=== PATIENT | male | born 1950 | race Caucasian/White ===

== ENCOUNTER 2019-08-13 09:08 | Inpatient (IN) ==
[2019-08-13] MEDS ORDERED: Ondansetron 4 MG/2 ML VIAL IVP ONE (09:27)
[2019-08-13] MEDS ORDERED: *HR* FentaNYL (PF) 100 MCG/2 ML VIAL IVP ONE ×3 (09:27→19:48)
[2019-08-13] MEDS ORDERED: 0.9 % Sodium Chloride 500 ML IVC ONE (09:28)
[2019-08-13 09:50] LABS: Basophils % 0.3 %; Eosinophils % 0.1 %; Hematocrit 30.2 % (37.5-50.1); Hemoglobin 10.3 g/dL (12.9-16.9); Immature Granulocytes % 0.3 % (0-4); Lymphocytes # 0.5 K/mcL (0.6-4.6); Lymphocytes % 3.8 %; Mean Corpuscular HGB Conc 34.1 g/dL (31.6-35.5); Mean Corpuscular Hemoglobin 31.7 pg (28.0-33.3); Mean Corpuscular Volume 92.9 fL (83.0-100.0); Mean Platelet Volume 10.8 fL (9.4-12.4); Neutrophils # 10.9 K/mcL (1.6-8.9); Platelet Count 226 K/mcL (140-400); Red Blood Count 3.25 M/mcL (4.19-5.50); Red Cell Distribution Width 13.2 % (11.5-14.5); Segmented Neutrophils % 87.5 %; White Blood Count 12.5 K/mcL (4.3-11.1)
[2019-08-13 10:01] LABS: INR 1.2; Prothrombin Time 13.7 Seconds (9.4-12.1)
--- NOTE | 2019-08-13 10:01 | Emergency Department Note ---
Disposition Clinical Impression: RAGHAVENDRA (acute kidney injury) Closed right hip fracture Qualifiers: Encounter type: initial encounter Qualified Code(s): S72.001A - Fracture of unspecified part of neck of right femur, initial encounter for closed fracture Disposition: Admitted As Inpatient Forms: ED Satisfaction Letter Time of Disposition: 10:02 Fall HPI - General Chief Complaint: ED Fall Stated Complaint: R Hip Pain/fall Time Seen by Provider: 08/13/19 09:19 Source: patient, EMS Limitations: no limitations Nursing Notes Reviewed: Yes Vital Signs Reviewed: Yes - History of Present Illness HPI Narrative: 68-year-old male presents to [facility] for a fall. States he was standing last night in turn too quickly and fell landing on his right hip. States is been unable to ambulate. He was able to crawl himself over to the chair today. He is been having to urinate on himself is unable to get up to be. He is concerned about a right hip fracture. He denies any LOC or any head or neck injury. Pending a right-sided right hip pain. Denies chest pain. No shortness of breath. Does not take any blood thinners. - Related Data Allergies Allergy/AdvReac Type Severity Reaction Status Date / Time No Known Allergies Allergy Verified 08/13/19 09:49 Review of Systems: Gen.: No fevers or chills or new weakness Eyes: Denies double vision or any vision changes Ears: Denies any otalgia Pharynx: Denies sore throat CV: Denies chest pain. Denies palpitations Respiratory: Denies any cough or sputum production. No shortness of breath. GI: Denies any nausea, vomiting, diarrhea, constipation. Denies abdominal pain Neuro: Denies any headache. No problems with ambulation. No numbness. Skin: Denies any rashes or abrasions Psych: Denies any depression or suicidal or homicidal ideation Musculoskeletal: Positive for right hip pain Fall PMH - Past Medical History Medical history: Reports: COPD, hypertension Psychiatric history: Reports: depression - Social History Smoking Status: Current every day smoker Alcohol use: Reports: rarely Drug use: Reports: none Physical Exam - General Limitations: no limitations General appearance: alert, in no apparent distress - Head Head exam: atraumatic, normocephalic - Eye Eye exam: Present: normal appearance - Neck Neck exam: Present: normal inspection, full ROM, trachea midline - Chest Chest inspection: Present: normal inspection, symmetric chest wall rise - Respiratory Respiratory exam: Present: wheezes - Cardiovascular Cardiovascular exam: Present: regular rate, normal rhythm - Abdominal Exam Abdominal exam: Present: soft, Non-Tender, normal bowel sounds - Expanded Lower Extremity Exam Hip/Pelvis exam: Present: tenderness (Patient has deformity to the right hip concerning for hip fracture. The right leg is externally rotated and shortened) - Back Exam Back exam: Present: normal inspection - Neurological Exam Neurological exam: Present: alert, oriented X3 - Psychiatric Psychiatric exam: Present: normal affect, normal mood - Skin Skin exam: Present: warm, dry, intact Course Vital Signs Temperature 98.9 F 08/13/19 09:13 Pulse Rate 96 08/13/19 09:13 Respiratory Rate 14 08/13/19 09:13 Blood Pressure 137/80 08/13/19 09:13 O2 Sat by Pulse Oximetry 96 08/13/19 09:13 Temperature 98.9 F 08/13/19 09:13 Pulse Rate 96 08/13/19 09:13 Respiratory Rate 14 08/13/19 09:13 Blood Pressure 137/80 08/13/19 09:13 O2 Sat by Pulse Oximetry 96 08/13/19 09:13 Oxygen Delivery Oxygen Delivery Room Air Fall - MDM Narrative Medical decision making narrative: Patient with obvious right hip fracture. Consult orthopedic we will admit to medicine. - Medical Records Medical records reviewed: Yes I reviewed the patient's medical records. - Lab Data Lab results reviewed: Yes I reviewed the patient's lab results. Result diagrams: 08/13/19 09:38 08/13/19 09:38 Lab Results 08/13/19 08/13/19 08/13/19 Range/Units 09:38 09:38 09:38 WBC 12.5 H (4.3-11.1) K/mcL RBC 3.25 L (4.19-5.50) M/mcL Hgb 10.3 L (12.9-16.9) g/dL Hct 30.2 L (37.5-50.1) % MCV 92.9 (83.0-100.0) fL MCH 31.7 (28.0-33.3) pg MCHC 34.1 (31.6-35.5) g/dL RDW 13.2 (11.5-14.5) % Plt Count 226 (140-400) K/mcL MPV 10.8 (9.4-12.4) fL Immature Gran % 0.3 (0-4) % Seg Neutrophils % 87.5 % Lymphocytes % 3.8 % Monocytes % 8.0 % Eosinophils % 0.1 % Basophils % 0.3 % Neutrophils # 10.9 H (1.6-8.9) K/mcL Lymphocytes # 0.5 L (0.6-4.6) K/mcL Monocytes # 1.0 (0.0-1.3) K/mcL Eosinophils # 0.0 (0.0-0.6) K/mcL Basophils # 0.0 (0.0-0.2) K/mcL PT 13.7 H (9.4-12.1) Seconds INR 1.2 Sodium 129 L (136-145) mEq/L Potassium 3.9 (3.5-5.1) mEq/L Chloride 92 L (98-107) mEq/L Carbon Dioxide 20 L (23-29) mEq/L BUN 26 H (8-23) mg/dL Creatinine 1.95 H (0.70-1.30) mg/dL Est GFR ( Amer) 42 L (> 60) Est GFR (Non-Af Amer) 34 L (> 60) BUN/Creatinine Ratio 13 (6-26) Glucose 118 H (70-105) mg/dL Calculated Osmolality 274 L (280-300) Calcium 8.9 (8.6-10.3) mg/dL - Radiology Data Radiology results reviewed: Yes I reviewed the patient's radiology results. - EKG Data EKG attestation: Yes I reviewed and interpreted this EKG. EKG results narrative: Rate of 94. No sinus rhythm. Normal axis. FL interval 159. QRS 102. QTC 479. No signs acute ischemia.
[2019-08-13 10:10] LABS: Calcium 8.9 mg/dL (8.6-10.3); Potassium 3.9 mEq/L (3.5-5.1)
[2019-08-13 11:23] LABS: Bilirubin,Urine Negative (Negative); Blood,Urine Negative (Negative); Clarity,Urine Clear (Clear); Color,Urine Yellow (Yellow); Glucose,Urine (UA) Normal (Normal); Ketones,Urine Trace mg/dL (Negative); Leukocyte Esterase,Urine Negative (Negative); Nitrite,Urine Negative (Negative); PH,Urine 5.5 pH Units (5.0-8.0); Protein,Urine Negative (Neg-Trace); Specific Gravity,Urine 1.013 (1.010-1.025); Urobilinogen,Urine Normal (Normal)
--- NOTE | 2019-08-13 11:38 | Internal Med History&Physical ---
Date of Encounter: 08/13/19 Time of Encounter: 11:35 Internal Medicine - H&P: HPI Chief complaint: fall Admitted From: Home Plans for Post Hospital Care: Home History of present illness: Mr. Petty is a 68 year old male past medical history of COPD and hypertension came in today after he fell yesterday with complain of right sided back pain. He said he fell yesterday sutures are around which is not completely able to explain. He said he might have slipped while turning too fast quickly on the right. He does mention history of dizziness for past few weeks. He denies being on any blood thinner. Denies previous significant falls. Denies any fevers chills nausea vomiting or diarrhea. He denies any history of heart attacks or stents. He denies any history of strokes or heart failure. He is taking any medication for blood pressure was not able to remember which one. Denies any allergies. Patient was evaluated in the ER where he was found to have right femoral intertrochanteric neck fracture commuted. He denied pain anywhere else. Chest x-ray did show subacute nondisplaced left rib fracture eighth and ninth however he did not have any pain. Not able to remember any event around it. Patient has chronic cough and he smokes 1-2 cigarettes a day. He is also on oxygen at home he says and uses nebulizer. Denies any increased cough or expectoration fevers or chills. He had some difficulty urinating and cramer catheter was placed in the ER. ER evaluation also showed RAGHAVENDRA however baseline function unknown. He denies any diabetes. Mild anemia and leukocytosis also noted. No obvious signs of bleeding or source of infection. Admission was requested for further management. Past Med Surg Social Fam HX - Past Medical History Medical history: COPD, hypertension Psychiatric history: depression - Past Surgical History Additional surgical history: tonsillectomy - Social History Smoking Status: Current every day smoker Alcohol use: rarely Drug use: none - Additional Family History Additional family history: No known family history Internal Medicine - H&P: Meds Allergy/AdvReac Type Severity Reaction Status Date / Time No Known Allergies Allergy Verified 08/13/19 09:49 All Systems PM: A 10-system review of systems was performed and is negative for pertinent findings except as documented above in the HPI. - Constitutional Vitals: Temp Pulse Resp BP Pulse Ox 98.9 F 96 15 145/81 96 08/13/19 09:13 08/13/19 09:13 08/13/19 11:14 08/13/19 11:14 08/13/19 09:13 Exam: Constitutional: Vitals as noted. Conversant. No Apparent Distress. poorly kept Eyes : Sclera white, conjunctiva clear, no lid lag, PEARLA. ENT : Grossly normal hearing. Moist mucus membranes. No JVD, no cervical lymphadenopathy. no thyromegaly or mass. Respiratory : Clear to auscultation bilaterally. No accessory muscle use, rales, rhonchi or wheezes Cardiovascular : RRR, +S1, +S2. no murmur, gallop, rubs. No chest wall tenderness GI/Abdominal : Soft, Non-tender, Non-distended, normal bowel sounds, soft, no peritoneal signs. no orgenomegaly or mass appreciated. no hernia. Musculoskeletal: no edema or cyanosis, warm extremities, pulses palpable and symmetrical in UE/LE. Rt leg extrenally rotated and pain with ROM, Lt leg without any pain. Neurological: AO X3, CN II-XII grossly intact, grossly normal motor and sensory exam. Skin: ecchymosis on both hand. bruise on Rt leg and Rt side of chest Pych: AOx3. Internal Med - H&P Results - Labs CBC & Chem 7: 08/13/19 09:38 08/13/19 09:38 Labs: Short CBC 08/13/19 Range/Units 09:38 WBC 12.5 H (4.3-11.1) K/mcL Hgb 10.3 L (12.9-16.9) g/dL Hct 30.2 L (37.5-50.1) % Plt Count 226 (140-400) K/mcL Neutrophils # 10.9 H (1.6-8.9) K/mcL BMP 08/13/19 09:38 Sodium 129 L Potassium 3.9 Chloride 92 L Carbon Dioxide 20 L BUN 26 H Creatinine 1.95 H Glucose 118 H Calcium 8.9 Urine 08/13/19 Range/Units 11:05 Urine Color Yellow (Yellow) Urine Clarity Clear (Clear) Urine pH 5.5 (5.0-8.0) pH Units Ur Specific [place] 1.013 (1.010-1.025) Urine Protein Negative (Neg-Trace) mg/dL Urine Glucose (UA) Normal (Normal) mg/dL - EKG Data -: EKG Interpreted by Myself EKG shows normal: sinus rhythm - EKG Data Prior EKG available for review: no - Impressions ITS Impressions Hip X-Ray 08/13/19 09:51 IMPRESSION: 1. Comminuted right femoral intertrochanteric neck fracture. D/ / 08/13/2019 09:56:55 Devang Collins MD / linda Interpreting Provider: Devang Collins MD Chest X-Ray 08/13/19 10:11 IMPRESSION: 1. Subacute healing nondisplaced left posterolateral 8th and 9th rib fractures. 2. No pneumothorax or acute pulmonary process. D/ / 08/13/2019 10:17:22 Karthik Herndon MD / jacque Interpreting Provider: Karthik Herndon MD - Assessment and Plan (1) Closed right hip fracture Current Visit: Yes Status: Acute Assessment and plan: Patient with closed right femoral intertrochanteric neck fracture which is comminuted. Patient not on any blood thinners. We will keep nothing by mouth after midnight for hospital surgery tomorrow. Ortho consulted and case discussed. RCRI risk score of 0. However he does appear to have elevated creatinine. Patient had low risk of undergoing surgery without any other workup. We will obtain echocardiogram given his risk factors of smoking and hypertension Control pain with Percocet and Zofran for nausea Qualifiers: Encounter type: initial encounter Qualified Code(s): S72.001A - Fracture of unspecified part of neck of right femur, initial encounter for closed fracture (2) Leukocytosis Current Visit: Yes Status: Acute Assessment and plan: Likely reactive from fall No signs of infection Monitor off antibiotics Qualifiers: Leukocytosis type: unspecified Qualified Code(s): D72.829 - Elevated white blood cell count, unspecified (3) RAGHAVENDRA (acute kidney injury) Current Visit: Yes Status: Acute Assessment and plan: Unknown baseline. Creatinine of 1.95. Patient was not able to urinate in ER and Cramer was placed. He said he did not feel urinating however when the catheter was placed and urine came out. Possible postrenal of prerenal component. We will keep on gentle IV fluids and repeat BMP later today. We will obtain urine sodium and creatinine. (4) Anemia Current Visit: Yes Status: Acute Assessment and plan: Patient with anemia of 10.3. Unknown baseline. Patient unaware of his anemia. We will obtain iron panel and ferritin, and B12 and folate Patient on a blood thinner and no signs of active bleeding. Will need outpatient colonoscopy workup. Qualifiers: Anemia type: unspecified type Qualified Code(s): D64.9 - Anemia, unspecified (5) DVT prophylaxis Current Visit: Yes Status: Acute Assessment and plan: Heparin subcutaneous - Time Spent With Patient Total time spent is greater than 50% in coordination of care (as documented) at patient's floor/unit and/or counseling patient:
[2019-08-13] MEDS ORDERED: *HR* FentaNYL (PF) 100 MCG/2 ML VIAL IVP PRN (11:50)
[2019-08-13] MEDS ORDERED: Ondansetron 4 MG/2 ML VIAL IVP PRN (11:59)
--- NOTE | 2019-08-13 13:16 | Orthopedic Consult Note ---
Date of Encounter: 08/13/19 Time of Encounter: 12:50 Assessment and Plan (1) Closed right hip fracture Current Visit: Yes Status: Acute Xrays showed right femoral intertrochanteric neck fracture. Discussed case with Dr. Eaton who recommends right hip IM nailing to be performed by him tomorrow 08/14. I discussed the procedure as well as r/b/a with the patient and he expressed understanding. All questions were answered. Consent was signed and placed in chart. NWB to RLE and no motion of RLE before surgery. NPO after midnight tonight. Pain control per primary team. Will likely require ECF placement for rehab as he lives alone DVT prophylaxis postop: lovenox for 2 weeks then aspirin 325mg daily for 4 weeks. Qualifiers: Encounter type: initial encounter Qualified Code(s): S72.001A - Fracture of unspecified part of neck of right femur, initial encounter for closed fracture History of Present Illness Chief complaint: right hip pain HPI: Mr. Petty is a 68 year old male presented to [facility] with right hip pain after fa ll last night in home around 9pm. He states he does not remember exactly why he fell but thinks he likely slipped on his floor as he was wearing socks on hardwood floor. States he often has dizzy spells so may have felt dizzy at the time. States landed on right side and has had right hip pain since then. currently pain is rated 1/10 and achy but becomes intense sharp with any movement. Denies any numbness or tingling in legs. Denies chest pain, SOB or fevers. Denies hitting his head in the fall or LOC. He chronically has raspy voice from his COPD. States he lives at home alone. He has a walker he uses only for long distances but around the house he usually does not need his walker. Past Med Surg Social Fam HX - Past Medical History Medical history: COPD, hypertension Psychiatric history: depression - Past Surgical History Additional surgical history: tonsillectomy - Social History Smoking Status: Current every day smoker Alcohol use: rarely Drug use: none Medications and Allergies Allergy/AdvReac Type Severity Reaction Status Date / Time No Known Allergies Allergy Verified 08/13/19 09:49 All Systems Reviewed: The remainder of the systems were reviewed and are negative - Constitutional Constitutional: as per HPI - Cardiovascular Cardiovascular: as per HPI - Respiratory Respiratory: as per HPI - Musculoskeletal Musculoskeletal: as per HPI Physical Exam - Constitutional Vitals: Temp Pulse Resp BP Pulse Ox 97.5 F L 91 14 129/72 90 08/13/19 12:28 08/13/19 12:28 08/13/19 12:28 08/13/19 12:28 08/13/19 12:28 - Hip right Tenderness with palpation: lateral (right hip has ecchymosis noted to lateral side. No visible open wounds or lesion, no erythema. RLE is shortened and externally rotated. tenderness to palpation to lateral hip. motion of hip and knee restricted secondary to known fracture good dorsiflexion of foot. sensation intact distally.) Results - Labs Result Diagrams: 08/13/19 09:38 08/13/19 09:38 Labs: Abnormal lab results WBC 12.5 K/mcL (4.3-11.1) H 08/13/19 09:38 RBC 3.25 M/mcL (4.19-5.50) L 08/13/19 09:38 Hgb 10.3 g/dL (12.9-16.9) L 08/13/19 09:38 Hct 30.2 % (37.5-50.1) L 08/13/19 09:38 Neutrophils # 10.9 K/mcL (1.6-8.9) H 08/13/19 09:38 Lymphocytes # 0.5 K/mcL (0.6-4.6) L 08/13/19 09:38 PT 13.7 Seconds (9.4-12.1) H 08/13/19 09:38 Sodium 129 mEq/L (136-145) L 08/13/19 09:38 Chloride 92 mEq/L (98-107) L 08/13/19 09:38 Carbon Dioxide 20 mEq/L (23-29) L 08/13/19 09:38 BUN 26 mg/dL (8-23) H 08/13/19 09:38 Creatinine 1.95 mg/dL (0.70-1.30) H 08/13/19 09:38 Est GFR ( Amer) 42 (> 60) L 08/13/19 09:38 Est GFR (Non-Af Amer) 34 (> 60) L 08/13/19 09:38 Glucose 118 mg/dL (70-105) H 08/13/19 09:38 Calculated Osmolality 274 (280-300) L 08/13/19 09:38 Urine Ketones Trace mg/dL (Negative) H 08/13/19 11:05 H & H 08/13/19 Range/Units 09:38 Hgb 10.3 L (12.9-16.9) g/dL Hct 30.2 L (37.5-50.1) % All other labs normal. - Diagnostic results Hip x-ray: report reviewed, image reviewed Consult Discharge Plan - Plan [facility]errals: [facility]Primary Care Provider[facility] - - Attending Attestation Case and plan of care discussed with supervising physician, Dr. Eaton, who was available for all aspects of care.
[2019-08-13] MEDS: 0.9 % Sodium Chloride 1,000 ML IVC SCH (13:52)
[2019-08-13] MEDS: *HR* OxyCODONE/APAP 5/325 TABLET PO PRN ×2 (13:52→17:59)
[2019-08-13] MEDS: *HR* Heparin 5,000 UNIT/ML VIAL SQ SCH ×3 (13:52→21:23)
--- NOTE | 2019-08-13 18:59 | Anesthesia Evaluation PreOp ---
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) Other Medical History: Denies Any Significant HX Anesthesia History: No Prior Anesthetic Complications, Past Anesthesia (tonsills) Alcohol Use: rarely Drug use: none Medications and Allergies Albuterol Sulfate [Proair Hfa] 2 puff PO Q4H PRN 08/13/19 [History] Cyclobenzaprine [Flexeril] 10 mg PO QAM 08/13/19 [History] Escitalopram [Lexapro] 20 mg PO QAM 08/13/19 [History] Ibuprofen [Ibu] 400 mg PO TID PRN 08/13/19 [History] Melatonin [Melatin] 9 mg PO HS 08/13/19 [History] Multivitamin [Daily Multiple Vitamin] 1 tab PO DAILY 08/13/19 [History] Naproxen [Naprosyn] 500 mg PO BID PRN 08/13/19 [History] hydrOXYzine HCl [Hydroxyzine HCl] 25 mg PO TID PRN 08/13/19 [History] Allergy/AdvReac Type Severity Reaction Status Date / Time No Known Allergies Allergy Verified 08/13/19 21:48 - Meds/Allergy Pre-op Review Medications Reviewed: Yes Allergies Reviewed: Yes Beta Blockers on Current Med List: No Anesthesia Results - Labs 08/13/19 09:38 08/13/19 18:31 Anesthesia Exam Vital Signs/O2 Sat, Most Current Temp Pulse Resp BP Pulse Ox 97.7 F 83 13 104/63 89 08/13/19 14:48 08/13/19 14:48 08/13/19 14:48 08/13/19 14:48 08/13/19 14:48 Weight: 47kg NPO (# of Hours): MN - HEENT Pupil (Motor): Pupils equal, EOMI Mallampati: II Teeth: Missing, Poor dentition Denture Type: Upper: Complete, Lower: Partial Oral Opening: Greater than 3 - CADDY/CADDIE SUPERVISOR LOC: Oriented CADDY/CADDIE SUPERVISOR Motor: Normal RUE, Normal LUE, Normal LLE, Normal Face, Deficit RLE (hip fx) CADDY/CADDIE SUPERVISOR Sensory: Normal: RUE, LUE, RLE, LLE, Face - Cardiac Rhythm: Regular - Pulmonary Breath Sounds: bilateral Clear Respiratory Effort: Symmetrical Anesthesia Assess/Plan ASA Score: 3 Level of consciousness: Cooperative Anesthetic Plan: General Monitoring Plan: Standard Monitors Recovery Plan: PACU
[2019-08-13 19:46] LABS: Potassium 3.9 mEq/L (3.5-5.1)
[2019-08-14] MEDS ORDERED: Ipratropium/Albuterol Neb 3 ML IH PRN ×2 (03:27→19:03)
[2019-08-14] MEDS: 0.9 % Sodium Chloride 1,000 ML IVC SCH ×2 (03:45→20:17)
[2019-08-14] MEDS: *HR* Heparin 5,000 UNIT/ML VIAL SQ SCH ×3 (06:12→23:35)
[2019-08-14 06:18] LABS: Basophils # 0.1 K/mcL (0.0-0.2); Basophils % 0.8 %; Eosinophils # 0.2 K/mcL (0.0-0.6); Eosinophils % 2.6 %; Hematocrit 24.6 % (37.5-50.1); Immature Granulocytes % 0.4 % (0-4); Lymphocytes % 13.3 %; Mean Corpuscular HGB Conc 33.7 g/dL (31.6-35.5); Mean Corpuscular Hemoglobin 31.4 pg (28.0-33.3); Mean Corpuscular Volume 93.2 fL (83.0-100.0); Mean Platelet Volume 10.1 fL (9.4-12.4); Monocytes # 0.8 K/mcL (0.0-1.3); Monocytes % 10.2 %; Neutrophils # 5.7 K/mcL (1.6-8.9); Platelet Count 245 K/mcL (140-400); Red Blood Count 2.64 M/mcL (4.19-5.50); Red Cell Distribution Width 13.3 % (11.5-14.5); Segmented Neutrophils % 72.7 %; White Blood Count 7.8 K/mcL (4.3-11.1)
[2019-08-14 06:19] LABS: Hemoglobin 8.3 g/dL (12.9-16.9)
[2019-08-14 06:37] LABS: BUN/Creatinine Ratio 17 (6-26); Blood Urea Nitrogen 22 mg/dL (8-23); Calcium 7.7 mg/dL (8.6-10.3); Carbon Dioxide 26 mEq/L (23-29); Chloride 99 mEq/L (98-107); Glucose 106 mg/dL (70-105); Osmolality,Calculated 276 (280-300); Sodium 131 mEq/L (136-145); eGFR For African Americans > 60 (> 60); eGFR For Non-African Americans 54 (> 60)
[2019-08-14 06:41] LABS: % Iron Saturation 15 % (20-55); Iron 28 mcg/dL (65-175); Transferrin 131 mg/dL (203-362)
[2019-08-14 06:53] LABS: Ferritin 399 ng/mL (20-250)
[2019-08-14 06:58] LABS: Folate 19.7 ng/mL (3.0-16.0)
--- NOTE | 2019-08-14 09:00 | Internal Med Progress Note ---
<Dillon Mcmullen - Last Filed: 08/14/19 13:27> Hospitalist Progress Note - Encounter Date of Encounter: 08/14/19 Time of Encounter: 09:55 - Exam Vitals: Temp Pulse Resp BP Pulse Ox 98.5 F 84 17 113/69 95 08/14/19 11:25 08/14/19 11:25 08/14/19 11:25 08/14/19 11:25 08/14/19 11:25 - Assessment and Plan (1) Closed right hip fracture Current Visit: Yes Status: Acute (2) Leukocytosis Current Visit: Yes Status: Acute (3) RAGHAVENDRA (acute kidney injury) Current Visit: Yes Status: Acute (4) Anemia Current Visit: Yes Status: Acute (5) DVT prophylaxis Current Visit: Yes Status: Acute - Time Spent with Patient Total time spent is greater than 50% in coordination of care (as documented) at patient's floor/unit and/or counseling patient: Internal Medicine: Result - Labs CBC & Chem 7: 08/14/19 05:51 08/14/19 05:51 Labs: Short CBC 08/14/19 Range/Units 05:51 WBC 7.8 (4.3-11.1) K/mcL Hgb 8.3 L D (12.9-16.9) g/dL Hct 24.6 L (37.5-50.1) % Plt Count 245 (140-400) K/mcL Neutrophils # 5.7 (1.6-8.9) K/mcL BMP 08/13/19 08/14/19 18:31 05:51 Sodium 129 L 131 L Potassium 3.9 4.0 Chloride 96 L 99 Carbon Dioxide 25 26 BUN 26 H 22 Creatinine 1.70 H 1.31 H Glucose 118 H 106 H Calcium 8.0 L 7.7 L - ABG Interpretation ABG results: PT/INR, D-dimer PT 13.7 Seconds (9.4-12.1) H 08/13/19 09:38 Consult Discharge Plan - Plan [facility]errals: [facility] [Primary Care Provider[facility] - - Attending Attestation I saw evaluated and examined this patient and reviewed objective data including labs and my medical decision-making was reviewed with the Resident Physician, Nataly Briggs. I agree with the documented findings, disposition and treatment plan as described except to any changes set forth below. We independently had [id number] contact with the patient. Patient lying down in bed. Reports pain only with movement involving his right hip. Does have underlying COPD and chronic respiratory failure and currently on baseline oxygen supplementation. Plan for surgery later today. Continue supportive care. Patient has anemia and is at risk for worsening of anemia post surgery. Will monitor hemoglobin levels and transfuse if hemoglobin less than 8. <ChesterNataly Winston - Last Filed: 08/14/19 19:00> Hospitalist Progress Note - Encounter Date of Encounter: 08/14/19 - Subjective Interval History: Car Petty is a 68-year-old male who presented yesterday after mechanical fall previous night. PMH includes COPD on O2 at night and nebulizers, and HTN. Patient reports that yesterday evening, he fell on right hip and was unable to walk afterward. He managed to crawl to a chair. In the ED, X-ray of right hip showed comminuted right femoral intertrochanteric neck fracture. Chest x-ray showed subacute healing nondisplaced left posterior lateral rib 8 and 9 fractures. No pneumothorax or acute pulmonary processes were seen. Orthopedic consult plans right hip IM nailing today. This morning, patient reports the pain is not bad. If he tries to move his leg or he touches it the pain however goes to 8 out of 10. He reports dizziness on standing lately. About one month ago he reports trying to sleep and his ribs really hurt at that time. X-ray done at the [place] at that time was unremarkable. - Exam Vitals: Temp Pulse Resp BP Pulse Ox 97.6 F 79 16 131/76 91 08/14/19 08:50 08/14/19 08:50 08/14/19 08:50 08/14/19 08:50 08/14/19 08:50 Exam: GEN.: Thin, awake, conversant. EYES: Anicteric, clear sclera. Pupils equal and reactive to light bilaterally HENT: Atraumatic, normocephalic. Moist mucosa NECK: Normal carotid pulses. Supple CV: Regular rate and rhythm. Normal S1 and S2. No murmurs, clicks, or gallops RESPIRATORY: Clear to auscultation bilaterally. No wheezes, rhonchi, rales. ABDOMEN: Soft, nontender, nondistended. Normal bowel sounds heard EXTREMITIES: No edema. Acyanotic. Warm, dry. Peripheral pulses 2+/4. Capillary refill <2 seconds SKIN: Patient has signs of venous stasis in lower extremities bilaterally. Multiple bruises over her hands and legs likely due to recent fall. - Assessment and Plan (1) Closed right hip fracture Current Visit: Yes Status: Acute Assessment and Plan: Orthopedics to follow. We will await their recommendations Have ordered incentive spirometry 6 times per hour after surgery -Continue DVT prophylaxis (2) RAGHAVENDRA (acute kidney injury) Current Visit: Yes Status: Acute Assessment and Plan: Creatinine was 1.31 today. We will continue to monitor this. Continue to give IV fluids. (3) Anemia Current Visit: Yes Status: Acute Assessment and Plan: Hemoglobin and hematocrit today were 8.3 and 24.6 and Trend hemoglobin and hematocrit every 6 hours after surgery Transfuse packed red blood cells if hemoglobin is less than 8. Iron studies were abnormal; have ordered ferrous sulfate 325 mg twice a day (4) Hypocalcemia Current Visit: Yes Status: Acute Assessment and Plan: Calcium level was 7.7 today, down from 8.0. We will continue to monitor calcium level Have ordered albumin level DVT Prophylaxis: Currently on subcutaneous heparin - Time Spent with Patient Total time spent is greater than 50% in coordination of care (as documented) at patient's floor/unit and/or counseling patient: Internal Medicine: Result - Labs CBC & Chem 7: 08/14/19 05:51 08/14/19 05:51 Labs: Short CBC 08/13/19 08/14/19 Range/Units 09:38 05:51 WBC 12.5 H 7.8 (4.3-11.1) K/mcL Hgb 10.3 L 8.3 L D (12.9-16.9) g/dL Hct 30.2 L 24.6 L (37.5-50.1) % Plt Count 226 245 (140-400) K/mcL Neutrophils # 10.9 H 5.7 (1.6-8.9) K/mcL BMP 08/13/19 08/13/19 08/14/19 09:38 18:31 05:51 Sodium 129 L 129 L 131 L Potassium 3.9 3.9 4.0 Chloride 92 L 96 L 99 Carbon Dioxide 20 L 25 26 BUN 26 H 26 H 22 Creatinine 1.95 H 1.70 H 1.31 H Glucose 118 H 118 H 106 H Calcium 8.9 8.0 L 7.7 L Urine 08/13/19 Range/Units 11:05 Urine Color Yellow (Yellow) Urine Clarity Clear (Clear) Urine pH 5.5 (5.0-8.0) pH Units Ur Specific [place] 1.013 (1.010-1.025) Urine Protein Negative (Neg-Trace) mg/dL Urine Glucose (UA) Normal (Normal) mg/dL - ABG Interpretation ABG results: PT/INR, D-dimer PT 13.7 Seconds (9.4-12.1) H 08/13/19 09:38 - Impressions Impressions Hip X-Ray 08/13/19 09:51 IMPRESSION: 1. Comminuted right femoral intertrochanteric neck fracture. D/ / 08/13/2019 09:56:55 Devang Collins MD / linda Interpreting Provider: Devang Collins MD Chest X-Ray 08/13/19 10:11 IMPRESSION: 1. Subacute healing nondisplaced left posterolateral 8th and 9th rib fractures. 2. No pneumothorax or acute pulmonary process. D/ / 08/13/2019 10:17:22 Karthik Herndon MD / jacque Interpreting Provider: Karthik Herndon MD <Dillon Mcmullen - Last Filed: 08/14/19 13:27> (1) Closed right hip fracture Qualifiers: Encounter type: initial encounter Qualified Code(s): S72.001A - Fracture of unspecified part of neck of right femur, initial encounter for closed fracture (2) Leukocytosis Qualifiers: Leukocytosis type: unspecified Qualified Code(s): D72.829 - Elevated white blood cell count, unspecified (4) Anemia Qualifiers: Anemia type: unspecified type Qualified Code(s): D64.9 - Anemia, unspecified <Nataly Briggs - Last Filed: 08/14/19 19:00> (1) Closed right hip fracture Qualifiers: Encounter type: initial encounter Qualified Code(s): S72.001A - Fracture of unspecified part of neck of right femur, initial encounter for closed fracture (3) Anemia Qualifiers: Anemia type: unspecified type Qualified Code(s): D64.9 - Anemia, unspecified
--- NOTE | 2019-08-14 09:53 | Electrocardiograph Report ---
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
[2019-08-14 15:19] LABS: Sodium, Urine 24.7 mEq/L
[2019-08-14] MEDS ORDERED: *HR* Succinylcholine 200 MG/10 ML VIAL IVP ONE (16:15)
[2019-08-14] MEDS ORDERED: *HR* FentaNYL (PF) 100 MCG/2 ML VIAL ONE ×2 (16:15→16:42)
[2019-08-14] MEDS ORDERED: *HR* Propofol 200 MG/20 ML VIAL IVP ONE (16:15)
[2019-08-14] MEDS ORDERED: Dexamethasone 4 MG/ML VIAL ONE (16:15)
[2019-08-14] MEDS ORDERED: Ondansetron 4 MG/2 ML VIAL ONE (16:15)
[2019-08-14] MEDS ORDERED: Lidocaine -MPF 2% 2 ML VIAL ONE (16:15)
[2019-08-14] MEDS ORDERED: *HR* PHENYLEPHRINE 1,000 MCG/10 ML SYRINGE IVP ONE (17:03)
[2019-08-14] MEDS ORDERED: Ringers Solution, Lactated 1,000 ML ONE (18:37)
[2019-08-14] MEDS ORDERED: Sennosides 8.6 MG TABLET PO PRN (19:03)
[2019-08-14] MEDS ORDERED: Ringers Solution, Lactated 1,000 ML IVC SCH (19:03)
[2019-08-14] MEDS ORDERED: Ondansetron 4 MG/2 ML VIAL IVP PRN ×2 (19:03)
[2019-08-14] MEDS ORDERED: 0.9 % Sodium Chloride 1,000 ML IVC SCH (19:03)
[2019-08-14] MEDS ORDERED: Melatonin 3 MG TABLET PO SCH (21:00)
[2019-08-14] MEDS: Melatonin 3 MG TABLET PO SCH (23:35)
--- NOTE | 2019-08-15 01:29 | Anesthesia Evaluation Post Op ---
Date of Encounter: 08/15/19 Time of Encounter: 18:46 - Vital Signs Vital Signs: Vital Signs/O2 Sat/Glucose, Most Current Temp Pulse Resp BP Pulse Ox 08/14/19 22:32 97.9 F 102 18 113/59 94 - Lungs Lungs: Clear Ascult./Percussion - Airway Airway: Non-obstructed - Cardiovascular Regular Rate - Mental Status Mental Status: Baseline Status - Pain Pain Scale: 0 Pain Scale used: Numeric (1 - 10) - Nausea Vomiting Nausea Vomiting: Not Present - Hydration Hydration: Ice chips - Discharge PostOp Status: Transfer Patient to floor
[2019-08-15 05:36] LABS: Basophils % 0.1 %; Hematocrit 22.6 % (37.5-50.1); Hemoglobin 7.7 g/dL (12.9-16.9); Immature Granulocytes % 0.6 % (0-4); Lymphocytes # 0.4 K/mcL (0.6-4.6); Lymphocytes % 4.1 %; Mean Corpuscular HGB Conc 34.1 g/dL (31.6-35.5); Mean Corpuscular Hemoglobin 31.7 pg (28.0-33.3); Mean Platelet Volume 10.1 fL (9.4-12.4); Monocytes # 0.7 K/mcL (0.0-1.3); Monocytes % 7.6 %; Neutrophils # 7.8 K/mcL (1.6-8.9); Platelet Count 256 K/mcL (140-400); Red Blood Count 2.43 M/mcL (4.19-5.50); Red Cell Distribution Width 13.3 % (11.5-14.5); Segmented Neutrophils % 87.6 %; White Blood Count 8.9 K/mcL (4.3-11.1)
[2019-08-15] MEDS: *HR* Heparin 5,000 UNIT/ML VIAL SQ SCH ×2 (05:43→17:55)
[2019-08-15 06:12] LABS: Alanine Aminotransferase 13 Units/L (7-52); Albumin 3.3 g/dL (3.5-5.7); Albumin/Globulin Ratio 1.3 (1.1-2.2); Alkaline Phosphatase 82 Units/L (34-104); Aspartate Amino Transferase 18 Units/L (13-39); BUN/Creatinine Ratio 17 (6-26); Bilirubin,Total 0.3 mg/dL (0.3-1.0); Blood Urea Nitrogen 16 mg/dL (8-23); Calcium 7.8 mg/dL (8.6-10.3); Carbon Dioxide 28 mEq/L (23-29); Chloride 101 mEq/L (98-107); Globulin 2.5 g/dL (2.4-3.5); Glucose 164 mg/dL (70-105); Osmolality,Calculated 285 (280-300); Potassium 4.8 mEq/L (3.5-5.1); Sodium 135 mEq/L (136-145); Total Protein 5.8 g/dL (6.4-8.9); eGFR For African Americans > 60 (> 60); eGFR For Non-African Americans > 60 (> 60)
[2019-08-15] MEDS ORDERED: Multivit/Ca/Min/Fe/FA 1 TAB TABLET PO SCH (09:00)
[2019-08-15] MEDS: Multivit/Ca/Min/Fe/FA 1 TAB TABLET PO SCH (09:56)
[2019-08-15] MEDS: Cholecalciferol (D-3) 1,000 UNIT (25MCG) TABLET PO SCH (09:56)
[2019-08-15] MEDS ORDERED: 0.9 % Sodium Chloride 250 ML ONE (12:47)
[2019-08-15] MEDS: Thiamine (B-1) 100 MG TABLET PO SCH (14:53)
--- NOTE | 2019-08-15 17:06 | Orthopedics Progress Note ---
Date of Encounter: 08/15/19 Time of Encounter: 14:00 - Assessment and Plan (1) History of orthopedic surgery Current Visit: Yes Status: Acute (2) Closed right hip fracture Current Visit: Yes Status: Acute Qualifiers: Encounter type: subsequent encounter Fracture healing: with routine healing Qualified Code(s): S72.001D - Fracture of unspecified part of neck of right femur, subsequent encounter for closed fracture with routine healing Subjective Principal diagnosis: s/p right hip IM nail Interval history: Patient now s/p right hip IM nail to right femoral intertrochanteric neck fracture on 08/14/[address] Eaton Patient seen at bedside. Patient continues to question what he broke and what surgical intervention was performed. A&Ox3 however patient seems confused about order of events Dressing and incision c/d/i. Patient noted to be picking at dressing and states repeatedly that he wants to "see my hip". Explained to patient and nurse in room during visit also explaining to leave dressing alone and not touch it as can lead to infection. Patient verbalizes understanding. No calf tenderness, erythema, or warmth. Neurovascularly intact b/l LE. Labwork, vitals, and medications reviewed. Pain control: Adequate Participating in therapy. All questions and concerns addressed. Educated on use of incentive spirometer, ambulation, and hydration. Patient educated on post-operative restrictions and care. Addressed: Weightbearing as tolerated. Would recommended protected weightbearing. Change dressing to Honeycomb dressing with tegaderm films overtop to prevent patient access to tape edges. Dressing should be able to provide water resistance. Patient course and disposition discussed with Dr. Eaton D/C plan:. Pain control per primary team. Will likely require ECF placement for rehab as he lives alone - therapy presently recommending home health. Social work involved and working on patients options. DVT prophylaxis postop: lovenox for 2 weeks then aspirin 325mg daily for 4 weeks. Keep outpatient follow up as scheduled. Please reach out with any questions or concerns regarding patient's orthopedic health. Objective Vital signs: Vital Signs Temp Pulse Resp BP Pulse Ox 08/15/19 13:14 98.1 F 92 14 158/84 99 08/15/19 12:59 98.5 F 83 14 127/72 99 08/15/19 11:10 97.9 F 85 18 152/77 99 08/15/19 06:38 99 F 87 16 126/57 94 08/15/19 03:50 99.5 F 91 16 122/52 92 08/14/19 22:32 97.9 F 102 18 113/59 94 08/14/19 20:00 97.7 F 110 16 104/70 98 08/14/19 19:30 97.4 F L 84 17 112/68 98 08/14/19 19:03 97.2 F L 83 19 131/76 95 08/14/19 18:53 97.8 F 84 18 126/73 93 08/14/19 18:40 97.8 F 86 18 124/74 98 08/14/19 18:30 93 18 129/73 100 08/14/19 18:20 96 22 118/71 100 08/14/19 18:10 97.4 F L 92 20 106/87 88 Intake and Output 08/15/19 08/15/19 08/15/19 07:59 15:59 23:59 Intake Total 100 / 700 600 / 700 Output Total 400 / 750 350 / 750 Balance -300 / -50 250 / -50 Intake: IV Fluids 100 / 100 Ancef 2,000 MG In 0.9 % Sodium 100 / 100 Chloride 100 ML @ 200 mls/hr IVPB Q8HR [facility] Rx#:[id number] Oral 600 / 600 Blood Product 0 / 0 Rbcs Leuko Poor As-1 Unit 0 / 0 [id number] Output: Urine 350 / 350 Catheter 400 / 400 - Labs CBC & BMP: 08/15/19 19:36 08/15/19 04:00 Labs: Abnormal lab results WBC 12.5 K/mcL (4.3-11.1) H 08/13/19 09:38 RBC 2.43 M/mcL (4.19-5.50) L 08/15/19 04:00 Hgb 7.7 g/dL (12.9-16.9) L 08/15/19 04:00 Hct 22.6 % (37.5-50.1) L 08/15/19 04:00 Neutrophils # 10.9 K/mcL (1.6-8.9) H 08/13/19 09:38 Lymphocytes # 0.4 K/mcL (0.6-4.6) L 08/15/19 04:00 PT 13.7 Seconds (9.4-12.1) H 08/13/19 09:38 Sodium 135 mEq/L (136-145) L 08/15/19 04:00 Chloride 96 mEq/L (98-107) L 08/13/19 18:31 Carbon Dioxide 20 mEq/L (23-29) L 08/13/19 09:38 BUN 26 mg/dL (8-23) H 08/13/19 18:31 Creatinine 1.31 mg/dL (0.70-1.30) H 08/14/19 05:51 Est GFR ( Amer) 49 (> 60) L 08/13/19 18:31 Est GFR (Non-Af Amer) 54 (> 60) L 08/14/19 05:51 Glucose 164 mg/dL (70-105) H 08/15/19 04:00 POC Glucose 114 mg/dL (70-99) H 08/14/19 11:24 Calculated Osmolality 276 (280-300) L 08/14/19 05:51 Calcium 7.8 mg/dL (8.6-10.3) L 08/15/19 04:00 Iron 28 mcg/dL (65-175) L 08/14/19 05:51 % Saturation 15 % (20-55) L 08/14/19 05:51 Transferrin 131 mg/dL (203-362) L 08/14/19 05:51 Ferritin 399 ng/mL (20-250) H 08/14/19 05:51 Serum Total Protein 5.8 g/dL (6.4-8.9) L 08/15/19 04:00 Albumin 3.3 g/dL (3.5-5.7) L 08/15/19 04:00 Vitamin B12 1195 pg/mL (250-1100) H 08/14/19 05:51 Folate 19.7 ng/mL (3.0-16.0) H 08/14/19 05:51 Urine Ketones Trace mg/dL (Negative) H 08/13/19 11:05 Crossmatch See Detail 08/15/19 09:53 Consult Discharge Plan - Plan Referrals: [facility] [Primary Care Provider] -
[2019-08-15] MEDS: *HR* Enoxaparin 30 MG/0.3 ML SYRINGE SQ SCH (17:56)
--- NOTE | 2019-08-15 19:00 | Internal Med Progress Note ---
<Nataly Briggs Catrachito - Last Filed: 08/15/19 18:56> Hospitalist Progress Note - Encounter Date of Encounter: 08/15/19 Time of Encounter: 09:25 - Subjective Interval History: Car Petty is a 68-year-old male past medical history of COPD and hypertension who presented yesterday for right hip fracture after mechanical fall. He was al so found to have two subacute healing rib fractures on chest x-ray. Patient underwent right hip surgical pinning yesterday evening. Today patient reports he feels "twice as good" as yesterday. He reports that he can now move and touch his right leg as well as walk on it without feeling any pain. Patient was hopeful that he could be discharged today but was agreeable to the need to remain in hospital another day. - Exam Vitals: Temp Pulse Resp BP Pulse Ox 97.8 F 77 16 139/70 98 08/15/19 16:00 08/15/19 16:00 08/15/19 16:00 08/15/19 16:00 08/15/19 16:00 Exam: GENERAL: Awake, conversant, pleasant affect. Thin appearance. In no acute distress EYES: Anicteric, clear sclerae. Pupils equal and reactive to light bilaterally. HENT: Atraumatic, normocephalic. Moist mucosa NECK: Supple. Normal carotid pulses. CV: Regular rate and rhythm. Normal S1 and S2. No murmurs, clicks, or gallops. RESPIRATORY: Clear to auscultation bilaterally. No wheezes, rhonchi, or rales. ABDOMEN: Soft, nontender, nondistended. Normal bowel sounds heard. EXTREMITIES: No edema. Peripheral pulses 2+/4. Capillary refill<2s SKIN: No rashes or lesions. Warm and dry. - Assessment and Plan (1) Closed right hip fracture Current Visit: Yes Status: Acute Assessment and Plan: Patient underwent surgical pinning for closed right hip fracture yesterday evening. Orthopedics continue to follow Hip and rib fractures in 68-year-old male without known fall or injury somewhat concerning. We will screen for potential of abuse tomorrow. (2) RAGHAVENDRA (acute kidney injury) Current Visit: Yes Status: Acute Assessment and Plan: Creatinine today was in normal range 0.94 Continuing to monitor Continuing to give IV fluids (3) Anemia Current Visit: Yes Status: Acute Assessment and Plan: Hemoglobin and hematocrit today were low at 7.7 and 22.6 Trending hemoglobin and hematocrit; hemoglobin and hematocrit levels ordered f or tonight Transfused 1 unit packed red blood cells today due to hemoglobin under 8 and existing COPD Iron studies were abnormal. Recommend follow-up as outpatient. (5) Hypocalcemia Current Visit: Yes Status: Acute Assessment and Plan: Calcium level today was low at 7.8. Albumin level was low at 3.3 and corrected calcium level was barely low at 8.4. We will recheck in the morning. DVT Prophylaxis: Currently on subcutaneous heparin - Time Spent with Patient Total time spent is greater than 50% in coordination of care (as documented) at patient's floor/unit and/or counseling patient: Internal Medicine: Result - Labs CBC & Chem 7: 08/15/19 04:00 08/15/19 04:00 Labs: Short CBC 08/15/19 Range/Units 04:00 WBC 8.9 (4.3-11.1) K/mcL Hgb 7.7 L (12.9-16.9) g/dL Hct 22.6 L (37.5-50.1) % Plt Count 256 (140-400) K/mcL Neutrophils # 7.8 (1.6-8.9) K/mcL BMP 08/15/19 04:00 Sodium 135 L Potassium 4.8 Chloride 101 Carbon Dioxide 28 BUN 16 Creatinine 0.94 Glucose 164 H Calcium 7.8 L Liver Function 08/15/19 Range/Units 04:00 Total Bilirubin 0.3 (0.3-1.0) mg/dL AST 18 (13-39) Units/L ALT 13 (7-52) Units/L Alkaline Phosphatase 82 (34-104) Units/L Albumin 3.3 L (3.5-5.7) g/dL - ABG Interpretation ABG results: PT/INR, D-dimer PT 13.7 Seconds (9.4-12.1) H 08/13/19 09:38 Consult Discharge Plan - Plan Referrals: [facility] [Primary Care Provider] - <Carmelina Dowell - Last Filed: 08/16/19 21:26> Hospitalist Progress Note - Encounter Date of Encounter: 08/16/19 - Exam Vitals: Temp Pulse Resp BP Pulse Ox 97.8 F 97 22 154/91 97 08/16/19 21:08 08/16/19 21:08 08/16/19 21:08 08/16/19 21:08 08/16/19 21:08 - Assessment and Plan (1) Closed right hip fracture Current Visit: Yes Status: Acute (2) Leukocytosis Current Visit: Yes Status: Acute (3) RAGHAVENDRA (acute kidney injury) Current Visit: Yes Status: Acute (4) Anemia Current Visit: Yes Status: Acute (5) DVT prophylaxis Current Visit: Yes Status: Acute - Time Spent with Patient Total time spent is greater than 50% in coordination of care (as documented) at patient's floor/unit and/or counseling patient: Internal Medicine: Result - Labs CBC & Chem 7: 08/16/19 12:18 08/16/19 05:05 Labs: Short CBC 08/16/19 08/16/19 Range/Units 05:05 12:18 WBC 7.0 (4.3-11.1) K/mcL Hgb 8.4 L 8.8 L (12.9-16.9) g/dL Hct 24.7 L 26.7 L (37.5-50.1) % Plt Count 253 (140-400) K/mcL Neutrophils # 4.6 (1.6-8.9) K/mcL BMP 08/16/19 05:05 Sodium 136 Potassium 4.3 Chloride 101 Carbon Dioxide 30 H BUN 12 Creatinine 0.76 Glucose 102 Calcium 8.0 L Liver Function 08/16/19 Range/Units 05:05 Albumin 3.0 L (3.5-5.7) g/dL - ABG Interpretation ABG results: PT/INR, D-dimer PT 13.7 Seconds (9.4-12.1) H 08/13/19 09:38 - Attending Attestation I saw evaluated and examined this patient and reviewed objective data including labs and my medical decision-making was reviewed with the Resident Physician. I agree with the documented findings, disposition and treatment plan as described except to any changes set forth below. We independently had [id number] contact with the patient. <Nataly Briggs - Last Filed: 08/15/19 18:56> (1) Closed right hip fracture Qualifiers: Encounter type: initial encounter Qualified Code(s): S72.001A - Fracture of unspecified part of neck of right femur, initial encounter for closed fracture (3) Anemia Qualifiers: Anemia type: unspecified type Qualified Code(s): D64.9 - Anemia, unspecified <Carmelina Dowell - Last Filed: 08/16/19 21:26> (1) Closed right hip fracture Qualifiers: Encounter type: subsequent encounter Fracture healing: with routine healing Qualified Code(s): S72.001D - Fracture of unspecified part of neck of right femur, subsequent encounter for closed fracture with routine healing (2) Leukocytosis Qualifiers: Leukocytosis type: unspecified Qualified Code(s): D72.829 - Elevated white blood cell count, unspecified (4) Anemia Qualifiers: Anemia type: unspecified type Qualified Code(s): D64.9 - Anemia, unspecified
[2019-08-15 19:50] LABS: Hematocrit 26.3 % (37.5-50.1); Hemoglobin 9.2 g/dL (12.9-16.9)
[2019-08-15] MEDS: Melatonin 3 MG TABLET PO SCH (21:43)
[2019-08-16 05:39] LABS: Basophils # 0.1 K/mcL (0.0-0.2); Basophils % 0.9 %; Eosinophils # 0.2 K/mcL (0.0-0.6); Eosinophils % 2.4 %; Hematocrit 24.7 % (37.5-50.1); Hemoglobin 8.4 g/dL (12.9-16.9); Immature Granulocytes % 0.9 % (0-4); Lymphocytes # 1.1 K/mcL (0.6-4.6); Lymphocytes % 16.3 %; Mean Corpuscular Hemoglobin 31.5 pg (28.0-33.3); Mean Corpuscular Volume 92.5 fL (83.0-100.0); Mean Platelet Volume 9.5 fL (9.4-12.4); Monocytes % 13.6 %; Neutrophils # 4.6 K/mcL (1.6-8.9); Platelet Count 253 K/mcL (140-400); Red Blood Count 2.67 M/mcL (4.19-5.50); Red Cell Distribution Width 13.8 % (11.5-14.5); Segmented Neutrophils % 65.9 %
[2019-08-16 05:58] LABS: BUN/Creatinine Ratio 16 (6-26); Blood Urea Nitrogen 12 mg/dL (8-23); Carbon Dioxide 30 mEq/L (23-29); Chloride 101 mEq/L (98-107); Glucose 102 mg/dL (70-105); Osmolality,Calculated 282 (280-300); Potassium 4.3 mEq/L (3.5-5.1); Sodium 136 mEq/L (136-145); eGFR For African Americans > 60 (> 60); eGFR For Non-African Americans > 60 (> 60)
[2019-08-16] MEDS: *HR* Enoxaparin 30 MG/0.3 ML SYRINGE SQ SCH ×2 (06:27→17:42)
[2019-08-16] MEDS: Cholecalciferol (D-3) 1,000 UNIT (25MCG) TABLET PO SCH (08:23)
[2019-08-16] MEDS: Multivit/Ca/Min/Fe/FA 1 TAB TABLET PO SCH (08:23)
[2019-08-16] MEDS: Thiamine (B-1) 100 MG TABLET PO SCH (08:23)
--- NOTE | 2019-08-16 08:53 | Discharge Summary ---
- NOTES TO OUTPATIENT PROVIDER Notes to Outpatient Provider: Patient was here for right hip fracture and was found to have healing rib fractures as well. History suggests abuse unlikely. Some derangements in Iron Panel, B12, and folate which bear follow-up. Date of Encounter: 08/16/19 Time of Encounter: 09:35 - Discharge Diagnosis (1) Closed right hip fracture Priority: Primary Status: Acute Qualifiers: Encounter type: subsequent encounter Fracture healing: with routine healing Qualified Code(s): S72.001D - Fracture of unspecified part of neck of right femur, subsequent encounter for closed fracture with routine healing (2) RAGHAVENDRA (acute kidney injury) Priority: Secondary Status: Acute (3) Anemia Priority: Secondary Status: Acute Qualifiers: Anemia type: unspecified type Qualified Code(s): D64.9 - Anemia, unspecified (4) Hypocalcemia Priority: Secondary Status: Acute Hospital course: Mr. Petty is a 68 year old male with past medical history of COPD and hypertension who presented to this hospital with right hip pain after mechanical fall previous night. Right hip x-ray showed comminuted right femoral intertrochanteric neck fracture. Chest x-ray showed subacute, healing, nondisplaced left posterolateral rib 8 and 9 fractures. There was no pneumothorax, or acute pulmonary process. He underwent right hip IM nailing 2 days ago. Calcium level was 7.8 but corrected to 8.4 with low albumin level was considered. H&H have been trending. Patient received 1 unit packed red blood cells yesterday due to hemoglobin 7.7 in context of COPD. Iron studies were abnormal with iron of 28%, saturation of 15, transfer and of 131, ferritin 399. Vitamin B12 and folate levels were both elevated at 1195 and 19.7. Patient reports he does not take supplements of B12 and folate. - Time Spent with Patient Total time spent providing and/or coordinating discharge services: - Discharge Medications Prescriptions: No Action Multivitamin [Daily Multiple Vitamin] 1 tab PO DAILY Melatonin [Melatin] 9 mg PO HS Ibuprofen [Ibu] 400 mg PO TID PRN PRN Reason: Pain hydrOXYzine HCl [Hydroxyzine HCl] 25 mg PO TID PRN PRN Reason: ANXIETY AND SLEEP Escitalopram [Lexapro] 20 mg PO QAM Cyclobenzaprine [Flexeril] 10 mg PO QAM Albuterol Sulfate [Proair Hfa] 2 puff PO Q4H PRN PRN Reason: Shortness Of Breath Naproxen [Naprosyn] 500 mg PO BID PRN PRN Reason: Pain Home Medications: Albuterol Sulfate [Proair Hfa] 2 puff PO Q4H PRN 08/13/19 [History] Cyclobenzaprine [Flexeril] 10 mg PO QAM 08/13/19 [History] Escitalopram [Lexapro] 20 mg PO QAM 08/13/19 [History] Ibuprofen [Ibu] 400 mg PO TID PRN 08/13/19 [History] Melatonin [Melatin] 9 mg PO HS 08/13/19 [History] Multivitamin [Daily Multiple Vitamin] 1 tab PO DAILY 08/13/19 [History] Naproxen [Naprosyn] 500 mg PO BID PRN 08/13/19 [History] hydrOXYzine HCl [Hydroxyzine HCl] 25 mg PO TID PRN 08/13/19 [History] Allergies/Adverse Reactions: Allergy/AdvReac Type Severity Reaction Status Date / Time No Known Allergies Allergy Verified 08/13/19 21:48 Date of admission: 08/14/19 15:17 [facility] care physician: [facility] Consults: 08/13/19 12:00 Consult to Orthopedic Surgery [CONS] Routine Consulting Provider: Orthopedic and Sports Medicine Reason for Consult: Rt hip intertrochantric fracture Call Completed: Yes 08/13/19 13:46 Consult to Loss Prevention Research Engineer [CONS] Routine Reason for SW Consult: patient states that he has lost weight d/t not having a way to get food to home 08/14/19 19:03 Consult to Orthopedic Navigator [CONS] [CONS] Routine Consult to Physical Therapy [CONS] Routine Comment: Evaluate, develop and implement POC Reason for Consult: post hip surgery Does patient have active BEDREST order?: No Is patient medically & hemodynamically stable?: Yes Patient assessed for mobility or mobilized this visit?: No Consult to Loss Prevention Research Engineer [CONS] Routine Reason for SW Consult: post -op hip fracture RT Post Op Consult [CONS] Routine Discharging clinician: Natayl Briggs Anticipated date of discharge: 08/16/19 - Constitutional Vitals: Temp Pulse Resp BP Pulse Ox 97.9 F 91 16 178/89 96 08/16/19 08:38 08/16/19 08:38 08/16/19 08:38 08/16/19 08:38 08/16/19 08:38 Exam: GENERAL: Awake, conversant, pleasant affect. Thin appearance. In no acute distress EYES: Anicteric, clear sclerae. Pupils equal and reactive to light bilaterally. HENT: Atraumatic, normocephalic. Moist mucosa NECK: Supple. Normal carotid pulses. CV: Regular rate and rhythm. Normal S1 and S2. No murmurs, clicks, or gallops. RESPIRATORY: Diffuse wheezing present in all lung peña. No rhonchi or rales. ABDOMEN: Soft, nontender, nondistended. Normal bowel sounds heard. EXTREMITIES: No edema. Peripheral pulses 2+/4. Capillary refill<2s SKIN: No rashes or lesions. Warm and dry. - Discharge Instructions Follow Up With: [facility] [Primary Care Provider] -
--- NOTE | 2019-08-16 10:06 | Operative Note ---
Date of procedure: 08/14/19 Pre-op diagnosis: Right hip intertrochanteric fracture Post-op diagnosis: same Procedure: Right hip intramedullary nailing Implants: Synthes TFN A Anesthesia: JONATANA Surgeon: Bret Eaton Was there an senior assistant manager present: No Estimated blood loss (cc): 200 Specimen: 0 Condition: stable Disposition: PACU Procedure in Detail: The patient received IV antibiotics in the holding area. She was brought to the operating room, sign in was performed. The patient underwent general anesthesia on the hospital bed. He was then transferred to the fracture table in supine position. The patient was positioned with the support groin post, the affected right lower extremity in the traction abbott and the contralateral lower extremity in a well-padded limb abbott with a hip flexed and abducted out of the way. Fluoroscopy was then brought in, the fractures visualized, and the fracture reduced. We checked on AP and true lateral view of the hip. Once satisfactory the right hip, from the pelvis down to the knee, was prepped and draped in usual sterile fashion. A timeout was performed. The level of the greater trochanter was palpated, a 4-5 cm oblique incision was made just proximally, , followed by Bovie dissection. The hip abductor was sharply split in line with its fibers with a curved Funes scissors. The tip of the greater trochanter was palpable. A guidewire was then positioned on the tip. Its position was checked on fluoroscopy, slightly advanced, and we checked the lateral view. Once appropriately positioned, the core overdrill was then used to open the proximal femur down to level of the lesser trochanter. A short Trochanteric Femoral Nail Advanced with 130 degree neck angle, 10 mm diameter, was assembled, and appropriately inserted into the proximal femur. The intramedullary canal was too tight for the nail to fit. The nails removed and flexible reamers were then used to open up the canal. I reamed up to 11.5 mm. The intramedullary nail was then replaced. The appropriate level was checked under fluoroscopy. The triple trochars of 130 degree neck angle was then positioned against the skin, checking fluoroscopy for positioning. Once satisfactory a 2.5 cm incision was made, the fascia was bluntly split along with the muscle fibers of the vastus lateralis. The triple trocar was advanced up against the lateral cortex. The guidepin was then driven up into the femoral head, checking AP and lateral views. The wire was adjusted as needed. A 95 mm long helical blade was chosen. Overdrilled the guidewire, and the helical blade was tapped in place over the guidewire in standard technique. Once close to the edge of the femoral head, the setscrew was then screwed down. Traction was then taken off the leg, and the fracture compressed. The triple trochars for the distal static locking screw were placed in the jig, a 1 cm longitudinal incision was made. The trochars were advanced to the cortex, and drilled across. The depth was measured and a 36 mm long by 5 mm bicortical screw was placed. All trochars and jig were removed. Final fluoroscopy shots were taken and saved showing good AP and lateral views of the hip and also distally at the tip of the nail. The wounds were irrigated with normal saline. Fascia over the abductors was closed with 0 Vicryl [id number] stitches, including the deep subcutaneous fat layer. Subcutaneous tissues were closed with 2-0 Vicryl, and the skin incisions were closed with charlie. Sterile dressings were applied. The patient was transferred to hospital bed where she was extubated and taken to recovery room in stable condition.
[2019-08-16] MEDS: Ipratropium/Albuterol Neb 3 ML IH SCH ×5 (10:26→23:38)
[2019-08-16] MEDS: predniSONE 20 MG TABLET PO SCH (11:37)
[2019-08-16 12:36] LABS: Hematocrit 26.7 % (37.5-50.1); Hemoglobin 8.8 g/dL (12.9-16.9)
--- NOTE | 2019-08-16 17:14 | Internal Med Progress Note ---
<Nataly Briggs - Last Filed: 08/16/19 17:09> Hospitalist Progress Note - Encounter Date of Encounter: 08/16/19 Time of Encounter: 09:25 - Subjective Interval History: Patient reports still feeling well but admits some muscle pain in back and down into legs. He expressed willingness to be discharged today if necessary but said he preferred staying until tomorrow if possible. On discussing living situation, he reports that he lives alone with his cat. He is not in a relationship and has no family nearby; nearest family is a sister who lives in [place]. He receives very few visitors and all of his friends are in [place] or [place]. 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 He denied feeling unsafe or in danger from any person in his life. He does not have carpet or rugs in his apartment. He owns a walker and is willing to use this as he regains strength when he goes home. - Exam Vitals: Temp Pulse Resp BP Pulse Ox 98.6 F 88 19 181/91 96 08/16/19 16:42 08/16/19 16:42 08/16/19 16:42 08/16/19 16:42 08/16/19 16:42 Exam: GENERAL: Awake, conversant, pleasant affect. Thin appearance. In no acute distress EYES: Anicteric, clear sclerae. Pupils equal and reactive to light bilaterally. HENT: Atraumatic, normocephalic. Moist mucosa NECK: Supple. Normal carotid pulses. CV: Regular rate and rhythm. Normal S1 and S2. No murmurs, clicks, or gallops. RESPIRATORY: Diffuse wheezing present in all lung peña. No rhonchi or rales. ABDOMEN: Soft, nontender, nondistended. Normal bowel sounds heard. EXTREMITIES: No edema. Peripheral pulses 2+/4. Capillary refill<2 sec. Clean, dry surgical dressings over right hip. SKIN: No rashes or lesions. Warm and dry. Multiple bruises on right hip. - Assessment and Plan (1) Closed right hip fracture Current Visit: Yes Status: Acute Assessment and Plan: Patient underwent right hip IM nail to right femoral intertrochanteric neck fracture on 08/14. -Will followup with Orthopedic office as outpatient as scheduled -Currently on oxycodone 10 mg PRN for postsurgical pain management. -Patient will likely need discharge to SNF upon discharge, as he lives alone (2) RAGHAVENDRA (acute kidney injury) Current Visit: Yes Status: Acute Assessment and Plan: At presentation, creatinine was elevated at 1.95. -Creatinine levels have now improved and have been in normal range for two days; today's level was 0.76. -Patient is no longer on IVF. (3) Anemia Current Visit: Yes Status: Acute Assessment and Plan: Hemoglobin and hematocrit have been low on this stay. Patient received 1 U pRBCs yesterday, due to hemoglobin of 7.7 in context of COPD. -H&H this afternoon were low but improved at 8.8 and 26.7 respectively. -Continuing to monitor (4) Elevated blood pressure reading with diagnosis of hypertension Current Visit: Yes Status: Acute Assessment and Plan: Beginning yesterday, patient began having elevated blood pressure readings as high as 181/91. -IVP hydralazine 20 mg q6h has been ordered with parameter of SBP over 160. -Will continue to monitor. (5) Hypocalcemia Current Visit: Yes Status: Acute Assessment and Plan: Calcium level today was 8.0 mg/dL which, corrected for low albumin of 3.0, was normal at 8.8. - Time Spent with Patient Total time spent is greater than 50% in coordination of care (as documented) at patient's floor/unit and/or counseling patient: Internal Medicine: Result - Labs CBC & Chem 7: 08/16/19 12:18 08/16/19 05:05 Labs: Short CBC 08/15/19 08/16/19 08/16/19 Range/Units 19:36 05:05 12:18 WBC 7.0 (4.3-11.1) K/mcL Hgb 9.2 L D 8.4 L 8.8 L (12.9-16.9) g/dL Hct 26.3 L 24.7 L 26.7 L (37.5-50.1) % Plt Count 253 (140-400) K/mcL Neutrophils # 4.6 (1.6-8.9) K/mcL BMP 08/16/19 05:05 Sodium 136 Potassium 4.3 Chloride 101 Carbon Dioxide 30 H BUN 12 Creatinine 0.76 Glucose 102 Calcium 8.0 L Liver Function 08/16/19 Range/Units 05:05 Albumin 3.0 L (3.5-5.7) g/dL - ABG Interpretation ABG results: PT/INR, D-dimer PT 13.7 Seconds (9.4-12.1) H 08/13/19 09:38 Consult Discharge Plan - Plan Referrals: [facility] [Primary Care Provider] - <Radha Dowell Krissfernando - Last Filed: 08/16/19 21:23> Hospitalist Progress Note - Encounter Date of Encounter: 08/16/19 - Exam Vitals: Temp Pulse Resp BP Pulse Ox 98.2 F 107 18 161/80 97 08/16/19 18:11 08/16/19 19:29 08/16/19 20:29 08/16/19 19:33 08/16/19 20:29 - Assessment and Plan (1) Closed right hip fracture Current Visit: Yes Status: Acute (2) Leukocytosis Current Visit: Yes Status: Acute (3) RAGHAVENDRA (acute kidney injury) Current Visit: Yes Status: Acute (4) Anemia Current Visit: Yes Status: Acute (5) DVT prophylaxis Current Visit: Yes Status: Acute - Time Spent with Patient Total time spent is greater than 50% in coordination of care (as documented) at patient's floor/unit and/or counseling patient: Internal Medicine: Result - Labs CBC & Chem 7: 08/16/19 12:18 08/16/19 05:05 Labs: Short CBC 08/16/19 08/16/19 Range/Units 05:05 12:18 WBC 7.0 (4.3-11.1) K/mcL Hgb 8.4 L 8.8 L (12.9-16.9) g/dL Hct 24.7 L 26.7 L (37.5-50.1) % Plt Count 253 (140-400) K/mcL Neutrophils # 4.6 (1.6-8.9) K/mcL BMP 08/16/19 05:05 Sodium 136 Potassium 4.3 Chloride 101 Carbon Dioxide 30 H BUN 12 Creatinine 0.76 Glucose 102 Calcium 8.0 L Liver Function 08/16/19 Range/Units 05:05 Albumin 3.0 L (3.5-5.7) g/dL - ABG Interpretation ABG results: PT/INR, D-dimer PT 13.7 Seconds (9.4-12.1) H 08/13/19 09:38 - Attending Attestation I saw evaluated and examined this patient and reviewed objective data including labs and my medical decision-making was reviewed with the Resident Physician. I agree with the documented findings, disposition and treatment plan as described except to any changes set forth below. We independently had [id number] contact with the patient. Patient developed some wheezing today. Required Duo Nebs, breathing improved. Patient still displays episodes of confusion while he is AAO x3, likely this is patient's baseline as he has no acute findings. Patient has multiple issues currently requiring skilled needs. This is complicated by likely an underlying dementia. PT/OT noted that patient is impulsive and appears to ignore the need for his walker. During these times he's noted to be limp and unsteady. At times he thinks he will be heading towards the kitchen and gets up quickly witho ut assistance. It is also noted that patient needs cueing for safety awareness, impulsiveness, and inabilty to concentrate on walking technique. He is also having complaints of urinary retention. He had 200 ml void but bladder scan showed 240 post void. DVT prophylaxis for this high risk patient is Lovenox SQ for two weeks, which patient will likely be unable to do so for himself at home. There is high chance he would not administer medication correctly, or missing doses which puts him at high risk for DVT. COPD exacerbation: Significantly improved today shortly after starting Duo Nebs and Prednisone. Urinary retention: Continue Flomax, monitor urine output. <Nataly Briggs - Last Filed: 08/16/19 17:09> (1) Closed right hip fracture Qualifiers: Encounter type: subsequent encounter Fracture healing: with routine healing Qualified Code(s): S72.001D - Fracture of unspecified part of neck of right femur, subsequent encounter for closed fracture with routine healing (3) Anemia Qualifiers: Anemia type: unspecified type Qualified Code(s): D64.9 - Anemia, unspecified <Carmelina Dowell - Last Filed: 08/16/19 21:23> (1) Closed right hip fracture Qualifiers: Encounter type: subsequent encounter Fracture healing: with routine healing Qualified Code(s): S72.001D - Fracture of unspecified part of neck of right femur, subsequent encounter for closed fracture with routine healing (2) Leukocytosis Qualifiers: Leukocytosis type: unspecified Qualified Code(s): D72.829 - Elevated white blood cell count, unspecified (4) Anemia Qualifiers: Anemia type: unspecified type Qualified Code(s): D64.9 - Anemia, unspecified
[2019-08-16] MEDS: Melatonin 3 MG TABLET PO SCH (21:12)
[2019-08-17] MEDS: Ipratropium/Albuterol Neb 3 ML IH SCH ×6 (04:00→23:10)
[2019-08-17] MEDS: *HR* Enoxaparin 30 MG/0.3 ML SYRINGE SQ SCH (04:57)
[2019-08-17 05:19] LABS: Basophils % 0.3 %; Eosinophils % 0.1 %; Hemoglobin 8.3 g/dL (12.9-16.9); Immature Granulocytes % 1.4 % (0-4); Lymphocytes # 0.9 K/mcL (0.6-4.6); Lymphocytes % 11.8 %; Mean Corpuscular HGB Conc 33.2 g/dL (31.6-35.5); Mean Corpuscular Hemoglobin 30.7 pg (28.0-33.3); Mean Corpuscular Volume 92.6 fL (83.0-100.0); Mean Platelet Volume 9.7 fL (9.4-12.4); Monocytes # 0.7 K/mcL (0.0-1.3); Neutrophils # 5.7 K/mcL (1.6-8.9); Platelet Count 300 K/mcL (140-400); Red Cell Distribution Width 13.6 % (11.5-14.5); Segmented Neutrophils % 76.4 %; White Blood Count 7.4 K/mcL (4.3-11.1)
[2019-08-17 05:41] LABS: BUN/Creatinine Ratio 17 (6-26); Blood Urea Nitrogen 11 mg/dL (8-23); Calcium 8.4 mg/dL (8.6-10.3); Carbon Dioxide 32 mEq/L (23-29); Chloride 95 mEq/L (98-107); Glucose 129 mg/dL (70-105); Osmolality,Calculated 275 (280-300); Sodium 132 mEq/L (136-145); eGFR For African Americans > 60 (> 60); eGFR For Non-African Americans > 60 (> 60)
[2019-08-17] MEDS: predniSONE 20 MG TABLET PO SCH (08:50)
[2019-08-17] MEDS: Thiamine (B-1) 100 MG TABLET PO SCH (08:50)
[2019-08-17] MEDS: Cholecalciferol (D-3) 1,000 UNIT (25MCG) TABLET PO SCH (08:51)
[2019-08-17] MEDS: Multivit/Ca/Min/Fe/FA 1 TAB TABLET PO SCH (08:51)
[2019-08-17 10:05] LABS: Hematocrit 24.2 % (37.5-50.1); Hemoglobin 8.2 g/dL (12.9-16.9)
--- NOTE | 2019-08-17 11:38 | Orthopedics Progress Note ---
Date of Encounter: 08/17/19 Time of Encounter: 14:00 - Assessment and Plan (1) History of orthopedic surgery Current Visit: Yes Status: Acute (2) Closed right hip fracture Current Visit: Yes Status: Acute Qualifiers: Encounter type: subsequent encounter Fracture healing: with routine healing Qualified Code(s): S72.001D - Fracture of unspecified part of neck of right femur, subsequent encounter for closed fracture with routine healing Subjective Principal diagnosis: s/p right hip IM nail Interval history: Patient now s/p right hip IM nail to right femoral intertrochanteric neck fracture on 08/14/[address] Eaton Patient seen at bedside. Patient continues to question what he broke and what surgical intervention was performed. A&Ox3 however patient seems confused about order of events Dressing saturated with blood. Incision bleeding. No calf tenderness, erythema, or warmth. Neurovascularly intact b/l LE. Labwork, vitals, and medications reviewed. Pain control: Adequate Participating in therapy. All questions and concerns addressed. Educated on use of incentive spirometer, ambulation, and hydration. Patient educated on post-operative restrictions and care. Addressed: Weightbearing as tolerated. Would recommended protected weightbearing. Change dressing to pressure dressing with hip spica application for additional pressure Patient course and disposition discussed with Dr. Eaton D/C plan:. Pain control per primary team. Will likely require ECF placement for rehab as he lives alone - therapy presently recommending home health. Social work involved and working on patients options. DVT prophylaxis postop: 81mg daily for 6 weeks. Keep outpatient follow up as scheduled. Please reach out with any questions or concerns regarding patient's orthopedic health. Objective Vital signs: Vital Signs Temp Pulse Resp BP Pulse Ox 08/17/19 11:16 98.2 F 91 20 150/78 98 08/17/19 11:07 18 95 08/17/19 07:33 98.0 F 108 20 165/80 96 08/17/19 07:24 18 97 08/17/19 04:01 18 99 08/17/19 02:22 99.7 F H 73 18 150/79 94 08/16/19 23:52 18 154/81 98 08/16/19 22:26 98 F 82 20 154/81 97 08/16/19 21:13 97 08/16/19 21:08 97.8 F 97 22 154/91 97 08/16/19 20:29 18 97 08/16/19 19:33 161/80 08/16/19 19:29 107 24 98 08/16/19 18:40 116 24 93 08/16/19 18:11 98.2 F 102 18 136/71 97 08/16/19 16:42 98.6 F 88 19 181/91 96 08/16/19 15:26 18 98 08/16/19 12:14 98 F 88 16 150/83 97 08/16/19 12:00 97 08/16/19 11:39 18 97 Intake and Output 08/16/19 08/17/19 08/17/19 23:59 07:59 15:59 Intake Total 120 / 120 0 / 240 240 / 240 Output Total 225 / 775 400 / 600 200 / 600 Balance -105 / -655 -400 / -360 40 / -360 Intake: Oral 120 / 120 0 / 240 240 / 240 Output: Urine 225 / 775 400 / 600 200 / 600 Other: Meal Dinner Breakfast Percent of Meal Consumed 45% 50% Stool Size Small Small Stool Consistency formed formed Stool Color Brown Brown # Voids 1 1 1 # Bowel Movements 1 1 Weight 54.88 kg Patient Weight 08/17/19 23:59 Weight 54.88 kg - Labs CBC & BMP: 08/17/19 09:48 08/17/19 04:35 Labs: Abnormal lab results WBC 12.5 K/mcL (4.3-11.1) H 08/13/19 09:38 RBC 2.70 M/mcL (4.19-5.50) L 08/17/19 04:35 Hgb 8.2 g/dL (12.9-16.9) L 08/17/19 09:48 Hct 24.2 % (37.5-50.1) L 08/17/19 09:48 Neutrophils # 10.9 K/mcL (1.6-8.9) H 08/13/19 09:38 Lymphocytes # 0.4 K/mcL (0.6-4.6) L 08/15/19 04:00 PT 13.7 Seconds (9.4-12.1) H 08/13/19 09:38 Sodium 132 mEq/L (136-145) L 08/17/19 04:35 Chloride 95 mEq/L (98-107) L 08/17/19 04:35 Carbon Dioxide 32 mEq/L (23-29) H 08/17/19 04:35 BUN 26 mg/dL (8-23) H 08/13/19 18:31 Creatinine 0.65 mg/dL (0.70-1.30) L 08/17/19 04:35 Est GFR ( Amer) 49 (> 60) L 08/13/19 18:31 Est GFR (Non-Af Amer) 54 (> 60) L 08/14/19 05:51 Glucose 129 mg/dL (70-105) H 08/17/19 04:35 POC Glucose 114 mg/dL (70-99) H 08/14/19 11:24 Calculated Osmolality 275 (280-300) L 08/17/19 04:35 Calcium 8.4 mg/dL (8.6-10.3) L 08/17/19 04:35 Iron 28 mcg/dL (65-175) L 08/14/19 05:51 % Saturation 15 % (20-55) L 08/14/19 05:51 Transferrin 131 mg/dL (203-362) L 08/14/19 05:51 Ferritin 399 ng/mL (20-250) H 08/14/19 05:51 Serum Total Protein 5.8 g/dL (6.4-8.9) L 08/15/19 04:00 Albumin 3.0 g/dL (3.5-5.7) L 08/16/19 05:05 Vitamin B12 1195 pg/mL (250-1100) H 08/14/19 05:51 Folate 19.7 ng/mL (3.0-16.0) H 08/14/19 05:51 Urine Ketones Trace mg/dL (Negative) H 08/13/19 11:05 Crossmatch See Detail 08/15/19 09:53 Consult Discharge Plan - Plan [facility]errals: [facility] [Primary Care Provider] -
--- NOTE | 2019-08-17 13:28 | Internal Med Progress Note ---
<Nataly Briggs Catrachito - Last Filed: 08/17/19 18:19> Hospitalist Progress Note - Encounter Date of Encounter: 08/17/19 Time of Encounter: 10:20 - Subjective Interval History: Mr. Petty is a 68-year-old male who presented to this facility for right hip fracture, which has now been treated with hip IM pinning. Overnight, he had an episode of epistaxis. As a result, his morning Lovenox dose was held. Through today, he has had postvoid residual urines of approximately 200 mL. Walking short distances, such as from toilet to bed, are causing significant exertional dyspnea from which patient requires several minutes to rest and recover. He denies his exertional dyspnea has ever been to this level before. Patient would like to be transferred to [place]; a conversation with social work revealed that [facility] has refused him due to PT recommendation of discharge to home with Home Health. Current plan is for discharge to [place]. - Exam Vitals: Temp Pulse Resp BP Pulse Ox 98.2 F 91 20 150/78 98 08/17/19 11:16 08/17/19 11:16 08/17/19 11:16 08/17/19 11:16 08/17/19 11:16 Exam: GENERAL: Thin-appearing. Awake, conversant. Became very short of breath after walking from restroom to bed. EYES: Anicteric, clear sclerae. Pupils equal and reactive to light bilaterally. HENT: Atraumatic, normocephalic. Moist mucosa. Poor dentition. NECK: Supple, normal carotid pulses. CV: Regular rate and rhythm. Normal S1 and S2. No murmurs, clicks, or gallops. RESPIRATORY/CHEST: Nontender to palpation. Patient showed signs of respiratory distress after walking short distance. Mild diffuse wheezes. Rales heard right lower lung field. No rhonchi. ABDOMEN: Soft, nontender, nondistended. Normal bowel sounds heard EXTREMITIES: Physical dressing was present on the right hip. No edema. Peripheral pulses 2+/4. Capillary refill<2 sec SKIN: Bruises present. Warm, dry. - Assessment and Plan (1) Closed right hip fracture Current Visit: Yes Status: Acute Assessment and Plan: Patient presented for comminuted right femoral intertrochanteric neck fracture. He underwent IM hip nailing on 08/14 with good result. Of note, CXR incidentally found subacute healing left ribs 8 and 9 fractures of which patient was unaware. Post-operatively, patient was put on incentive spirometry and continued on DVT prophylaxis. -Rt Hip XR today showed near anatomic alignment of right intertrochanteric fracture with no hardware complication. There was no acute fracture or dislocation of pelvis. -Patient is walking with walker -Pain management currently with oxycodone. -Currently planning for patient to remain inpatient over weekend; will likely discharge to [place] on Tuesday. -DVT prophylaxis is lovenox for 2 weeks followed by aspirin 325 mg/day for 4 weeks. (2) COPD exacerbation Current Visit: Yes Status: Acute Assessment and Plan: Patient has been showing increased work of breathing, exertional dyspnea, and physical examination over past two days has revealed diffuse wheezing and RLL rales. Since rt hip IM nailing, patient oxygen requirement is now at 3L compared with 2 L at arrival. He is easily winded, walking short distance from restroom to bed. -CXR today showed trace pleural effusion and COPD. -Procalcitonin level was normal at 0.03. -Continue breathing treatments. -Currently weaning oxygen -Changing prednisone 40 mg to solumedrol IV 40 mg q12h -If not improved after increase in steroids, will consider ordering CTA chest (3) Urinary retention Current Visit: Yes Status: Acute Assessment and Plan: Today, he has been showing postvoid urine volumes of approximately 200 mL. This is continuing from yesterday, when he had a postvoid volume of 240 mL. -Continue Flomax -Continue monitoring urine output. Urine output yesterday was 775 mL (4) Anemia Current Visit: Yes Status: Acute Assessment and Plan: Hemoglobin and hematocrit have been low on this stay. Patient received 1 U pRBCs on 08/15, due to hemoglobin of 7.7 in context of COPD. -H&H is still low today at 8.3 and 25.0, respectively. -Continuing to monitor. (5) RAGHAVENDRA (acute kidney injury) Current Visit: Yes Status: Acute Assessment and Plan: Initial creatinine previously was elevated at 1.31. This normalized to 0.76. -Today, creatinine level was normal at 0.65. -Patient is no longer on IVF. (6) Elevated blood pressure reading with diagnosis of hypertension Current Visit: Yes Status: Acute Assessment and Plan: Blood pressure is still elevated but has been remaining in 150s-160s SBP. -Continue hydralazine 20 q6h PRN for SBP > 160 -Will continue to monitor and treat as needed. (7) Hypocalcemia Current Visit: Yes Status: Acute Assessment and Plan: Calcium level today was 8.4, but albumin was not ordered to calculate corrected value. -BMP and albumin ordered for tomorrow, but calcium level appears to be improving. DVT Prophylaxis: Currently on subcutaneous heparin - Time Spent with Patient Total time spent is greater than 50% in coordination of care (as documented) at patient's floor/unit and/or counseling patient: Internal Medicine: Result - Labs CBC & Chem 7: 08/17/19 09:48 08/17/19 04:35 Labs: Short CBC 08/17/19 08/17/19 Range/Units 04:35 09:48 WBC 7.4 (4.3-11.1) K/mcL Hgb 8.3 L 8.2 L (12.9-16.9) g/dL Hct 25.0 L 24.2 L (37.5-50.1) % Plt Count 300 (140-400) K/mcL Neutrophils # 5.7 (1.6-8.9) K/mcL BMP 08/17/19 04:35 Sodium 132 L Potassium 4.0 Chloride 95 L Carbon Dioxide 32 H BUN 11 Creatinine 0.65 L Glucose 129 H Calcium 8.4 L - ABG Interpretation ABG results: PT/INR, D-dimer PT 13.7 Seconds (9.4-12.1) H 08/13/19 09:38 - Impressions Impressions Chest X-Ray 08/17/19 11:38 IMPRESSION: 1. Trace right pleural effusion, otherwise no acute cardiopulmonary disease. 2. COPD. D/ / 08/17/2019 11:42:25 Christa Ferrera MD / [facility] Interpreting Provider: Christa Ferrera MD Hip X-Ray 08/17/19 11:56 IMPRESSION: Status post ORIF of right intratrochanteric fracture, with near anatomic alignment, without hardware complication. No acute fracture or dislocation of the pelvis. D/ / Galileo Browne MD / Galileo Browne MD Interpreting Provider: Galileo Browne MD Consult Discharge Plan - Plan [facility]errals: [facility] [Primary Care Provider] - <Carmelina Dowell - Last Filed: 08/17/19 18:27> Hospitalist Progress Note - Encounter Date of Encounter: 08/17/19 - Exam Vitals: Temp Pulse Resp BP Pulse Ox 98.2 F 76 20 161/82 99 08/17/19 15:47 08/17/19 15:47 08/17/19 15:47 08/17/19 15:47 08/17/19 15:47 - Assessment and Plan (1) Closed right hip fracture Current Visit: Yes Status: Acute (2) Leukocytosis Current Visit: Yes Status: Acute (3) RAGHAVENDRA (acute kidney injury) Current Visit: Yes Status: Acute (4) Anemia Current Visit: Yes Status: Acute (5) DVT prophylaxis Current Visit: Yes Status: Acute - Time Spent with Patient Total time spent is greater than 50% in coordination of care (as documented) at patient's floor/unit and/or counseling patient: Internal Medicine: Result - Labs CBC & Chem 7: 08/17/19 09:48 08/17/19 04:35 Labs: Short CBC 08/17/19 08/17/19 Range/Units 04:35 09:48 WBC 7.4 (4.3-11.1) K/mcL Hgb 8.3 L 8.2 L (12.9-16.9) g/dL Hct 25.0 L 24.2 L (37.5-50.1) % Plt Count 300 (140-400) K/mcL Neutrophils # 5.7 (1.6-8.9) K/mcL BMP 08/17/19 04:35 Sodium 132 L Potassium 4.0 Chloride 95 L Carbon Dioxide 32 H BUN 11 Creatinine 0.65 L Glucose 129 H Calcium 8.4 L - ABG Interpretation ABG results: PT/INR, D-dimer PT 13.7 Seconds (9.4-12.1) H 08/13/19 09:38 - Impressions Impressions Chest X-Ray 08/17/19 11:38 IMPRESSION: 1. Trace right pleural effusion, otherwise no acute cardiopulmonary disease. 2. COPD. D/ / 08/17/2019 11:42:25 Christa Ferrera MD / tod Interpreting Provider: Christa Ferrera MD Hip X-Ray 08/17/19 11:56 IMPRESSION: Status post ORIF of right intratrochanteric fracture, with near anatomic alignment, without hardware complication. No acute fracture or dislocation of the pelvis. D/ / Galileo Browne MD / Galileo Browne MD Interpreting Provider: Galileo Browne MD - Attending Attestation I saw evaluated and examined this patient and reviewed objective data including labs and my medical decision-making was reviewed with the Resident Physician. I agree with the documented findings, disposition and treatment plan as described except to any changes set forth below. We independently had [id number] contact with the patient. <Nataly Briggs - Last Filed: 08/17/19 18:19> (1) Closed right hip fracture Qualifiers: Encounter type: subsequent encounter Fracture healing: with routine healing Qualified Code(s): S72.001D - Fracture of unspecified part of neck of right femur, subsequent encounter for closed fracture with routine healing (4) Anemia Qualifiers: Anemia type: unspecified type Qualified Code(s): D64.9 - Anemia, unspecified <Carmelina Dowell - Last Filed: 08/17/19 18:27> (1) Closed right hip fracture Qualifiers: Encounter type: subsequent encounter Fracture healing: with routine healing Qualified Code(s): S72.001D - Fracture of unspecified part of neck of right femur, subsequent encounter for closed fracture with routine healing (2) Leukocytosis Qualifiers: Leukocytosis type: unspecified Qualified Code(s): D72.829 - Elevated white blood cell count, unspecified (4) Anemia Qualifiers: Anemia type: unspecified type Qualified Code(s): D64.9 - Anemia, unspecified
[2019-08-17] MEDS ORDERED: Isovue-370 500 ML BOTTLE IVP ONE (18:02)
[2019-08-17] MEDS: MethylPREDNISolone 40 MG/ML VIAL IVP SCH (18:39)
[2019-08-17] MEDS: Melatonin 3 MG TABLET PO SCH (20:17)
[2019-08-18] MEDS: Ipratropium/Albuterol Neb 3 ML IH SCH ×6 (03:27→23:22)
[2019-08-18] MEDS: MethylPREDNISolone 40 MG/ML VIAL IVP SCH (05:51)
--- NOTE | 2019-08-18 08:11 | Orthopedics Progress Note ---
Date of Encounter: 08/18/19 Time of Encounter: 08:10 Subjective Principal diagnosis: s/p right hip IM nail Interval history: No overnight issues. Pain is controlled. No nausea/vomiting. No CP/SOB. Vitals reviewed Extremity exam: Dressing clean, dry and intact No erythema or drainage Distally neurovascularly intact to motor/sensory exam No calf pain or tenderness s/p right hip IM nail Continue current management PO pain and nausea control Up with PT Discharge planning Objective Vital signs: Vital Signs Temp Pulse Resp BP Pulse Ox 08/18/19 07:52 98.0 F 73 18 171/86 97 08/18/19 03:59 97.8 F 90 18 144/76 96 08/18/19 03:27 17 98 08/17/19 23:10 16 99 08/17/19 22:56 97.6 F 85 18 155/78 95 08/17/19 20:28 98 08/17/19 19:41 17 96 08/17/19 19:36 174/86 08/17/19 19:24 99.5 F 83 20 170/88 98 08/17/19 15:47 98.2 F 76 20 161/82 99 08/17/19 15:36 20 96 08/17/19 11:16 98.2 F 91 20 150/78 98 08/17/19 11:07 18 95 Intake and Output 08/17/19 08/18/19 08/18/19 23:59 07:59 15:59 Intake Total 120 / 800 720 / 720 Output Total 625 / 1775 300 / 300 Balance -505 / -975 420 / 420 Intake: Oral 120 / 800 720 / 720 Output: Urine 625 / 1775 300 / 300 Other: Meal Dinner Percent of Meal Consumed 100% # Voids 1 Weight 54.2 kg Patient Weight 08/18/19 23:59 Weight 54.2 kg - Labs CBC & BMP: 08/17/19 09:48 08/17/19 04:35 Labs: Abnormal lab results WBC 12.5 K/mcL (4.3-11.1) H 08/13/19 09:38 RBC 2.70 M/mcL (4.19-5.50) L 08/17/19 04:35 Hgb 8.2 g/dL (12.9-16.9) L 08/17/19 09:48 Hct 24.2 % (37.5-50.1) L 08/17/19 09:48 Neutrophils # 10.9 K/mcL (1.6-8.9) H 08/13/19 09:38 Lymphocytes # 0.4 K/mcL (0.6-4.6) L 08/15/19 04:00 PT 13.7 Seconds (9.4-12.1) H 08/13/19 09:38 Sodium 132 mEq/L (136-145) L 08/17/19 04:35 Chloride 95 mEq/L (98-107) L 08/17/19 04:35 Carbon Dioxide 32 mEq/L (23-29) H 08/17/19 04:35 BUN 26 mg/dL (8-23) H 08/13/19 18:31 Creatinine 0.65 mg/dL (0.70-1.30) L 08/17/19 04:35 Est GFR ( Amer) 49 (> 60) L 08/13/19 18:31 Est GFR (Non-Af Amer) 54 (> 60) L 08/14/19 05:51 Glucose 129 mg/dL (70-105) H 08/17/19 04:35 POC Glucose 114 mg/dL (70-99) H 08/14/19 11:24 Calculated Osmolality 275 (280-300) L 08/17/19 04:35 Calcium 8.4 mg/dL (8.6-10.3) L 08/17/19 04:35 Iron 28 mcg/dL (65-175) L 08/14/19 05:51 % Saturation 15 % (20-55) L 08/14/19 05:51 Transferrin 131 mg/dL (203-362) L 08/14/19 05:51 Ferritin 399 ng/mL (20-250) H 08/14/19 05:51 Serum Total Protein 5.8 g/dL (6.4-8.9) L 08/15/19 04:00 Albumin 3.0 g/dL (3.5-5.7) L 08/16/19 05:05 Vitamin B12 1195 pg/mL (250-1100) H 08/14/19 05:51 Folate 19.7 ng/mL (3.0-16.0) H 08/14/19 05:51 Urine Ketones Trace mg/dL (Negative) H 08/13/19 11:05 Crossmatch See Detail 08/15/19 09:53 Consult Discharge Plan - Plan [facility]errals: [facility] [Primary Care Provider] -
[2019-08-18 09:45] LABS: Basophils % 0.1 %; Hemoglobin 8.6 g/dL (12.9-16.9); Immature Granulocytes % 2.3 % (0-4); Lymphocytes # 0.5 K/mcL (0.6-4.6); Lymphocytes % 6.1 %; Mean Corpuscular HGB Conc 34.4 g/dL (31.6-35.5); Mean Corpuscular Volume 92.9 fL (83.0-100.0); Mean Platelet Volume 9.2 fL (9.4-12.4); Monocytes # 0.3 K/mcL (0.0-1.3); Monocytes % 3.8 %; Neutrophils # 7.6 K/mcL (1.6-8.9); Platelet Count 361 K/mcL (140-400); Red Blood Count 2.69 M/mcL (4.19-5.50); Red Cell Distribution Width 13.4 % (11.5-14.5); Segmented Neutrophils % 87.7 %; White Blood Count 8.6 K/mcL (4.3-11.1)
[2019-08-18 09:59] LABS: Albumin 3.5 g/dL (3.5-5.7); BUN/Creatinine Ratio 20 (6-26); Blood Urea Nitrogen 16 mg/dL (8-23); Calcium 8.5 mg/dL (8.6-10.3); Carbon Dioxide 30 mEq/L (23-29); Chloride 94 mEq/L (98-107); Glucose 162 mg/dL (70-105); Osmolality,Calculated 279 (280-300); Potassium 4.1 mEq/L (3.5-5.1); Sodium 132 mEq/L (136-145); eGFR For African Americans > 60 (> 60); eGFR For Non-African Americans > 60 (> 60)
[2019-08-18] MEDS: Cholecalciferol (D-3) 1,000 UNIT (25MCG) TABLET PO SCH (10:12)
[2019-08-18] MEDS: Thiamine (B-1) 100 MG TABLET PO SCH (10:12)
[2019-08-18] MEDS: Multivit/Ca/Min/Fe/FA 1 TAB TABLET PO SCH (10:13)
--- NOTE | 2019-08-18 12:22 | Internal Med Progress Note ---
Hospitalist Progress Note - Encounter Date of Encounter: 08/18/19 Time of Encounter: 12:33 - Subjective Interval History: No acute events. Right hip swelling improved. - Exam Vitals: Temp Pulse Resp BP Pulse Ox 98.0 F 73 18 155/79 97 08/18/19 07:52 08/18/19 07:52 08/18/19 11:04 08/18/19 10:06 08/18/19 11:04 Exam: GENERAL: Thin-appearing. Awake, conversant. Became very short of breath after walking from restroom to bed. EYES: Anicteric, clear sclerae. Pupils equal and reactive to light bilaterally. HENT: Atraumatic, normocephalic. Moist mucosa. Poor dentition. NECK: Supple, normal carotid pulses. CV: Regular rate and rhythm. Normal S1 and S2. No murmurs, clicks, or gallops. RESPIRATORY/CHEST: Nontender to palpation. Patient showed signs of respiratory distress after walking short distance. Mild diffuse wheezes. Rales heard right lower lung field. No rhonchi. ABDOMEN: Soft, nontender, nondistended. Normal bowel sounds heard EXTREMITIES: Physical dressing was present on the right hip. No edema. Peripheral pulses 2+/4. Capillary refill<2 sec SKIN: Bruises present. Warm, dry. - Assessment and Plan (1) Closed right hip fracture Current Visit: Yes Status: Acute Assessment and Plan: Patient presented for comminuted right femoral intertrochanteric neck fracture. He underwent IM hip nailing on 08/14 with good result. Of note, CXR incidentally found subacute healing left ribs 8 and 9 fractures of which patient was unaware. Post-operatively, patient was put on incentive spirometry and continued on DVT prophylaxis. -Rt Hip XR today showed near anatomic alignment of right intertrochanteric fracture with no hardware complication. There was no acute fracture or dislocation of pelvis. -Patient is walking with walker -Pain management currently with oxycodone. -Currently planning for patient to remain inpatient over weekend; will likely discharge to [place] on Tuesday. -DVT prophylaxis is lovenox for 2 weeks followed by aspirin 325 mg/day for 4 weeks. (2) RAGHAVENDRA (acute kidney injury) Current Visit: Yes Status: Acute Assessment and Plan: Unknown baseline. Creatinine of 1.95. Now resolved (3) Anemia Current Visit: Yes Status: Acute Assessment and Plan: Patient with anemia of 10.3, but baseline on review of prior seems to be 8.0-9.0 Unknown baseline. Patient unaware of his anemia. We will obtain iron panel and ferritin, and B12 and folate DVT prophylaxis dose Lovenox on hold right now for concern for bleed Will need outpatient colonoscopy workup. (4) DVT prophylaxis Current Visit: Yes Status: Acute Assessment and Plan: Ideally would be on heparin or Lovenox but there is concern with anemia for bleed. Had a bloody nose yesterday that has resolved. H&H and vitals stable. Continue EPCD, resume Lovenox when able. (5) COPD exacerbation Current Visit: Yes Status: Acute Assessment and Plan: Continue steroids and duo nebs. Wean O2 as tolerated. (6) Urinary retention Current Visit: Yes Status: Acute Assessment and Plan: Improved, continue Flomax - Time Spent with Patient Total time spent is greater than 50% in coordination of care (as documented) at patient's floor/unit and/or counseling patient: Internal Medicine: Result - Labs CBC & Chem 7: 08/18/19 09:13 08/18/19 09:13 Labs: Short CBC 08/18/19 Range/Units 09:13 WBC 8.6 (4.3-11.1) K/mcL Hgb 8.6 L (12.9-16.9) g/dL Hct 25.0 L (37.5-50.1) % Plt Count 361 (140-400) K/mcL Neutrophils # 7.6 (1.6-8.9) K/mcL BMP 08/18/19 09:13 Sodium 132 L Potassium 4.1 Chloride 94 L Carbon Dioxide 30 H BUN 16 Creatinine 0.80 Glucose 162 H Calcium 8.5 L Liver Function 08/18/19 Range/Units 09:13 Albumin 3.5 (3.5-5.7) g/dL - ABG Interpretation ABG results: PT/INR, D-dimer PT 13.7 Seconds (9.4-12.1) H 08/13/19 09:38 - Impressions Impressions Chest X-Ray 08/17/19 11:38 IMPRESSION: 1. Trace right pleural effusion, otherwise no acute cardiopulmonary disease. 2. COPD. D/ / 08/17/2019 11:42:25 Christa Ferrera MD / tod Interpreting Provider: Christa Ferrera MD Chest CTA 08/17/19 19:59 IMPRESSION: 1. Negative for acute pulmonary embolism 2. Diffuse pulmonary emphysema 3. Small bilateral pleural effusions right larger than left with atelectatic changes at the right lung base D/ / Ezequiel Ballesteros MD / Ezequiel Ballesteros MD Interpreting Provider: Ezequiel Ballesteros MD Consult Discharge Plan - Plan [facility]errals: [facility] [Primary Care Provider] - __ (1) Closed right hip fracture Qualifiers: Encounter type: subsequent encounter Fracture healing: with routine healing Qualified Code(s): S72.001D - Fracture of unspecified part of neck of right femur, subsequent encounter for closed fracture with routine healing (3) Anemia Qualifiers: Anemia type: unspecified type Qualified Code(s): D64.9 - Anemia, unspecified
[2019-08-18] MEDS: Melatonin 3 MG TABLET PO SCH (23:11)
[2019-08-19 02:57] LABS: Basophils % 0.3 %; Eosinophils # 0.1 K/mcL (0.0-0.6); Eosinophils % 0.5 %; Hematocrit 25.9 % (37.5-50.1); Hemoglobin 8.5 g/dL (12.9-16.9); Lymphocytes # 2.2 K/mcL (0.6-4.6); Lymphocytes % 18.1 %; Mean Corpuscular HGB Conc 32.8 g/dL (31.6-35.5); Mean Corpuscular Hemoglobin 30.8 pg (28.0-33.3); Mean Corpuscular Volume 93.8 fL (83.0-100.0); Mean Platelet Volume 9.3 fL (9.4-12.4); Monocytes # 1.5 K/mcL (0.0-1.3); Monocytes % 12.7 %; Neutrophils # 7.8 K/mcL (1.6-8.9); Platelet Count 405 K/mcL (140-400); Red Blood Count 2.76 M/mcL (4.19-5.50); Red Cell Distribution Width 13.8 % (11.5-14.5); Segmented Neutrophils % 65.4 %
[2019-08-19 03:16] LABS: BUN/Creatinine Ratio 29 (6-26); Blood Urea Nitrogen 20 mg/dL (8-23); Calcium 8.2 mg/dL (8.6-10.3); Carbon Dioxide 30 mEq/L (23-29); Chloride 93 mEq/L (98-107); Glucose 93 mg/dL (70-105); Osmolality,Calculated 276 (280-300); Potassium 4.1 mEq/L (3.5-5.1); Sodium 132 mEq/L (136-145); eGFR For African Americans > 60 (> 60); eGFR For Non-African Americans > 60 (> 60)
[2019-08-19] MEDS: Ipratropium/Albuterol Neb 3 ML IH SCH ×5 (04:05→19:41)
[2019-08-19] MEDS: Thiamine (B-1) 100 MG TABLET PO SCH (10:09)
[2019-08-19] MEDS: Cholecalciferol (D-3) 1,000 UNIT (25MCG) TABLET PO SCH (10:09)
[2019-08-19] MEDS: Multivit/Ca/Min/Fe/FA 1 TAB TABLET PO SCH (10:10)
[2019-08-19] MEDS: predniSONE 20 MG TABLET PO SCH (10:10)
--- NOTE | 2019-08-19 13:16 | Internal Med Progress Note ---
Hospitalist Progress Note - Encounter Date of Encounter: 08/19/19 Time of Encounter: 13:14 - Subjective Interval History: No acute events. Slept well. Denies chest pain. Right leg pain stable/better. - Exam Vitals: Temp Pulse Resp BP Pulse Ox 99.1 F 94 20 156/86 97 08/19/19 12:44 08/19/19 12:44 08/19/19 12:44 08/19/19 12:44 08/19/19 12:44 Exam: GENERAL: NAD EYES: Anicteric, clear sclerae. Pupils equal and reactive to light bilaterally. HENT: Atraumatic, normocephalic. Moist mucosa. Poor dentition. NECK: Supple, normal carotid pulses. CV: Regular rate and rhythm. Normal S1 and S2. No murmurs, clicks, or gallops. RESPIRATORY/CHEST: diffuse wheezing, poor breath sounds in lung peña. ABDOMEN: Soft, nontender, nondistended. Normal bowel sounds heard EXTREMITIES: Physical dressing was present on the right hip. No edema. Peripheral pulses 2+/4. Capillary refill<2 sec SKIN: Bruises present. Warm, dry. - Assessment and Plan (1) Closed right hip fracture Current Visit: Yes Status: Acute Assessment and Plan: Patient presented for comminuted right femoral intertrochanteric neck fracture. He underwent IM hip nailing on 08/14 with good result. Of note, CXR incidentally found subacute healing left ribs 8 and 9 fractures of which patient was unaware. Post-operatively, patient was put on incentive spirometry and continued on DVT prophylaxis. -Rt Hip XR today showed near anatomic alignment of right intertrochanteric fract ure with no hardware complication. There was no acute fracture or dislocation of pelvis. -Pain management currently with oxycodone. -Currently planning for patient to remain inpatient over weekend; will likely discharge to [place] plan for tomorrow -DVT prophylaxis is lovenox for 2 weeks followed by aspirin 325 mg/day for 4 weeks. Dispo: pending placement. (2) RAGHAVENDRA (acute kidney injury) Current Visit: Yes Status: Acute (3) Anemia Current Visit: Yes Status: Acute (4) DVT prophylaxis Current Visit: Yes Status: Acute (5) COPD exacerbation Current Visit: Yes Status: Acute (6) Urinary retention Current Visit: Yes Status: Acute - Time Spent with Patient Total time spent is greater than 50% in coordination of care (as documented) at patient's floor/unit and/or counseling patient: Internal Medicine: Result - Labs CBC & Chem 7: 08/19/19 01:46 08/19/19 01:46 Labs: Short CBC 08/19/19 Range/Units 01:46 WBC 12.0 H (4.3-11.1) K/mcL Hgb 8.5 L (12.9-16.9) g/dL Hct 25.9 L (37.5-50.1) % Plt Count 405 H (140-400) K/mcL Neutrophils # 7.8 (1.6-8.9) K/mcL BMP 08/19/19 01:46 Sodium 132 L Potassium 4.1 Chloride 93 L Carbon Dioxide 30 H BUN 20 Creatinine 0.70 Glucose 93 Calcium 8.2 L - ABG Interpretation ABG results: PT/INR, D-dimer PT 13.7 Seconds (9.4-12.1) H 08/13/19 09:38 Consult Discharge Plan - Plan Referrals: [facility] [Primary Care Provider] - (1) Closed right hip fracture Qualifiers: Encounter type: subsequent encounter Fracture healing: with routine healing Qualified Code(s): S72.001D - Fracture of unspecified part of neck of right femur, subsequent encounter for closed fracture with routine healing (3) Anemia Qualifiers: Anemia type: unspecified type Qualified Code(s): D64.9 - Anemia, unspecified
[2019-08-19] MEDS: Melatonin 3 MG TABLET PO SCH (20:35)
[2019-08-20] MEDS: Ipratropium/Albuterol Neb 3 ML IH SCH ×5 (00:23→15:49)
[2019-08-20 07:03] LABS: Basophils % 0.3 %; Eosinophils % 0.3 %; Hematocrit 28.3 % (37.5-50.1); Hemoglobin 9.5 g/dL (12.9-16.9); Immature Granulocytes % 3.8 % (0-4); Lymphocytes # 1.4 K/mcL (0.6-4.6); Lymphocytes % 13.8 %; Mean Corpuscular HGB Conc 33.6 g/dL (31.6-35.5); Mean Corpuscular Hemoglobin 31.1 pg (28.0-33.3); Mean Corpuscular Volume 92.8 fL (83.0-100.0); Monocytes # 1.2 K/mcL (0.0-1.3); Monocytes % 11.7 %; Neutrophils # 7.3 K/mcL (1.6-8.9); Platelet Count 425 K/mcL (140-400); Red Blood Count 3.05 M/mcL (4.19-5.50); Red Cell Distribution Width 13.6 % (11.5-14.5); Segmented Neutrophils % 70.1 %; White Blood Count 10.4 K/mcL (4.3-11.1)
[2019-08-20 07:18] LABS: BUN/Creatinine Ratio 29 (6-26); Blood Urea Nitrogen 20 mg/dL (8-23); Calcium 8.6 mg/dL (8.6-10.3); Carbon Dioxide 34 mEq/L (23-29); Chloride 95 mEq/L (98-107); Glucose 109 mg/dL (70-105); Osmolality,Calculated 277 (280-300); Potassium 4.3 mEq/L (3.5-5.1); Sodium 132 mEq/L (136-145); eGFR For African Americans > 60 (> 60); eGFR For Non-African Americans > 60 (> 60)
[2019-08-20] MEDS: Cholecalciferol (D-3) 1,000 UNIT (25MCG) TABLET PO SCH (09:57)
[2019-08-20] MEDS: Thiamine (B-1) 100 MG TABLET PO SCH (09:57)
[2019-08-20] MEDS: predniSONE 20 MG TABLET PO SCH (09:57)
[2019-08-20] MEDS: Multivit/Ca/Min/Fe/FA 1 TAB TABLET PO SCH (09:57)
--- NOTE | 2019-08-20 10:50 | Internal Med Progress Note ---
Hospitalist Progress Note - Encounter Date of Encounter: 08/20/19 Time of Encounter: 10:17 - Subjective Interval History: Today, patient still endorses exertional dyspnea when walking from restroom. He reports he has always had some of this, though it is currently worse than his baseline. He thinks he needs to plan ahead for his walking a little better, so that he can minimize his dyspnea. He believes the pain from his surgical site is a little better than yesterday. - Exam Vitals: Temp Pulse Resp BP Pulse Ox 97.7 F 90 18 164/89 100 08/20/19 06:38 08/20/19 06:38 08/20/19 08:04 08/20/19 06:38 08/20/19 08:04 - Assessment and Plan (1) Closed right hip fracture Current Visit: Yes Status: Acute (2) COPD exacerbation Current Visit: Yes Status: Acute (3) Urinary retention Current Visit: Yes Status: Acute (4) Anemia Current Visit: Yes Status: Acute (5) RAGHAVENDRA (acute kidney injury) Current Visit: Yes Status: Acute (6) Elevated blood pressure reading with diagnosis of hypertension Current Visit: Yes Status: Acute (7) Hypocalcemia Current Visit: Yes Status: Acute - Time Spent with Patient Total time spent is greater than 50% in coordination of care (as documented) at patient's floor/unit and/or counseling patient: Internal Medicine: Result - Labs CBC & Chem 7: 08/20/19 06:44 08/20/19 06:44 Labs: Short CBC 08/20/19 Range/Units 06:44 WBC 10.4 (4.3-11.1) K/mcL Hgb 9.5 L (12.9-16.9) g/dL Hct 28.3 L (37.5-50.1) % Plt Count 425 H (140-400) K/mcL Neutrophils # 7.3 (1.6-8.9) K/mcL BMP 08/20/19 06:44 Sodium 132 L Potassium 4.3 Chloride 95 L Carbon Dioxide 34 H BUN 20 Creatinine 0.70 Glucose 109 H Calcium 8.6 - ABG Interpretation ABG results: PT/INR, D-dimer PT 13.7 Seconds (9.4-12.1) H 08/13/19 09:38 Consult Discharge Plan - Plan Referrals: [facility] [Primary Care Provider] - (1) Closed right hip fracture Qualifiers: Encounter type: subsequent encounter Fracture healing: with routine healing Qualified Code(s): S72.001D - Fracture of unspecified part of neck of right femur, subsequent encounter for closed fracture with routine healing (4) Anemia Qualifiers: Anemia type: unspecified type Qualified Code(s): D64.9 - Anemia, unspecified
[2019-08-20 10:51] VITALS: BP 148/88
--- NOTE | 2019-08-20 13:49 | Orthopedics Progress Note ---
Date of Encounter: 08/20/19 Time of Encounter: 11:30 - Assessment and Plan (1) Closed right hip fracture Current Visit: Yes Status: Acute Qualifiers: Encounter type: subsequent encounter Fracture healing: with routine healing Qualified Code(s): S72.001D - Fracture of unspecified part of neck of right femur, subsequent encounter for closed fracture with routine healing Subjective Principal diagnosis: s/p right hip IM nail Interval history: s/p right hip IM nail to right femoral intertrochanteric neck fracture on 08/14/[address] Eaton Patient seen at bedside. Doing well today with no concerns and no noted confusion today. A&Ox3 dressings have small amount drainage to posterior end of dressing, appears older blood. Change if becomes saturated. No calf tenderness, erythema, or warmth. Neurovascularly intact b/l LE. Labwork, vitals, and medications reviewed. H/H 9.5/28.3 improving Pain control: Adequate Participating in therapy. All questions and concerns addressed. Educated on use of incentive spirometer, ambulation, and hydration. Patient educated on post-operative restrictions and care. Addressed: Weightbearing as tolerated. Would recommended protected weightbearing. Patient course and disposition discussed with Dr. Eaton D/C plan:. Pain control per primary team. Will likely require ECF placement for rehab as he lives alone - therapy presently recommending home health. Social work involved and working on patients options. DVT prophylaxis postop: lovenox has been on hold due to anemia. recommend aspirin 81mg daily for 6 weeks upon discharge Keep outpatient follow up as scheduled. Please reach out with any questions or concerns regarding patient's orthopedic health. Will follow up in [facility] office at [phone] for reevaluation. Objective Vital signs: Vital Signs Temp Pulse Resp BP Pulse Ox 08/20/19 11:01 20 92 08/20/19 10:51 97.9 F 105 20 148/88 94 08/20/19 08:04 18 100 08/20/19 06:38 97.7 F 90 20 164/89 99 08/20/19 04:31 16 98 08/20/19 00:24 18 98 08/20/19 00:15 97.8 F 67 20 158/90 99 08/19/19 19:52 98.9 F 82 20 144/76 97 08/19/19 19:41 18 98 08/19/19 16:12 98.7 F 88 20 145/79 97 08/19/19 15:55 19 96 Intake and Output 08/19/19 08/20/19 08/20/19 23:59 07:59 15:59 Intake Total 150 / 390 240 / 390 Output Total 450 / 1000 650 / 650 Balance -450 / -750 -500 / -260 240 / -260 Intake: Oral 150 / 390 240 / 390 Output: Urine 450 / 1000 650 / 650 Other: Meal Breakfast Percent of Meal Consumed 100% # Voids 1 1 - Labs CBC & BMP: 08/20/19 06:44 08/20/19 06:44 Labs: Abnormal lab results WBC 12.0 K/mcL (4.3-11.1) H 08/19/19 01:46 RBC 3.05 M/mcL (4.19-5.50) L 08/20/19 06:44 Hgb 9.5 g/dL (12.9-16.9) L 08/20/19 06:44 Hct 28.3 % (37.5-50.1) L 08/20/19 06:44 Plt Count 425 K/mcL (140-400) H 08/20/19 06:44 MPV 9.0 fL (9.4-12.4) L 08/20/19 06:44 Neutrophils # 10.9 K/mcL (1.6-8.9) H 08/13/19 09:38 Lymphocytes # 0.5 K/mcL (0.6-4.6) L 08/18/19 09:13 Monocytes # 1.5 K/mcL (0.0-1.3) H 08/19/19 01:46 PT 13.7 Seconds (9.4-12.1) H 08/13/19 09:38 Sodium 132 mEq/L (136-145) L 08/20/19 06:44 Chloride 95 mEq/L (98-107) L 08/20/19 06:44 Carbon Dioxide 34 mEq/L (23-29) H 08/20/19 06:44 BUN 26 mg/dL (8-23) H 08/13/19 18:31 Creatinine 0.65 mg/dL (0.70-1.30) L 08/17/19 04:35 Est GFR ( Amer) 49 (> 60) L 08/13/19 18:31 Est GFR (Non-Af Amer) 54 (> 60) L 08/14/19 05:51 BUN/Creatinine Ratio 29 (6-26) H 08/20/19 06:44 Glucose 109 mg/dL (70-105) H 08/20/19 06:44 POC Glucose 114 mg/dL (70-99) H 08/14/19 11:24 Calculated Osmolality 277 (280-300) L 08/20/19 06:44 Calcium 8.2 mg/dL (8.6-10.3) L 08/19/19 01:46 Iron 28 mcg/dL (65-175) L 08/14/19 05:51 % Saturation 15 % (20-55) L 08/14/19 05:51 Transferrin 131 mg/dL (203-362) L 08/14/19 05:51 Ferritin 399 ng/mL (20-250) H 08/14/19 05:51 Serum Total Protein 5.8 g/dL (6.4-8.9) L 08/15/19 04:00 Albumin 3.0 g/dL (3.5-5.7) L 08/16/19 05:05 Vitamin B12 1195 pg/mL (250-1100) H 08/14/19 05:51 Folate 19.7 ng/mL (3.0-16.0) H 08/14/19 05:51 Urine Ketones Trace mg/dL (Negative) H 08/13/19 11:05 Crossmatch See Detail 08/15/19 09:53 Consult Discharge Plan - Plan [facility]errals: [facility] [Primary Care Provider] -
--- NOTE | 2019-08-20 15:23 | Discharge Summary ---
Date of Encounter: 08/20/19 Time of Encounter: 15:21 - Discharge Diagnosis (1) Closed right hip fracture Priority: Primary Status: Acute Qualifiers: Encounter type: subsequent encounter Fracture healing: with routine healing Qualified Code(s): S72.001D - Fracture of unspecified part of neck of right femur, subsequent encounter for closed fracture with routine healing (2) COPD exacerbation Priority: Secondary Status: Acute (3) Urinary retention Priority: Secondary Status: Acute (4) Anemia Priority: Secondary Status: Acute Qualifiers: Anemia type: unspecified type Qualified Code(s): D64.9 - Anemia, unspecified (5) RAGHAVENDRA (acute kidney injury) Priority: Secondary Status: Acute (6) Elevated blood pressure reading with diagnosis of hypertension Priority: Secondary Status: Acute (7) Hypocalcemia Priority: Secondary Status: Acute Hospital course: Mr. Petty is a 68 year old male Discharge discussed with: patient, social work - Time Spent with Patient Total time spent providing and/or coordinating discharge services: Time spent: Less than 30 minutes - Discharge Medications Prescriptions: New RX: Docusate [Colace] 100 mg PO BID 30 Days #30 capsule RX: Tamsulosin [Flomax] 0.4 mg PO DAILY 30 Days #30 capsule RX: OxyCODONE Immed Rel [Roxicodone 5 MG] 5 mg PO Q6HR PRN 5 Days #20 tablet PRN Reason: Severe Pain Continued RX: Multivitamin [Daily Multiple Vitamin] 1 tab PO DAILY RX: Melatonin [Melatin] 9 mg PO HS RX: Ibuprofen [Ibu] 400 mg PO TID PRN PRN Reason: Pain RX: hydrOXYzine HCl [Hydroxyzine HCl] 25 mg PO TID PRN PRN Reason: ANXIETY AND SLEEP RX: Escitalopram [Lexapro] 20 mg PO QAM RX: Cyclobenzaprine [Flexeril] 10 mg PO QAM RX: Albuterol Sulfate [Proair Hfa] 2 puff PO Q4H PRN PRN Reason: Shortness Of Breath RX: Naproxen [Naprosyn] 500 mg PO BID PRN PRN Reason: Pain Home Medications: RX: Albuterol Sulfate [Proair Hfa] 2 puff PO Q4H PRN 08/13/19 [History] RX: Cyclobenzaprine [Flexeril] 10 mg PO QAM 08/13/19 [History] RX: Escitalopram [Lexapro] 20 mg PO QAM 08/13/19 [History] RX: Ibuprofen [Ibu] 400 mg PO TID PRN 08/13/19 [History] RX: Melatonin [Melatin] 9 mg PO HS 08/13/19 [History] RX: Multivitamin [Daily Multiple Vitamin] 1 tab PO DAILY 08/13/19 [History] RX: Naproxen [Naprosyn] 500 mg PO BID PRN 08/13/19 [History] RX: hydrOXYzine HCl [Hydroxyzine HCl] 25 mg PO TID PRN 08/13/19 [History] RX: Docusate [Colace] 100 mg PO BID 30 Days #30 capsule 08/20/19 [Rx] RX: OxyCODONE Immed Rel [Roxicodone 5 MG] 5 mg PO Q6HR PRN 5 Days #20 tablet 08/20/19 [Rx] RX: Tamsulosin [Flomax] 0.4 mg PO DAILY 30 Days #30 capsule 08/20/19 [Rx] Allergies/Adverse Reactions: Allergy/AdvReac Type Severity Reaction Status Date / Time No Known Allergies Allergy Verified 08/13/19 21:48 Date of admission: 08/14/19 15:17 [facility] physician: [facility] Consults: 08/13/19 12:00 Consult to Orthopedic Surgery [CONS] Routine Consulting Provider: Orthopedic and Sports Medicine Reason for Consult: Rt hip intertrochantric fracture Call Completed: Yes 08/13/19 13:46 Consult to Internal Communications Manager [CONS] Routine Reason for SW Consult: patient states that he has lost weight d/t not having a way to get food to home 08/14/19 19:03 Consult to Orthopedic Navigator [CONS] [CONS] Routine Consult to Physical Therapy [CONS] Routine Comment: Evaluate, develop and implement POC Reason for Consult: post hip surgery Does patient have active BEDREST order?: No Is patient medically & hemodynamically stable?: Yes Patient assessed for mobility or mobilized this visit?: No Consult to Internal Communications Manager [CONS] Routine Reason for SW Consult: post -op hip fracture RT Post Op Consult [CONS] Routine Discharging clinician: Nataly Briggs Anticipated date of discharge: 08/20/19 - Constitutional Vitals: Temp Pulse Resp BP Pulse Ox 97.9 F 105 20 148/88 92 08/20/19 10:51 08/20/19 10:51 08/20/19 11:01 08/20/19 10:51 08/20/19 11:01 Exam: GENERAL: conversant, in no acute distress EYES: anicteric, clear sclerae. Pupils equal and reactive to light bilaterally. HENT: atraumatic, normocephalic. Moist mucosa. Poor dentition. NECK: supple, normal carotid pulses. CV: regular rate and rhythm. Normal S1 and S2. No murmurs, clicks, or gallops. RESPIRATORY/CHEST: diffuse wheezing, no rhonchi or rales ABDOMEN: soft, nontender, nondistended. Normal bowel sounds heard EXTREMITIES: surgical dressing was present on the right hip. No edema. Peripheral pulses 2+/4. Capillary refill<2 sec SKIN: bruises fading. Warm, dry. - Discharge Instructions Follow Up With: [facility] [Primary Care Provider] -
--- NOTE | 2019-08-20 16:33 | Physician Discharge Referral ---
ExtendedCare Referral Info Transfer To: [place] Provider in Charge: Nataly Briggs Provider in Charge after Transfer: PCP Institutional Level of Care: Skilled - Diagnosis (1) Closed right hip fracture Priority: Primary Status: Acute (2) COPD exacerbation Priority: Secondary Status: Acute (3) Urinary retention Priority: Secondary Status: Acute (4) Anemia Priority: Secondary Status: Acute (5) RAGHAVENDRA (acute kidney injury) Priority: Secondary Status: Acute (6) Elevated blood pressure reading with diagnosis of hypertension Priority: Secondary Status: Acute (7) Hypocalcemia Priority: Secondary Status: Acute Expected Duration of Placement: one week Prognosis: Good Aware of Diagnosis: Patient Aware of Prognosis: Patient - Transfer Medications Prescriptions: Docusate [Colace] 100 mg PO BID 30 Days #30 capsule Prescription Printed Tamsulosin [Flomax] 0.4 mg PO DAILY 30 Days #30 capsule Prescription Printed OxyCODONE Immed Rel [Roxicodone 5 MG] 5 mg PO Q6HR PRN 5 Days #20 tablet PRN Reason: Severe Pain Prescription Printed Home Medications: Albuterol Sulfate [Proair Hfa] 2 puff PO Q4H PRN 08/13/19 [History] Cyclobenzaprine [Flexeril] 10 mg PO QAM 08/13/19 [History] Escitalopram [Lexapro] 20 mg PO QAM 08/13/19 [History] Ibuprofen [Ibu] 400 mg PO TID PRN 08/13/19 [History] Melatonin [Melatin] 9 mg PO HS 08/13/19 [History] Multivitamin [Daily Multiple Vitamin] 1 tab PO DAILY 08/13/19 [History] Naproxen [Naprosyn] 500 mg PO BID PRN 08/13/19 [History] hydrOXYzine HCl [Hydroxyzine HCl] 25 mg PO TID PRN 08/13/19 [History] Docusate [Colace] 100 mg PO BID 30 Days #30 capsule 08/20/19 [Rx] OxyCODONE Immed Rel [Roxicodone 5 MG] 5 mg PO Q6HR PRN 5 Days #20 tablet 08/20/19 [Rx] Tamsulosin [Flomax] 0.4 mg PO DAILY 30 Days #30 capsule 08/20/19 [Rx] Allergies/Adverse Reactions: Allergy/AdvReac Type Severity Reaction Status Date / Time No Known Allergies Allergy Verified 08/13/19 21:48 - Respiratory Orders Smoking Cessation: Smoking cessation has been advised. For more information, call the [place] Tobacco Quit Line at 3-728-EPIB-NOW. - Advance Directives Code Status: Full Code - Mobility Orders Ambulate - Rehabiliation Orders Rehab Potential: Good Rehab Orders: Evaluation for Physical Therapy, Evaluation for Occupational Therapy - Diet Orders Regular House Supplement per Dietary: Patient may benefit from dietary supplements such as Ensure due to low BMI. CERTIFICATION: I certify that the transfer of the above named patient to an Extended Care Facility is necessary for the continuing treatment of the diagnosis listed. The above information is true and accurate reflection of patient's current condition. Confidential - Redisclosure prohibited without a patient's written consent.
--- NOTE | 2019-08-20 17:08 | Discharge Summary ---
<Nataly Briggs - Last Filed: 08/20/19 16:49> Date of Encounter: 08/20/19 Time of Encounter: 15:25 - Discharge Diagnosis (1) Closed right hip fracture Priority: Primary Status: Acute Qualifiers: Encounter type: subsequent encounter Fracture healing: with routine healing Qualified Code(s): S72.001D - Fracture of unspecified part of neck of right femur, subsequent encounter for closed fracture with routine healing (2) COPD exacerbation Priority: Secondary Status: Acute (3) Urinary retention Priority: Secondary Status: Acute (4) Anemia Priority: Secondary Status: Acute Qualifiers: Anemia type: unspecified type Qualified Code(s): D64.9 - Anemia, unspecified (5) RAGHAVENDRA (acute kidney injury) Priority: Secondary Status: Acute (6) Elevated blood pressure reading with diagnosis of hypertension Priority: Secondary Status: Acute (7) Hypocalcemia Priority: Secondary Status: Acute Hospital course: Mr. Petty is a 68 year old male with past medical history COPD and hypertension who presented to this hospital for right comminuted femoral intertrochanteric neck fracture after fall. Initial chest x-ray showed subacute healing nondisplaced left posterolateral eighth and ninth rib fractures. He underwent right hip IM nailing on 08/14. Patient was on incentive spirometry q6h after surgery and on subcutaneous heparin for DVT prophylaxis. Pain was controlled with oxycodone. Throughout stay, there were signs of RAGHAVENDRA with initial creatinine of 1.70 which resolved by 08/15 and was treated with IV fluids. Patient experienced anemia with decreased hemoglobin of 7.7 on 08/15; this was treated with 1 unit packed red blood cells. Iron studies were abnormal. On 08/16, patient developed wheezing and was given DuoNeb with some improvement. He also was retaining urine that day with post void volume 240 mL; he was put on Flomax with improvement of urine output. Patient is currently walking with walker. He is on DVT prophylaxis of Lovenox for 2 weeks followed by aspirin 325 mg/day for 4 weeks. He will be discharged to [place] for a week of rehabilitation before transfer home. Discharge discussed with: patient, social work - Time Spent with Patient Total time spent providing and/or coordinating discharge services: Time spent: Less than 30 minutes - Discharge Medications Prescriptions: New Docusate [Colace] 100 mg PO BID 30 Days #30 capsule Tamsulosin [Flomax] 0.4 mg PO DAILY 30 Days #30 capsule OxyCODONE Immed Rel [Roxicodone 5 MG] 5 mg PO Q6HR PRN 5 Days #20 tablet PRN Reason: Severe Pain Continued Multivitamin [Daily Multiple Vitamin] 1 tab PO DAILY Melatonin [Melatin] 9 mg PO HS Ibuprofen [Ibu] 400 mg PO TID PRN PRN Reason: Pain hydrOXYzine HCl [Hydroxyzine HCl] 25 mg PO TID PRN PRN Reason: ANXIETY AND SLEEP Escitalopram [Lexapro] 20 mg PO QAM Cyclobenzaprine [Flexeril] 10 mg PO QAM Albuterol Sulfate [Proair Hfa] 2 puff PO Q4H PRN PRN Reason: Shortness Of Breath Naproxen [Naprosyn] 500 mg PO BID PRN PRN Reason: Pain Home Medications: Albuterol Sulfate [Proair Hfa] 2 puff PO Q4H PRN 08/13/19 [History] Cyclobenzaprine [Flexeril] 10 mg PO QAM 08/13/19 [History] Escitalopram [Lexapro] 20 mg PO QAM 08/13/19 [History] Ibuprofen [Ibu] 400 mg PO TID PRN 08/13/19 [History] Melatonin [Melatin] 9 mg PO HS 08/13/19 [History] Multivitamin [Daily Multiple Vitamin] 1 tab PO DAILY 08/13/19 [History] Naproxen [Naprosyn] 500 mg PO BID PRN 08/13/19 [History] hydrOXYzine HCl [Hydroxyzine HCl] 25 mg PO TID PRN 08/13/19 [History] Docusate [Colace] 100 mg PO BID 30 Days #30 capsule 08/20/19 [Rx] OxyCODONE Immed Rel [Roxicodone 5 MG] 5 mg PO Q6HR PRN 5 Days #20 tablet 08/20/19 [Rx] Tamsulosin [Flomax] 0.4 mg PO DAILY 30 Days #30 capsule 08/20/19 [Rx] Allergies/Adverse Reactions: Allergy/AdvReac Type Severity Reaction Status Date / Time No Known Allergies Allergy Verified 08/13/19 21:48 Date of admission: 08/14/19 15:17 [facility] physician: [facility] Consults: 08/13/19 12:00 Consult to Orthopedic Surgery [CONS] Routine Consulting Provider: Orthopedic and Sports Medicine Reason for Consult: Rt hip intertrochantric fracture Call Completed: Yes 08/13/19 13:46 Consult to Assembler Tester [CONS] Routine Reason for SW Consult: patient states that he has lost weight d/t not having a way to get food to home 08/14/19 19:03 Consult to Orthopedic Navigator [CONS] [CONS] Routine Consult to Physical Therapy [CONS] Routine Comment: Evaluate, develop and implement POC Reason for Consult: post hip surgery Does patient have active BEDREST order?: No Is patient medically & hemodynamically stable?: Yes Patient assessed for mobility or mobilized this visit?: No Consult to Assembler Tester [CONS] Routine Reason for SW Consult: post -op hip fracture RT Post Op Consult [CONS] Routine Discharging clinician: Nataly Briggs Anticipated date of discharge: 08/20/19 - Constitutional Vitals: Temp Pulse Resp BP Pulse Ox 97.9 F 105 18 148/88 95 08/20/19 10:51 08/20/19 10:51 08/20/19 15:50 08/20/19 10:51 08/20/19 15:50 Exam: GENERAL: conversant, in no acute distress EYES: anicteric, clear sclerae. Pupils equal and reactive to light bilaterally. HENT: atraumatic, normocephalic. Moist mucosa. Poor dentition. NECK: supple, normal carotid pulses. CV: regular rate and rhythm. Normal S1 and S2. No murmurs, clicks, or gallops. RESPIRATORY/CHEST: diffuse wheezing, no rhonchi or rales ABDOMEN: soft, nontender, nondistended. Normal bowel sounds heard EXTREMITIES: surgical dressing was present on the right hip. No edema. Peripheral pulses 2+/4. Capillary refill<2 sec SKIN: bruises fading. Warm, dry. - Patient Status Disposition: Transfer SNF Condition: Good Functional capacity at discharge: uses cane/walker Overall status at discharge: patient is progressing back to baseline - Discharge Instructions Follow [facility] With: [facility] [Primary Care Provider] - - Diet and Activity Activity: ambulate only with your walker, as per physical therapy, increase activity as tolerated Diet: regular diet (may benefit from supplementation with Ensure or similar) <Carmelina Dowell - Last Filed: 08/20/19 19:56> Date of Encounter: 08/20/19 - Discharge Diagnosis (1) Closed right hip fracture Status: Acute Qualifiers: Encounter type: subsequent encounter Fracture healing: with routine healing Qualified Code(s): S72.001D - Fracture of unspecified part of neck of right femur, subsequent encounter for closed fracture with routine healing (2) RAGHAVENDRA (acute kidney injury) Status: Acute (3) Anemia Status: Acute Qualifiers: Anemia type: unspecified type Qualified Code(s): D64.9 - Anemia, unspecified (4) DVT prophylaxis Status: Acute (5) COPD exacerbation Status: Acute (6) Urinary retention Status: Acute Hospital course: Mr. Petty is a 68 year old male - Time Spent with Patient Total time spent providing and/or coordinating discharge services: Date of admission: 08/14/19 15:17 Primary care physician: [facility] Consults: 08/13/19 12:00 Consult to Orthopedic Surgery [CONS] Routine Consulting Provider: Orthopedic and Sports Medicine Reason for Consult: Rt hip intertrochantric fracture Call Completed: Yes 08/13/19 13:46 Consult to Assembler Tester [CONS] Routine Reason for SW Consult: patient states that he has lost weight d/t not having a way to get food to home 08/14/19 19:03 Consult to Orthopedic Navigator [CONS] [CONS] Routine Consult to Physical Therapy [CONS] Routine Comment: Evaluate, develop and implement POC Reason for Consult: post hip surgery Does patient have active BEDREST order?: No Is patient medically & hemodynamically stable?: Yes Patient assessed for mobility or mobilized this visit?: No Consult to Assembler Tester [CONS] Routine Reason for SW Consult: post -op hip fracture RT Post Op Consult [CONS] Routine - Constitutional Vitals: Temp Pulse Resp BP Pulse Ox 97.9 F 105 18 148/88 95 08/20/19 10:51 08/20/19 10:51 08/20/19 15:50 08/20/19 10:51 08/20/19 15:50 - Attending Attestation I saw evaluated and examined this patient and reviewed objective data including labs and my medical decision-making was reviewed with the Resident Physician. I agree with the documented findings, disposition and treatment plan as described except to any changes set forth below.
== END 2019-08-20 17:55 | DRG 481 ==
LOC: EMEROOARM 09:08 → 3ANU 10:35 → INTOOBSV 10:35 → 3ANU 10:38 → 3NENU 08-14 14:54 → SUATTDRO 08-14 15:17
PROVIDERS: ADMIT Internal Medicine; ATTEND Student in an Organized Health Care Education/Training Program

== ENCOUNTER 2019-12-01 08:29 | Inpatient (IN) ==
[2019-12-01] MEDS ORDERED: Ipratropium/Albuterol Neb 3 ML IH ONE (08:37)
[2019-12-01] MEDS ORDERED: predniSONE 20 MG TABLET PO ONE (08:37)
[2019-12-01 10:37] LABS: Basophils % 0.3 %; Eosinophils % 0.1 %; Hematocrit 21.3 % (37.5-50.1); Hemoglobin 7.2 g/dL (12.9-16.9); Immature Granulocytes % 0.6 % (0-4); Lymphocytes # 0.7 K/mcL (0.6-4.6); Lymphocytes % 7.1 %; Mean Corpuscular HGB Conc 33.8 g/dL (31.6-35.5); Mean Corpuscular Hemoglobin 32.7 pg (28.0-33.3); Mean Corpuscular Volume 96.8 fL (83.0-100.0); Mean Platelet Volume 9.5 fL (9.4-12.4); Monocytes # 0.5 K/mcL (0.0-1.3); Monocytes % 5.7 %; Platelet Count 399 K/mcL (140-400); Red Cell Distribution Width 15.3 % (11.5-14.5); Segmented Neutrophils % 86.2 %; White Blood Count 9.3 K/mcL (4.3-11.1)
[2019-12-01 10:57] LABS: BUN/Creatinine Ratio 12 (6-26); Blood Urea Nitrogen 9 mg/dL (8-23); Calcium 8.3 mg/dL (8.6-10.3); Carbon Dioxide 26 mEq/L (23-29); Chloride 94 mEq/L (98-107); Glucose 104 mg/dL (70-105); Osmolality,Calculated 271 (280-300); Potassium 3.8 mEq/L (3.5-5.1); Sodium 131 mEq/L (136-145); Troponin I < 0.03 ng/mL (< 0.04); eGFR For African Americans > 60 (> 60); eGFR For Non-African Americans > 60 (> 60)
[2019-12-01 12:22] LABS: Bilirubin,Urine Negative (Negative); Blood,Urine Negative (Negative); Clarity,Urine Clear (Clear); Color,Urine Yellow (Yellow); Glucose,Urine (UA) Normal (Normal); Ketones,Urine 15 mg/dL (Negative); Leukocyte Esterase,Urine Negative (Negative); Nitrite,Urine Negative (Negative); PH,Urine 6.5 pH Units (5.0-8.0); Protein,Urine Negative (Neg-Trace); Specific Gravity,Urine 1.016 (1.010-1.025); Urobilinogen,Urine Normal (Normal)
[2019-12-01] MEDS ORDERED: Naloxone 0.4 MG/ML INJ IVP PRN (13:39)
[2019-12-01] MEDS ORDERED: Ondansetron 4 MG/2 ML VIAL IVP PRN (13:39)
[2019-12-01] MEDS: Ipratropium/Albuterol Neb 3 ML IH SCH ×3 (16:49→23:25)
[2019-12-01] MEDS: Azithromycin 250 MG TABLET PO SCH (17:40)
[2019-12-01] MEDS: MethylPREDNISolone 40 MG/ML VIAL IVP SCH (17:40)
[2019-12-01] MEDS: Melatonin 3 MG TABLET PO SCH (20:25)
[2019-12-02] MEDS ORDERED: Mag Hydrox/Al Hydrox/Simeth 30 ML UDC PO PRN (03:03)
[2019-12-02] MEDS: Ipratropium/Albuterol Neb 3 ML IH SCH ×6 (03:44→23:47)
[2019-12-02] MEDS: hydrOXYzine pamoate 25 MG CAPSULE PO PRN ×4 (04:11→22:04)
[2019-12-02] MEDS: MethylPREDNISolone 40 MG/ML VIAL IVP SCH ×2 (04:12→18:00)
[2019-12-02 10:04] LABS: Basophils % 0.1 %; Hematocrit 19.4 % (37.5-50.1); Hemoglobin 6.6 g/dL (12.9-16.9); Immature Granulocytes % 0.8 % (0-4); Lymphocytes # 0.3 K/mcL (0.6-4.6); Lymphocytes % 3.2 %; Mean Corpuscular Hemoglobin 32.8 pg (28.0-33.3); Mean Corpuscular Volume 96.5 fL (83.0-100.0); Mean Platelet Volume 9.5 fL (9.4-12.4); Monocytes # 0.2 K/mcL (0.0-1.3); Monocytes % 1.9 %; Neutrophils # 8.7 K/mcL (1.6-8.9); Platelet Count 358 K/mcL (140-400); Red Blood Count 2.01 M/mcL (4.19-5.50); Red Cell Distribution Width 15.5 % (11.5-14.5); White Blood Count 9.3 K/mcL (4.3-11.1)
[2019-12-02 10:17] LABS: BUN/Creatinine Ratio 18 (6-26); Blood Urea Nitrogen 14 mg/dL (8-23); Calcium 8.3 mg/dL (8.6-10.3); Carbon Dioxide 27 mEq/L (23-29); Chloride 93 mEq/L (98-107); Glucose 187 mg/dL (70-105); Magnesium 1.7 mg/dL (1.6-2.6); Osmolality,Calculated 273 (280-300); Potassium 3.6 mEq/L (3.5-5.1); Sodium 129 mEq/L (136-145); eGFR For African Americans > 60 (> 60); eGFR For Non-African Americans > 60 (> 60)
[2019-12-02] MEDS: Azithromycin 250 MG TABLET PO SCH (10:19)
[2019-12-02 10:20] LABS: Platelet Estimate Normal (Normal); Reactive Lymphocytes Present (Not Present)
[2019-12-02] MEDS ORDERED: 0.9 % Sodium Chloride 250 ML ONE (13:17)
[2019-12-02] MEDS: Pantoprazole 40 MG VIAL IVP SCH (14:12)
[2019-12-02 18:23] LABS: Hematocrit 23.4 % (37.5-50.1); Hemoglobin 8.1 g/dL (12.9-16.9)
[2019-12-02] MEDS: Melatonin 3 MG TABLET PO SCH (22:04)
[2019-12-02 22:33] LABS: Hematocrit 23.8 % (37.5-50.1); Hemoglobin 8.1 g/dL (12.9-16.9)
[2019-12-03] MEDS: hydrOXYzine pamoate 25 MG CAPSULE PO PRN ×3 (02:55→17:52)
[2019-12-03] MEDS: Ipratropium/Albuterol Neb 3 ML IH SCH ×6 (03:37→23:35)
[2019-12-03] MEDS ORDERED: Chloraseptic Spray 177 ML BOTTLE MM PRN (04:52)
[2019-12-03] MEDS: MethylPREDNISolone 40 MG/ML VIAL IVP SCH ×2 (05:03→17:52)
[2019-12-03 07:34] LABS: Basophils % 0.1 %; Hematocrit 24.6 % (37.5-50.1); Immature Granulocytes % 0.8 % (0-4); Lymphocytes # 0.6 K/mcL (0.6-4.6); Lymphocytes % 3.8 %; Mean Corpuscular HGB Conc 32.5 g/dL (31.6-35.5); Mean Corpuscular Hemoglobin 31.6 pg (28.0-33.3); Mean Corpuscular Volume 97.2 fL (83.0-100.0); Mean Platelet Volume 9.3 fL (9.4-12.4); Monocytes # 0.8 K/mcL (0.0-1.3); Monocytes % 4.9 %; Neutrophils # 14.6 K/mcL (1.6-8.9); Nucleated Red Blood Cells 0.1 /100 WBC (0); Platelet Count 337 K/mcL (140-400); Red Blood Count 2.53 M/mcL (4.19-5.50); Red Cell Distribution Width 16.5 % (11.5-14.5); Segmented Neutrophils % 90.4 %
[2019-12-03 07:51] LABS: White Blood Count 16.1 K/mcL (4.3-11.1)
[2019-12-03 07:54] LABS: BUN/Creatinine Ratio 18 (6-26); Blood Urea Nitrogen 12 mg/dL (8-23); Calcium 8.5 mg/dL (8.6-10.3); Carbon Dioxide 29 mEq/L (23-29); Chloride 88 mEq/L (98-107); Glucose 134 mg/dL (70-105); Osmolality,Calculated 262 (280-300); Potassium 4.1 mEq/L (3.5-5.1); Sodium 125 mEq/L (136-145); eGFR For African Americans > 60 (> 60); eGFR For Non-African Americans > 60 (> 60)
[2019-12-03] MEDS ORDERED: Acetaminophen 325 MG TABLET PO PRN (09:09)
[2019-12-03] MEDS: Azithromycin 250 MG TABLET PO SCH (09:19)
[2019-12-03] MEDS: Sodium Ferric Gluconat/Sucrose 125 MG in 0.9 % Sodium Chloride 100 ML IVPB SCH (09:20)
[2019-12-03] MEDS: Pantoprazole 40 MG VIAL IVP SCH (09:20)
[2019-12-03] MEDS: *HR* LORazepam 2 MG/ML VIAL IVP PRN ×2 (12:03→17:52)
[2019-12-03 12:05] LABS: ABG Base Excess 3 mEq/L (-2 to 3); ABG HCO3 29 mEq/L (21-27); ABG Oxygen Saturation 99 % (95-98); ABG PCO2 51 mmHg (35-45); ABG PH 7.36 pH Units (7.32-7.45); ABG PO2 160 mmHg (85-104); ABG TCO2 30 mEq/L (20-26); Blood Gas Pressure Support 12 cm H2O
[2019-12-03 12:34] LABS: Sodium, Urine 69.1 mEq/L
[2019-12-03] MEDS: Melatonin 3 MG TABLET PO SCH (19:45)
[2019-12-03 20:36] LABS: Adenovirus Not Detected (Not Detect); Bordetella Pertussis Not Detected (Not Detect); Chlamydophila pneumoniae Not Detected (Not Detect); Coronavirus 229E Not Detected (Not Detect); Coronavirus HKU1 Not Detected (Not Detect); Coronavirus NL63 Not Detected (Not Detect); Coronavirus OC43 Not Detected (Not Detect); Human Metapneumovirus Not Detected (Not Detect); Human Rhinovirus/Enterovirus Not Detected (Not Detect); Influenza A Subtype 2009 H1 Not Detected (Not Detect); Influenza B Not Detected (Not Detect); Mycoplasma pneumoniae Not Detected (Not Detect); Parainfluenza Virus 1 Not Detected (Not Detect); Parainfluenza Virus 2 Not Detected (Not Detect); Parainfluenza Virus 3 Not Detected (Not Detect); Parainfluenza Virus 4 Not Detected (Not Detect); Respiratory Syncytial Virus Not Detected (Not Detect)
[2019-12-04] MEDS: *HR* LORazepam 2 MG/ML VIAL IVP PRN (03:07)
[2019-12-04] MEDS: Ipratropium/Albuterol Neb 3 ML IH SCH ×6 (04:06→23:22)
[2019-12-04 04:13] LABS: Basophils % 0.1 %; Hematocrit 25.7 % (37.5-50.1); Hemoglobin 8.6 g/dL (12.9-16.9); Immature Granulocytes % 0.8 % (0-4); Lymphocytes # 0.5 K/mcL (0.6-4.6); Lymphocytes % 4.1 %; Mean Corpuscular HGB Conc 33.5 g/dL (31.6-35.5); Mean Corpuscular Hemoglobin 32.1 pg (28.0-33.3); Mean Corpuscular Volume 95.9 fL (83.0-100.0); Mean Platelet Volume 10.1 fL (9.4-12.4); Monocytes # 0.7 K/mcL (0.0-1.3); Monocytes % 6.4 %; Neutrophils # 10.1 K/mcL (1.6-8.9); Nucleated Red Blood Cells 0.2 /100 WBC (0); Platelet Count 316 K/mcL (140-400); Red Blood Count 2.68 M/mcL (4.19-5.50); Red Cell Distribution Width 16.8 % (11.5-14.5); Segmented Neutrophils % 88.6 %; White Blood Count 11.4 K/mcL (4.3-11.1)
[2019-12-04 04:32] LABS: BUN/Creatinine Ratio 19 (6-26); Blood Urea Nitrogen 15 mg/dL (8-23); Calcium 8.5 mg/dL (8.6-10.3); Carbon Dioxide 27 mEq/L (23-29); Chloride 88 mEq/L (98-107); Glucose 112 mg/dL (70-105); Osmolality,Calculated 260 (280-300); Potassium 4.5 mEq/L (3.5-5.1); Sodium 124 mEq/L (136-145); eGFR For African Americans > 60 (> 60); eGFR For Non-African Americans > 60 (> 60)
[2019-12-04] MEDS: MethylPREDNISolone 40 MG/ML VIAL IVP SCH ×2 (05:35→17:07)
[2019-12-04] MEDS: Azithromycin 250 MG TABLET PO SCH (08:11)
[2019-12-04] MEDS: Pantoprazole 40 MG VIAL IVP SCH (08:11)
[2019-12-04] MEDS: hydrOXYzine pamoate 25 MG CAPSULE PO PRN ×2 (08:16→20:51)
[2019-12-04] MEDS ORDERED: Furosemide 40 MG/4 ML VIAL IVP ONE (14:00)
[2019-12-04] MEDS ORDERED: *HR* Propofol 200 MG/20 ML VIAL IVP ONE (14:34)
[2019-12-04] MEDS ORDERED: Lidocaine -MPF 2% 2 ML VIAL ONE (15:00)
[2019-12-04] MEDS ORDERED: *HR* EPINEPHrine 1 MG/10 ML SYRINGE ONE (15:02)
[2019-12-04] MEDS: Melatonin 3 MG TABLET PO SCH (20:51)
[2019-12-05] MEDS: Ipratropium/Albuterol Neb 3 ML IH SCH ×6 (03:51→23:43)
[2019-12-05 05:39] LABS: Hematocrit 24.6 % (37.5-50.1); Hemoglobin 7.9 g/dL (12.9-16.9); Immature Granulocytes % 0.5 % (0-4); Lymphocytes # 0.4 K/mcL (0.6-4.6); Lymphocytes % 4.2 %; Mean Corpuscular HGB Conc 32.1 g/dL (31.6-35.5); Mean Corpuscular Hemoglobin 31.5 pg (28.0-33.3); Mean Platelet Volume 9.6 fL (9.4-12.4); Monocytes # 0.7 K/mcL (0.0-1.3); Monocytes % 8.3 %; Neutrophils # 7.3 K/mcL (1.6-8.9); Nucleated Red Blood Cells 0.5 /100 WBC (0); Platelet Count 355 K/mcL (140-400); Red Blood Count 2.51 M/mcL (4.19-5.50); Red Cell Distribution Width 16.2 % (11.5-14.5); White Blood Count 8.3 K/mcL (4.3-11.1)
[2019-12-05 06:01] LABS: BUN/Creatinine Ratio 18 (6-26); Blood Urea Nitrogen 20 mg/dL (8-23); Calcium 8.5 mg/dL (8.6-10.3); Carbon Dioxide 33 mEq/L (23-29); Chloride 88 mEq/L (98-107); Glucose 147 mg/dL (70-105); Osmolality,Calculated 273 (280-300); Sodium 129 mEq/L (136-145); eGFR For African Americans > 60 (> 60); eGFR For Non-African Americans > 60 (> 60)
[2019-12-05] MEDS: hydrOXYzine pamoate 25 MG CAPSULE PO PRN ×3 (06:15→20:08)
[2019-12-05] MEDS: MethylPREDNISolone 40 MG/ML VIAL IVP SCH ×2 (06:16→16:58)
[2019-12-05] MEDS: Sodium Ferric Gluconat/Sucrose 125 MG in 0.9 % Sodium Chloride 100 ML IVPB SCH (08:55)
[2019-12-05] MEDS: Pantoprazole 40 MG VIAL IVP SCH (08:55)
[2019-12-05] MEDS: Azithromycin 250 MG TABLET PO SCH (08:55)
[2019-12-05] MEDS ORDERED: Furosemide 20 MG/2 ML VIAL IVP SCH (09:00)
[2019-12-05] MEDS: Melatonin 3 MG TABLET PO SCH (20:04)
[2019-12-06] MEDS: Ipratropium/Albuterol Neb 3 ML IH SCH ×5 (03:40→20:00)
[2019-12-06] MEDS: MethylPREDNISolone 40 MG/ML VIAL IVP SCH (05:02)
[2019-12-06] MEDS: hydrOXYzine pamoate 25 MG CAPSULE PO PRN ×2 (05:03→19:48)
[2019-12-06 05:26] LABS: Hematocrit 25.3 % (37.5-50.1); Hemoglobin 8.3 g/dL (12.9-16.9); Immature Granulocytes % 0.7 % (0-4); Lymphocytes # 0.5 K/mcL (0.6-4.6); Lymphocytes % 5.1 %; Mean Corpuscular HGB Conc 32.8 g/dL (31.6-35.5); Mean Corpuscular Hemoglobin 31.6 pg (28.0-33.3); Mean Corpuscular Volume 96.2 fL (83.0-100.0); Mean Platelet Volume 10.5 fL (9.4-12.4); Monocytes # 1.1 K/mcL (0.0-1.3); Neutrophils # 8.3 K/mcL (1.6-8.9); Nucleated Red Blood Cells 0.3 /100 WBC (0); Platelet Count 214 K/mcL (140-400); Red Blood Count 2.63 M/mcL (4.19-5.50); Red Cell Distribution Width 16.1 % (11.5-14.5); Segmented Neutrophils % 83.2 %
[2019-12-06 05:45] LABS: BUN/Creatinine Ratio 28 (6-26); Blood Urea Nitrogen 19 mg/dL (8-23); Calcium 8.3 mg/dL (8.6-10.3); Carbon Dioxide 32 mEq/L (23-29); Chloride 91 mEq/L (98-107); Glucose 134 mg/dL (70-105); Osmolality,Calculated 274 (280-300); Potassium 4.2 mEq/L (3.5-5.1); Sodium 130 mEq/L (136-145); eGFR For African Americans > 60 (> 60); eGFR For Non-African Americans > 60 (> 60)
[2019-12-06] MEDS: Melatonin 3 MG TABLET PO SCH (19:48)
[2019-12-07] MEDS: Ipratropium/Albuterol Neb 3 ML IH SCH ×4 (00:03→11:19)
[2019-12-07 07:00] VITALS: BP 163/91
[2019-12-07] MEDS ORDERED: MethylPREDNISolone 40 MG/ML VIAL IVP SCH (09:00)
[2019-12-07 09:33] LABS: Basophils % 0.1 %; Eosinophils # 0.2 K/mcL (0.0-0.6); Eosinophils % 1.1 %; Hematocrit 28.7 % (37.5-50.1); Hemoglobin 9.2 g/dL (12.9-16.9); Immature Granulocytes % 0.8 % (0-4); Lymphocytes # 1.3 K/mcL (0.6-4.6); Lymphocytes % 8.5 %; Mean Corpuscular HGB Conc 32.1 g/dL (31.6-35.5); Mean Corpuscular Hemoglobin 31.5 pg (28.0-33.3); Mean Corpuscular Volume 98.3 fL (83.0-100.0); Mean Platelet Volume 10.2 fL (9.4-12.4); Monocytes # 1.5 K/mcL (0.0-1.3); Monocytes % 9.8 %; Neutrophils # 12.1 K/mcL (1.6-8.9); Platelet Count 265 K/mcL (140-400); Red Blood Count 2.92 M/mcL (4.19-5.50); Red Cell Distribution Width 16.2 % (11.5-14.5); Segmented Neutrophils % 79.7 %
[2019-12-07 09:35] LABS: White Blood Count 15.2 K/mcL (4.3-11.1)
[2019-12-07 09:53] LABS: BUN/Creatinine Ratio 21 (6-26); Blood Urea Nitrogen 20 mg/dL (8-23); Calcium 8.2 mg/dL (8.6-10.3); Carbon Dioxide 38 mEq/L (23-29); Chloride 87 mEq/L (98-107); Glucose 103 mg/dL (70-105); Osmolality,Calculated 271 (280-300); Potassium 4.2 mEq/L (3.5-5.1); Sodium 129 mEq/L (136-145); eGFR For African Americans > 60 (> 60); eGFR For Non-African Americans > 60 (> 60)
[2019-12-07] MEDS ORDERED: predniSONE 20 MG TABLET PO SCH (10:05)
[2019-12-07] MEDS: hydrOXYzine pamoate 25 MG CAPSULE PO PRN (11:26)
== END 2019-12-07 12:14 | DRG 291 ==
LOC: EMEROOARM 08:29 → 2ANU 08:29 → SUATTDRO 15:59 → 2ANU 16:44 → SUATTDRO 12-03 16:56
PROVIDERS: ADMIT Internal Medicine; ATTEND Family Medicine

== ENCOUNTER 2020-01-28 16:09 | Observation (INO) ==
[2020-01-28 17:42] LABS: Bilirubin,Urine Small (Negative); Blood,Urine Negative (Negative); Clarity,Urine Cloudy (Clear); Color,Urine Yellow (Yellow); Glucose,Urine (UA) Normal (Normal); Ketones,Urine 40 mg/dL (Negative); Leukocyte Esterase,Urine Negative (Negative); Nitrite,Urine Negative (Negative); PH,Urine 6.5 pH Units (5.0-8.0); Protein,Urine Negative (Neg-Trace); Urobilinogen,Urine Normal (Normal)
[2020-01-28 17:44] LABS: Bacteria,Urine None Seen per hpf (None-Few); Hyaline Casts,Urine None Seen per lpf (None-Few); RBC,Urine 0-3 per hpf (0-3); Squamous Epithelial Cell,Urine Many per lpf (None-Few); WBC,Urine 0-3 per hpf (0-3)
[2020-01-29] MEDS ORDERED: Naloxone 0.4 MG/ML INJ IVP PRN (00:13)
[2020-01-29 01:38] LABS: Basophils # 0.1 K/mcL (0.0-0.2); Basophils % 2.2 %; Eosinophils # 0.2 K/mcL (0.0-0.6); Eosinophils % 3.6 %; Hematocrit 35.2 % (37.5-50.1); Hemoglobin 11.2 g/dL (12.9-16.9); Immature Granulocytes % 0.3 % (0-4); Lymphocytes # 1.1 K/mcL (0.6-4.6); Lymphocytes % 17.8 %; Mean Corpuscular HGB Conc 31.8 g/dL (31.6-35.5); Mean Corpuscular Hemoglobin 29.9 pg (28.0-33.3); Mean Corpuscular Volume 94.1 fL (83.0-100.0); Mean Platelet Volume 10.5 fL (9.4-12.4); Monocytes # 0.7 K/mcL (0.0-1.3); Monocytes % 11.2 %; Neutrophils # 4.1 K/mcL (1.6-8.9); Platelet Count 253 K/mcL (140-400); Red Blood Count 3.74 M/mcL (4.19-5.50); Red Cell Distribution Width 14.5 % (11.5-14.5); Segmented Neutrophils % 64.9 %; White Blood Count 6.4 K/mcL (4.3-11.1)
[2020-01-29 01:58] LABS: Alanine Aminotransferase 13 Units/L (7-52); Albumin 3.9 g/dL (3.5-5.7); Albumin/Globulin Ratio 1.3 (1.1-2.2); Alkaline Phosphatase 137 Units/L (34-104); Aspartate Amino Transferase 19 Units/L (13-39); BUN/Creatinine Ratio 23 (6-26); Bilirubin,Total 0.5 mg/dL (0.3-1.0); Blood Urea Nitrogen 22 mg/dL (8-23); Calcium 8.7 mg/dL (8.6-10.3); Carbon Dioxide 30 mEq/L (23-29); Chloride 99 mEq/L (98-107); Glucose 89 mg/dL (70-105); Magnesium 1.9 mg/dL (1.6-2.6); Osmolality,Calculated 285 (280-300); Phosphorous 3.9 mg/dL (2.7-4.5); Potassium 3.2 mEq/L (3.5-5.1); Sodium 136 mEq/L (136-145); Total Protein 6.9 g/dL (6.4-8.9); eGFR For African Americans > 60 (> 60); eGFR For Non-African Americans > 60 (> 60)
[2020-01-29] MEDS ORDERED: Ketorolac 30 MG/ML VIAL IVP PRN (05:13)
[2020-01-29] MEDS ORDERED: hydrOXYzine pamoate 25 MG CAPSULE PO PRN (08:35)
[2020-01-29 11:07] VITALS: BP 157/94
== END 2020-01-29 14:58 | disposition home health service (06) ==
LOC: EMEROOARM 16:09 → 3BNU 16:09 → SUATTDRO 20:57 → 3BNU 21:38
PROVIDERS: ADMIT Family Medicine; ATTEND Internal Medicine

== ENCOUNTER 2020-04-07 13:37 | Inpatient (IN) ==
[2020-04-07] MEDS ORDERED: methylPREDNISolone 125 MG/2 ML VIAL IVP ONE (13:44)
[2020-04-07 14:22] LABS: Basophils # 0.1 K/mcL (0.0-0.2); Basophils % 0.6 %; Eosinophils % 0.1 %; Hematocrit 37.7 % (37.5-50.1); Hemoglobin 12.5 g/dL (12.9-16.9); Immature Granulocytes % 0.5 % (0-4); Lymphocytes # 0.9 K/mcL (0.6-4.6); Lymphocytes % 5.4 %; Mean Corpuscular HGB Conc 33.2 g/dL (31.6-35.5); Mean Corpuscular Hemoglobin 31.8 pg (28.0-33.3); Mean Corpuscular Volume 95.9 fL (83.0-100.0); Mean Platelet Volume 10.5 fL (9.4-12.4); Monocytes # 1.2 K/mcL (0.0-1.3); Monocytes % 7.3 %; Neutrophils # 14.6 K/mcL (1.6-8.9); Platelet Count 284 K/mcL (140-400); Red Blood Count 3.93 M/mcL (4.19-5.50); Red Cell Distribution Width 16.1 % (11.5-14.5); Segmented Neutrophils % 86.1 %
[2020-04-07 14:41] LABS: Alanine Aminotransferase 26 Units/L (7-52); Albumin 4.5 g/dL (3.5-5.7); Albumin/Globulin Ratio 1.5 (1.1-2.2); Alkaline Phosphatase 126 Units/L (34-104); Aspartate Amino Transferase 39 Units/L (13-39); BUN/Creatinine Ratio 16 (6-26); Bilirubin,Total 0.9 mg/dL (0.3-1.0); Blood Urea Nitrogen 9 mg/dL (8-23); Calcium 9.1 mg/dL (8.6-10.3); Carbon Dioxide 31 mEq/L (23-29); Chloride 85 mEq/L (98-107); Glucose 135 mg/dL (70-105); Osmolality,Calculated 263 (280-300); Potassium 4.3 mEq/L (3.5-5.1); Sodium 126 mEq/L (136-145); Total Protein 7.5 g/dL (6.4-8.9); Troponin I < 0.03 ng/mL (< 0.04); eGFR For African Americans > 60 (> 60); eGFR For Non-African Americans > 60 (> 60)
[2020-04-07 14:56] LABS: Prothrombin Time 11.9 Seconds (9.4-12.1)
[2020-04-07] MEDS ORDERED: Naloxone 0.4 MG/ML INJ IVP PRN (15:16)
[2020-04-07] MEDS ORDERED: MOM Conc 10 ML UD.LIQ PO PRN (15:16)
[2020-04-07] MEDS ORDERED: Mag Hydrox/Al Hydrox/Simeth 30 ML UDC PO PRN (15:16)
[2020-04-07] MEDS ORDERED: Acetaminophen 325 MG TABLET PO PRN (15:16)
[2020-04-07] MEDS ORDERED: *HR* Promethazine 25 MG/ML VIAL IVP PRN (15:16)
[2020-04-07] MEDS ORDERED: Ondansetron 4 MG/2 ML VIAL IVP PRN (15:16)
[2020-04-07] MEDS ORDERED: Ipratropium/Albuterol Neb 3 ML IH PRN (15:18)
[2020-04-07] MEDS: Ipratropium/Albuterol Neb 3 ML IH SCH ×2 (16:00→21:54)
[2020-04-07] MEDS ORDERED: Ipratropium/Albuterol Neb 3 ML IH SCH (16:00)
[2020-04-07] MEDS: Azithromycin 500 MG in 0.9 % Sodium Chloride 250 ML IVPB SCH (18:27)
[2020-04-07] MEDS: *HR* Heparin 5,000 UNIT/ML VIAL SQ SCH (18:27)
[2020-04-07] MEDS: *HR* HYDROcodone/Acet 5/325 mg TABLET PO PRN (19:40)
[2020-04-07] MEDS: Budesonide/Formoterol 80/4.5 1 PUFF INH IH SCH (21:56)
[2020-04-07 23:19] LABS: Adenovirus Not Detected (Not Detect); Bordetella Pertussis Not Detected (Not Detect); Chlamydophila pneumoniae Not Detected (Not Detect); Coronavirus 229E Not Detected (Not Detect); Coronavirus HKU1 Not Detected (Not Detect); Coronavirus NL63 Not Detected (Not Detect); Coronavirus OC43 Not Detected (Not Detect); Human Metapneumovirus Not Detected (Not Detect); Human Rhinovirus/Enterovirus Not Detected (Not Detect); Influenza A Subtype 2009 H1 Not Detected (Not Detect); Influenza B Not Detected (Not Detect); Mycoplasma pneumoniae Not Detected (Not Detect); Parainfluenza Virus 1 Not Detected (Not Detect); Parainfluenza Virus 2 Not Detected (Not Detect); Parainfluenza Virus 3 Not Detected (Not Detect); Parainfluenza Virus 4 Not Detected (Not Detect); Respiratory Syncytial Virus Not Detected (Not Detect)
[2020-04-07] MEDS: methylPREDNISolone 125 MG/2 ML VIAL IVP SCH (23:41)
[2020-04-07] MEDS: amLODIPine 5 MG TABLET PO SCH (23:53)
[2020-04-08] MEDS: Ipratropium/Albuterol Neb 3 ML IH SCH ×4 (03:05→21:17)
[2020-04-08] MEDS: *HR* Heparin 5,000 UNIT/ML VIAL SQ SCH (05:53)
[2020-04-08 06:32] LABS: Hematocrit 35.9 % (37.5-50.1); Hemoglobin 11.8 g/dL (12.9-16.9); Immature Granulocytes % 0.4 % (0-4); Lymphocytes # 0.1 K/mcL (0.6-4.6); Lymphocytes % 1.8 %; Mean Corpuscular HGB Conc 32.9 g/dL (31.6-35.5); Mean Corpuscular Hemoglobin 31.9 pg (28.0-33.3); Mean Platelet Volume 10.6 fL (9.4-12.4); Monocytes # 0.2 K/mcL (0.0-1.3); Monocytes % 2.9 %; Neutrophils # 7.2 K/mcL (1.6-8.9); Platelet Count 233 K/mcL (140-400); Red Cell Distribution Width 16.5 % (11.5-14.5); Segmented Neutrophils % 94.9 %
[2020-04-08 06:36] LABS: White Blood Count 7.6 K/mcL (4.3-11.1)
[2020-04-08 06:53] LABS: Platelet Estimate Normal (Normal)
[2020-04-08 06:54] LABS: BUN/Creatinine Ratio 16 (6-26); Blood Urea Nitrogen 12 mg/dL (8-23); Calcium 9.3 mg/dL (8.6-10.3); Carbon Dioxide 32 mEq/L (23-29); Chloride 87 mEq/L (98-107); Glucose 404 mg/dL (70-105); Osmolality,Calculated 283 (280-300); Phosphorous 1.3 mg/dL (2.7-4.5); Potassium 4.4 mEq/L (3.5-5.1); Sodium 128 mEq/L (136-145); eGFR For African Americans > 60 (> 60); eGFR For Non-African Americans > 60 (> 60)
[2020-04-08 07:08] LABS: Thyroid Stimulating Hormone 0.628 mcIU/mL (0.340-5.600)
[2020-04-08] MEDS: methylPREDNISolone 125 MG/2 ML VIAL IVP SCH ×2 (07:30→16:13)
[2020-04-08] MEDS: amLODIPine 5 MG TABLET PO SCH (07:32)
[2020-04-08] MEDS: *HR* HYDROcodone/Acet 5/325 mg TABLET PO PRN ×3 (07:34→22:48)
[2020-04-08] MEDS ORDERED: amLODIPine 5 MG TABLET PO SCH (09:00)
[2020-04-08] MEDS: Budesonide/Formoterol 80/4.5 1 PUFF INH IH SCH ×2 (09:21→21:17)
[2020-04-08] MEDS: Azithromycin 500 MG in 0.9 % Sodium Chloride 250 ML IVPB SCH (16:13)
[2020-04-08] MEDS ORDERED: Warfarin perPT PO PRN (18:00)
[2020-04-08] MEDS ORDERED: *HR* Warfarin 3 MG TABLET PO ONE (18:00)
[2020-04-08] MEDS: Apixaban 5 MG TABLET PO SCH (20:43)
[2020-04-08] MEDS ORDERED: *HR* LORazepam 2 MG/ML VIAL IVP ONE (22:43)
[2020-04-08] MEDS: Melatonin 3 MG TABLET PO SCH (22:48)
[2020-04-09] MEDS: methylPREDNISolone 125 MG/2 ML VIAL IVP SCH ×2 (00:51→08:10)
[2020-04-09] MEDS: Ipratropium/Albuterol Neb 3 ML IH SCH ×4 (03:12→22:01)
[2020-04-09] MEDS: amLODIPine 5 MG TABLET PO SCH (08:10)
[2020-04-09] MEDS: Apixaban 5 MG TABLET PO SCH ×2 (08:10→20:25)
[2020-04-09 08:29] LABS: Hematocrit 38.5 % (37.5-50.1); Hemoglobin 12.6 g/dL (12.9-16.9); Mean Corpuscular HGB Conc 32.7 g/dL (31.6-35.5); Mean Corpuscular Hemoglobin 32.4 pg (28.0-33.3); Mean Platelet Volume 11.5 fL (9.4-12.4); Platelet Count 194 K/mcL (140-400); Red Blood Count 3.89 M/mcL (4.19-5.50); Red Cell Distribution Width 17.1 % (11.5-14.5)
[2020-04-09 08:33] LABS: Prothrombin Time 11.1 Seconds (9.4-12.1)
[2020-04-09 08:47] LABS: BUN/Creatinine Ratio 33 (6-26); Blood Urea Nitrogen 16 mg/dL (8-23); Carbon Dioxide 35 mEq/L (23-29); Chloride 90 mEq/L (98-107); Potassium 3.9 mEq/L (3.5-5.1); Sodium 130 mEq/L (136-145); eGFR For African Americans > 60 (> 60); eGFR For Non-African Americans > 60 (> 60)
[2020-04-09 08:48] LABS: Calcium 9.3 mg/dL (8.6-10.3); Glucose 144 mg/dL (70-105); Osmolality,Calculated 274 (280-300); Phosphorous 2.2 mg/dL (2.7-4.5)
[2020-04-09] MEDS: Budesonide/Formoterol 80/4.5 1 PUFF INH IH SCH ×2 (10:33→22:01)
[2020-04-09] MEDS: Azithromycin 500 MG in 0.9 % Sodium Chloride 250 ML IVPB SCH (16:08)
[2020-04-09] MEDS: *HR* HYDROcodone/Acet 5/325 mg TABLET PO PRN (16:42)
[2020-04-09] MEDS ORDERED: *HR* LORazepam 2 MG/ML VIAL IVP ONE (20:06)
[2020-04-09] MEDS: Melatonin 3 MG TABLET PO SCH (20:25)
[2020-04-10] MEDS: Ipratropium/Albuterol Neb 3 ML IH SCH ×4 (04:23→22:36)
[2020-04-10 05:54] LABS: Basophils % 0.1 %; Hematocrit 34.8 % (37.5-50.1); Hemoglobin 11.4 g/dL (12.9-16.9); Immature Granulocytes % 1.1 % (0-4); Lymphocytes # 0.3 K/mcL (0.6-4.6); Lymphocytes % 2.3 %; Mean Corpuscular HGB Conc 32.8 g/dL (31.6-35.5); Mean Corpuscular Hemoglobin 32.8 pg (28.0-33.3); Mean Platelet Volume 12.3 fL (9.4-12.4); Monocytes # 0.9 K/mcL (0.0-1.3); Monocytes % 6.4 %; Neutrophils # 12.9 K/mcL (1.6-8.9); Platelet Count 124 K/mcL (140-400); Red Blood Count 3.48 M/mcL (4.19-5.50); Red Cell Distribution Width 17.2 % (11.5-14.5); Segmented Neutrophils % 90.1 %; White Blood Count 14.3 K/mcL (4.3-11.1)
[2020-04-10] MEDS: *HR* HYDROcodone/Acet 5/325 mg TABLET PO PRN ×2 (06:11→17:42)
[2020-04-10 06:32] LABS: BUN/Creatinine Ratio 40 (6-26); Blood Urea Nitrogen 21 mg/dL (8-23); Calcium 8.9 mg/dL (8.6-10.3); Carbon Dioxide 32 mEq/L (23-29); Chloride 94 mEq/L (98-107); Glucose 158 mg/dL (70-105); Osmolality,Calculated 280 (280-300); Potassium 4.3 mEq/L (3.5-5.1); Sodium 132 mEq/L (136-145); eGFR For African Americans > 60 (> 60); eGFR For Non-African Americans > 60 (> 60)
[2020-04-10] MEDS: amLODIPine 5 MG TABLET PO SCH (09:48)
[2020-04-10] MEDS: Apixaban 5 MG TABLET PO SCH ×2 (09:48→21:08)
[2020-04-10] MEDS: predniSONE 20 MG TABLET PO SCH (09:48)
[2020-04-10] MEDS: Budesonide/Formoterol 80/4.5 1 PUFF INH IH SCH ×2 (10:14→22:36)
[2020-04-10] MEDS ORDERED: Azithromycin 250 MG TABLET PO SCH (16:00)
[2020-04-10] MEDS: Melatonin 3 MG TABLET PO SCH (21:08)
[2020-04-11] MEDS: *HR* HYDROcodone/Acet 5/325 mg TABLET PO PRN (00:01)
[2020-04-11] MEDS: Ipratropium/Albuterol Neb 3 ML IH SCH ×2 (03:49→10:22)
[2020-04-11 05:42] LABS: Basophils % 0.1 %; Hematocrit 33.5 % (37.5-50.1); Hemoglobin 10.7 g/dL (12.9-16.9); Immature Granulocytes % 1.1 % (0-4); Lymphocytes # 0.6 K/mcL (0.6-4.6); Lymphocytes % 6.9 %; Mean Corpuscular HGB Conc 31.9 g/dL (31.6-35.5); Mean Corpuscular Hemoglobin 31.8 pg (28.0-33.3); Mean Corpuscular Volume 99.4 fL (83.0-100.0); Mean Platelet Volume 11.1 fL (9.4-12.4); Monocytes # 0.7 K/mcL (0.0-1.3); Neutrophils # 7.7 K/mcL (1.6-8.9); Platelet Count 175 K/mcL (140-400); Red Blood Count 3.37 M/mcL (4.19-5.50); Red Cell Distribution Width 16.9 % (11.5-14.5); Segmented Neutrophils % 83.9 %; White Blood Count 9.2 K/mcL (4.3-11.1)
[2020-04-11 06:04] LABS: BUN/Creatinine Ratio 39 (6-26); Blood Urea Nitrogen 24 mg/dL (8-23); Calcium 8.5 mg/dL (8.6-10.3); Carbon Dioxide 33 mEq/L (23-29); Chloride 96 mEq/L (98-107); Glucose 124 mg/dL (70-105); Osmolality,Calculated 283 (280-300); Potassium 4.3 mEq/L (3.5-5.1); Sodium 134 mEq/L (136-145); eGFR For African Americans > 60 (> 60); eGFR For Non-African Americans > 60 (> 60)
[2020-04-11 07:38] VITALS: BP 152/95
[2020-04-11] MEDS: Apixaban 5 MG TABLET PO SCH (08:55)
[2020-04-11] MEDS: predniSONE 20 MG TABLET PO SCH (08:55)
[2020-04-11] MEDS: amLODIPine 5 MG TABLET PO SCH (08:57)
[2020-04-11] MEDS: Budesonide/Formoterol 80/4.5 1 PUFF INH IH SCH (10:22)
== END 2020-04-11 11:42 | DRG 190 ==
LOC: 3BNU 13:37 → EMEROOARM 13:37 → 3BNU 17:30
PROVIDERS: ADMIT Internal Medicine; ATTEND Internal Medicine

== ENCOUNTER 2020-10-27 01:44 | Inpatient (IN) ==
[2020-10-27] MEDS ORDERED: methylPREDNISolone 125 MG/2 ML VIAL IVP ONE (05:36)
[2020-10-27] MEDS ORDERED: Azithromycin 500 MG in 0.9 % Sodium Chloride 250 ML IVPB ONE (06:04)
[2020-10-27 07:16] LABS: Basophils # 0.1 K/mcL (0.0-0.2); Eosinophils # 0.1 K/mcL (0.0-0.6); Eosinophils % 2.3 %; Hematocrit 39.6 % (37.5-50.1); Hemoglobin 13.4 g/dL (12.9-16.9); Immature Granulocytes % 0.2 % (0-4); Lymphocytes # 1.3 K/mcL (0.6-4.6); Lymphocytes % 27.8 %; Mean Corpuscular HGB Conc 33.8 g/dL (31.6-35.5); Mean Corpuscular Hemoglobin 33.8 pg (28.0-33.3); Mean Platelet Volume 10.7 fL (9.4-12.4); Monocytes # 0.7 K/mcL (0.0-1.3); Monocytes % 15.7 %; Neutrophils # 2.4 K/mcL (1.6-8.9); Platelet Count 338 K/mcL (140-400); Red Blood Count 3.96 M/mcL (4.19-5.50); Red Cell Distribution Width 12.2 % (11.5-14.5); White Blood Count 4.7 K/mcL (4.3-11.1)
[2020-10-27 07:32] LABS: BUN/Creatinine Ratio 11 (6-26); Blood Urea Nitrogen 7 mg/dL (8-23); Carbon Dioxide 33 mEq/L (23-29); Chloride 85 mEq/L (98-107); Glucose 76 mg/dL (70-105); Osmolality,Calculated 261 (280-300); Potassium 4.4 mEq/L (3.5-5.1); Sodium 127 mEq/L (136-145); eGFR For African Americans > 60 (> 60); eGFR For Non-African Americans > 60 (> 60)
[2020-10-27] MEDS ORDERED: 0.9 % Sodium Chloride 1,000 ML IVC SCH (08:45)
[2020-10-27] MEDS ORDERED: Acetaminophen 325 MG TABLET PO PRN (08:45)
[2020-10-27] MEDS ORDERED: Naloxone 0.4 MG/ML INJ IVP PRN (08:45)
[2020-10-27] MEDS ORDERED: Ondansetron 4 MG/2 ML VIAL IVP PRN (08:45)
[2020-10-27] MEDS ORDERED: Ipratropium/Albuterol Neb 3 ML IH PRN (08:48)
[2020-10-27] MEDS: Ipratropium/Albuterol Neb 3 ML IH SCH ×3 (09:52→22:51)
[2020-10-27] MEDS: *HR* Heparin 5,000 UNIT/ML VIAL SQ SCH (16:09)
[2020-10-27] MEDS: lisinopriL 20 MG TABLET PO SCH (17:56)
[2020-10-27] MEDS: Melatonin 3 MG TABLET PO SCH (20:03)
[2020-10-27] MEDS: traZODone 50 MG TABLET PO SCH (20:03)
[2020-10-27] MEDS: Budesonide/Formoterol 160/4.5 1 PUFF INH IH SCH (22:51)
[2020-10-28] MEDS: Ipratropium/Albuterol Neb 3 ML IH SCH ×4 (03:21→20:15)
[2020-10-28] MEDS: *HR* Heparin 5,000 UNIT/ML VIAL SQ SCH ×2 (05:42→17:32)
[2020-10-28] MEDS: MethylPREDNISolone 40 MG/ML VIAL IVP SCH (08:12)
[2020-10-28] MEDS: lisinopriL 20 MG TABLET PO SCH (08:13)
[2020-10-28] MEDS: Azithromycin 500 MG in 0.9 % Sodium Chloride 250 ML IVPB SCH (08:13)
[2020-10-28 10:53] LABS: Basophils % 0.2 %; Hematocrit 32.4 % (37.5-50.1); Immature Granulocytes % 0.3 % (0-4); Lymphocytes # 0.3 K/mcL (0.6-4.6); Lymphocytes % 3.4 %; Mean Corpuscular HGB Conc 34.6 g/dL (31.6-35.5); Mean Corpuscular Hemoglobin 33.8 pg (28.0-33.3); Mean Corpuscular Volume 97.9 fL (83.0-100.0); Monocytes # 0.4 K/mcL (0.0-1.3); Platelet Count 247 K/mcL (140-400); Red Blood Count 3.31 M/mcL (4.19-5.50); Red Cell Distribution Width 12.1 % (11.5-14.5); Segmented Neutrophils % 91.1 %
[2020-10-28 10:54] LABS: Hemoglobin 11.2 g/dL (12.9-16.9); White Blood Count 8.8 K/mcL (4.3-11.1)
[2020-10-28] MEDS: Budesonide/Formoterol 160/4.5 1 PUFF INH IH SCH ×2 (10:55→20:15)
[2020-10-28 11:11] LABS: BUN/Creatinine Ratio 24 (6-26); Blood Urea Nitrogen 16 mg/dL (8-23); Calcium 8.9 mg/dL (8.6-10.3); Carbon Dioxide 30 mEq/L (23-29); Chloride 97 mEq/L (98-107); Glucose 194 mg/dL (70-105); Magnesium 1.7 mg/dL (1.6-2.6); Osmolality,Calculated 278 (280-300); Phosphorous 2.2 mg/dL (2.7-4.5); Potassium 4.5 mEq/L (3.5-5.1); Sodium 131 mEq/L (136-145); eGFR For African Americans > 60 (> 60); eGFR For Non-African Americans > 60 (> 60)
[2020-10-28] MEDS ORDERED: *HR* LORazepam 0.5 MG TABLET PO ONE (14:49)
[2020-10-28] MEDS: traZODone 50 MG TABLET PO SCH (19:38)
[2020-10-28] MEDS: Melatonin 3 MG TABLET PO SCH (19:38)
[2020-10-29] MEDS: Ipratropium/Albuterol Neb 3 ML IH SCH ×4 (04:03→21:05)
[2020-10-29 05:10] LABS: Basophils % 0.2 %; Hematocrit 32.3 % (37.5-50.1); Hemoglobin 10.9 g/dL (12.9-16.9); Immature Granulocytes % 0.5 % (0-4); Lymphocytes % 11.1 %; Mean Corpuscular HGB Conc 33.7 g/dL (31.6-35.5); Mean Corpuscular Hemoglobin 33.7 pg (28.0-33.3); Mean Platelet Volume 10.8 fL (9.4-12.4); Monocytes % 11.2 %; Neutrophils # 6.6 K/mcL (1.6-8.9); Platelet Count 232 K/mcL (140-400); Red Blood Count 3.23 M/mcL (4.19-5.50); Red Cell Distribution Width 12.3 % (11.5-14.5); White Blood Count 8.6 K/mcL (4.3-11.1)
[2020-10-29] MEDS: *HR* Heparin 5,000 UNIT/ML VIAL SQ SCH ×2 (05:16→16:07)
[2020-10-29 05:28] LABS: BUN/Creatinine Ratio 27 (6-26); Blood Urea Nitrogen 18 mg/dL (8-23); Calcium 8.9 mg/dL (8.6-10.3); Carbon Dioxide 32 mEq/L (23-29); Chloride 97 mEq/L (98-107); Glucose 122 mg/dL (70-105); Osmolality,Calculated 281 (280-300); Potassium 4.6 mEq/L (3.5-5.1); Sodium 134 mEq/L (136-145); eGFR For African Americans > 60 (> 60); eGFR For Non-African Americans > 60 (> 60)
[2020-10-29] MEDS: lisinopriL 20 MG TABLET PO SCH (08:30)
[2020-10-29] MEDS: MethylPREDNISolone 40 MG/ML VIAL IVP SCH (08:30)
[2020-10-29] MEDS: Azithromycin 500 MG in 0.9 % Sodium Chloride 250 ML IVPB SCH (08:31)
[2020-10-29] MEDS: Benzonatate 100 MG CAPSULE PO PRN ×2 (08:42→21:02)
[2020-10-29] MEDS: Budesonide/Formoterol 160/4.5 1 PUFF INH IH SCH ×2 (10:24→21:06)
[2020-10-29] MEDS: Melatonin 3 MG TABLET PO SCH (20:07)
[2020-10-29] MEDS: traZODone 50 MG TABLET PO SCH (20:07)
[2020-10-30] MEDS: Ipratropium/Albuterol Neb 3 ML IH SCH ×2 (04:12→09:59)
[2020-10-30] MEDS: *HR* Heparin 5,000 UNIT/ML VIAL SQ SCH (05:13)
[2020-10-30] MEDS: Azithromycin 500 MG in 0.9 % Sodium Chloride 250 ML IVPB SCH (07:51)
[2020-10-30] MEDS: MethylPREDNISolone 40 MG/ML VIAL IVP SCH (07:51)
[2020-10-30] MEDS: lisinopriL 20 MG TABLET PO SCH (08:10)
[2020-10-30] MEDS: Budesonide/Formoterol 160/4.5 1 PUFF INH IH SCH (09:59)
[2020-10-30 10:38] VITALS: BP 144/81
[2020-10-30 11:15] LABS: Hematocrit 35.1 % (37.5-50.1); Hemoglobin 11.4 g/dL (12.9-16.9); Mean Corpuscular HGB Conc 32.5 g/dL (31.6-35.5); Mean Corpuscular Hemoglobin 32.9 pg (28.0-33.3); Mean Corpuscular Volume 101.2 fL (83.0-100.0); Mean Platelet Volume 10.5 fL (9.4-12.4); Platelet Count 282 K/mcL (140-400); Red Blood Count 3.47 M/mcL (4.19-5.50); Red Cell Distribution Width 12.5 % (11.5-14.5); White Blood Count 9.3 K/mcL (4.3-11.1)
[2020-10-30 11:53] LABS: BUN/Creatinine Ratio 28 (6-26); Blood Urea Nitrogen 24 mg/dL (8-23); Calcium 9.1 mg/dL (8.6-10.3); Carbon Dioxide 31 mEq/L (23-29); Chloride 96 mEq/L (98-107); Glucose 93 mg/dL (70-105); Osmolality,Calculated 282 (280-300); Phosphorous 4.1 mg/dL (2.7-4.5); Potassium 4.7 mEq/L (3.5-5.1); Sodium 134 mEq/L (136-145); eGFR For African Americans > 60 (> 60); eGFR For Non-African Americans > 60 (> 60)
== END 2020-10-30 15:29 | disposition home or self-care (01) | DRG 190 ==
LOC: 3NENU 01:44 → EMEROOARM 01:44 → 3NENU 08:45
PROVIDERS: ADMIT Internal Medicine; ATTEND Internal Medicine

== ENCOUNTER 2020-11-29 14:18 | Observation (INO) ==
[2020-11-29 14:51] LABS: Basophils # 0.1 K/mcL (0.0-0.2); Basophils % 0.6 %; Eosinophils % 8.3 %; Hematocrit 36.7 % (37.5-50.1); Hemoglobin 12.4 g/dL (12.9-16.9); Immature Granulocytes % 0.2 % (0-4); Lymphocytes # 0.6 K/mcL (0.6-4.6); Lymphocytes % 5.1 %; Mean Corpuscular HGB Conc 33.8 g/dL (31.6-35.5); Mean Corpuscular Hemoglobin 32.8 pg (28.0-33.3); Mean Corpuscular Volume 97.1 fL (83.0-100.0); Mean Platelet Volume 10.5 fL (9.4-12.4); Monocytes # 0.5 K/mcL (0.0-1.3); Monocytes % 4.3 %; Neutrophils # 9.4 K/mcL (1.6-8.9); Platelet Count 389 K/mcL (140-400); Red Blood Count 3.78 M/mcL (4.19-5.50); Red Cell Distribution Width 11.8 % (11.5-14.5); Segmented Neutrophils % 81.5 %; White Blood Count 11.5 K/mcL (4.3-11.1)
[2020-11-29 15:16] LABS: Activated Partial Thrombo Time 26.9 Seconds (26.0-36.0)
[2020-11-29 15:20] LABS: Alanine Aminotransferase 42 Units/L (7-52); Albumin 4.6 g/dL (3.5-5.7); Albumin/Globulin Ratio 1.5 (1.1-2.2); Alkaline Phosphatase 74 Units/L (34-104); Aspartate Amino Transferase 45 Units/L (13-39); BUN/Creatinine Ratio 17 (6-26); Bilirubin,Direct 0.3 mg/dL (0.0-0.2); Bilirubin,Indirect 0.8 mg/dL (0.0-1.0); Bilirubin,Total 1.1 mg/dL (0.3-1.0); Blood Urea Nitrogen 14 mg/dL (8-23); Calcium 9.9 mg/dL (8.6-10.3); Carbon Dioxide 22 mEq/L (23-29); Chloride 85 mEq/L (98-107); Glucose 141 mg/dL (70-105); Osmolality,Calculated 273 (280-300); Potassium 4.6 mEq/L (3.5-5.1); Sodium 130 mEq/L (136-145); Total Protein 7.6 g/dL (6.4-8.9); Troponin I 0.03 ng/mL (< 0.04); eGFR For African Americans > 60 (> 60); eGFR For Non-African Americans > 60 (> 60)
[2020-11-29 15:36] LABS: Platelet Estimate Normal (Normal)
[2020-11-29 15:37] LABS: Anisocytosis 1+ (Not Present); Large Platelets Present (Not Present)
[2020-11-29] MEDS ORDERED: Ipratropium/Albuterol Neb 3 ML IH ONE (16:19)
[2020-11-29] MEDS ORDERED: levoFLOXacin 750 MG/150 ML 750 MG/150 ML BAG IVPB ONE (16:30)
[2020-11-29] MEDS ORDERED: methylPREDNISolone 125 MG/2 ML VIAL IVP ONE (16:30)
[2020-11-29] MEDS ORDERED: 0.9 % Sodium Chloride 1,000 ML IVC ONE (17:52)
[2020-11-29] MEDS ORDERED: Azithromycin 250 MG TABLET PO ONE (19:48)
[2020-11-29] MEDS: hydrALAZINE 10 MG TABLET PO PRN (21:12)
[2020-11-29] MEDS: Budesonide/Formoterol 80/4.5 1 PUFF INH IH SCH (21:30)
[2020-11-29] MEDS ORDERED: Ondansetron 4 MG/2 ML VIAL IVP PRN (22:04)
[2020-11-29] MEDS: traZODone 50 MG TABLET PO PRN (22:06)
[2020-11-29] MEDS: hydrOXYzine pamoate 25 MG CAPSULE PO PRN (22:08)
[2020-11-30 02:56] LABS: Basophils % 0.3 %; Hematocrit 32.7 % (37.5-50.1); Hemoglobin 11.1 g/dL (12.9-16.9); Lymphocytes # 0.2 K/mcL (0.6-4.6); Lymphocytes % 7.8 %; Mean Corpuscular HGB Conc 33.9 g/dL (31.6-35.5); Mean Corpuscular Hemoglobin 32.1 pg (28.0-33.3); Mean Corpuscular Volume 94.5 fL (83.0-100.0); Monocytes # 0.1 K/mcL (0.0-1.3); Monocytes % 2.6 %; Platelet Count 325 K/mcL (140-400); Red Blood Count 3.46 M/mcL (4.19-5.50); Red Cell Distribution Width 11.6 % (11.5-14.5); Segmented Neutrophils % 89.3 %
[2020-11-30 03:05] LABS: Neutrophils # 2.8 K/mcL (1.6-8.9)
[2020-11-30 03:19] LABS: BUN/Creatinine Ratio 21 (6-26); Blood Urea Nitrogen 16 mg/dL (8-23); Calcium 9.1 mg/dL (8.6-10.3); Carbon Dioxide 28 mEq/L (23-29); Chloride 92 mEq/L (98-107); Glucose 191 mg/dL (70-105); Osmolality,Calculated 274 (280-300); Potassium 4.3 mEq/L (3.5-5.1); Sodium 129 mEq/L (136-145); eGFR For African Americans > 60 (> 60); eGFR For Non-African Americans > 60 (> 60)
[2020-11-30 05:26] LABS: White Blood Count 3.1 K/mcL (4.3-11.1)
[2020-11-30] MEDS: hydrOXYzine pamoate 25 MG CAPSULE PO PRN ×2 (05:57→20:04)
[2020-11-30] MEDS: hydrALAZINE 10 MG TABLET PO PRN (05:57)
[2020-11-30] MEDS: *HR* Heparin 5,000 UNIT/ML VIAL SQ SCH ×2 (05:58→17:05)
[2020-11-30] MEDS: Budesonide/Formoterol 80/4.5 1 PUFF INH IH SCH ×2 (07:33→19:32)
[2020-11-30 08:33] LABS: Adenovirus Not Detected (Not Detect); Bordetella Pertussis Not Detected (Not Detect); Chlamydophila pneumoniae Not Detected (Not Detect); Coronavirus 229E Not Detected (Not Detect); Coronavirus HKU1 Not Detected (Not Detect); Coronavirus NL63 Not Detected (Not Detect); Coronavirus OC43 Not Detected (Not Detect); Human Metapneumovirus Not Detected (Not Detect); Human Rhinovirus/Enterovirus Not Detected (Not Detect); Influenza A Subtype 2009 H1 Not Detected (Not Detect); Influenza B Not Detected (Not Detect); Mycoplasma pneumoniae Not Detected (Not Detect); Parainfluenza Virus 1 Not Detected (Not Detect); Parainfluenza Virus 2 Not Detected (Not Detect); Parainfluenza Virus 3 Not Detected (Not Detect); Parainfluenza Virus 4 Not Detected (Not Detect); Respiratory Syncytial Virus Not Detected (Not Detect); SARS-CoV-2 Not Detected (Not Detect)
[2020-11-30] MEDS: Azithromycin 250 MG TABLET PO SCH (09:29)
[2020-11-30] MEDS: MethylPREDNISolone 40 MG/ML VIAL IVP SCH (09:29)
[2020-11-30] MEDS: traZODone 50 MG TABLET PO PRN (20:04)
[2020-12-01 03:31] LABS: BUN/Creatinine Ratio 25 (6-26); Blood Urea Nitrogen 19 mg/dL (8-23); Calcium 9.1 mg/dL (8.6-10.3); Carbon Dioxide 31 mEq/L (23-29); Chloride 98 mEq/L (98-107); Glucose 142 mg/dL (70-105); Osmolality,Calculated 285 (280-300); Potassium 4.6 mEq/L (3.5-5.1); Sodium 135 mEq/L (136-145); eGFR For African Americans > 60 (> 60); eGFR For Non-African Americans > 60 (> 60)
[2020-12-01] MEDS: *HR* Heparin 5,000 UNIT/ML VIAL SQ SCH ×2 (05:34→16:19)
[2020-12-01 06:47] LABS: Basophils % 0.1 %; Eosinophils % 0.1 %; Hematocrit 31.7 % (37.5-50.1); Hemoglobin 10.9 g/dL (12.9-16.9); Immature Granulocytes % 0.4 % (0-4); Lymphocytes # 0.6 K/mcL (0.6-4.6); Lymphocytes % 3.2 %; Mean Corpuscular HGB Conc 34.4 g/dL (31.6-35.5); Mean Corpuscular Hemoglobin 33.9 pg (28.0-33.3); Mean Corpuscular Volume 98.4 fL (83.0-100.0); Mean Platelet Volume 10.7 fL (9.4-12.4); Monocytes # 1.3 K/mcL (0.0-1.3); Monocytes % 6.8 %; Platelet Count 307 K/mcL (140-400); Red Blood Count 3.22 M/mcL (4.19-5.50); Red Cell Distribution Width 11.8 % (11.5-14.5); Segmented Neutrophils % 89.4 %
[2020-12-01 06:49] LABS: Neutrophils # 17.3 K/mcL (1.6-8.9); White Blood Count 19.4 K/mcL (4.3-11.1)
[2020-12-01] MEDS: MethylPREDNISolone 40 MG/ML VIAL IVP SCH (08:19)
[2020-12-01] MEDS: Azithromycin 250 MG TABLET PO SCH (08:21)
[2020-12-01] MEDS: Budesonide/Formoterol 80/4.5 1 PUFF INH IH SCH ×2 (08:37→20:33)
[2020-12-01] MEDS: lisinopriL 20 MG TABLET PO SCH (09:25)
[2020-12-01 13:53] LABS: Bilirubin,Urine Negative (Negative); Blood,Urine Negative (Negative); Clarity,Urine Clear (Clear); Color,Urine Light-Yellow (Yellow); Glucose,Urine (UA) Normal (Normal); Ketones,Urine Negative (Negative); Leukocyte Esterase,Urine Negative (Negative); Nitrite,Urine Negative (Negative); PH,Urine 6.5 pH Units (5.0-8.0); Protein,Urine Negative (Neg-Trace); Specific Gravity,Urine 1.023 (1.010-1.025); Urobilinogen,Urine Normal (Normal)
[2020-12-01] MEDS: traZODone 50 MG TABLET PO PRN (21:55)
[2020-12-01] MEDS: hydrOXYzine pamoate 25 MG CAPSULE PO PRN (21:56)
[2020-12-01] MEDS: Melatonin 3 MG TABLET PO SCH (21:56)
[2020-12-02] MEDS: *HR* Heparin 5,000 UNIT/ML VIAL SQ SCH ×2 (05:41→17:02)
[2020-12-02] MEDS: Azithromycin 250 MG TABLET PO SCH (08:13)
[2020-12-02] MEDS: MethylPREDNISolone 40 MG/ML VIAL IVP SCH (08:13)
[2020-12-02] MEDS: lisinopriL 20 MG TABLET PO SCH (08:13)
[2020-12-02] MEDS: Budesonide/Formoterol 80/4.5 1 PUFF INH IH SCH ×2 (09:15→20:05)
[2020-12-02] MEDS: Melatonin 3 MG TABLET PO SCH (20:22)
[2020-12-02] MEDS: hydrOXYzine pamoate 25 MG CAPSULE PO PRN (20:28)
[2020-12-03] MEDS: hydrALAZINE 10 MG TABLET PO PRN (04:00)
[2020-12-03] MEDS: *HR* Heparin 5,000 UNIT/ML VIAL SQ SCH ×2 (04:02→16:54)
[2020-12-03 05:18] LABS: Hematocrit 34.4 % (37.5-50.1); Hemoglobin 11.1 g/dL (12.9-16.9); Mean Corpuscular HGB Conc 32.3 g/dL (31.6-35.5); Mean Corpuscular Hemoglobin 32.3 pg (28.0-33.3); Mean Platelet Volume 10.5 fL (9.4-12.4); Platelet Count 278 K/mcL (140-400); Red Blood Count 3.44 M/mcL (4.19-5.50); White Blood Count 12.4 K/mcL (4.3-11.1)
[2020-12-03 05:33] LABS: BUN/Creatinine Ratio 36 (6-26); Blood Urea Nitrogen 24 mg/dL (8-23); Calcium 9.4 mg/dL (8.6-10.3); Carbon Dioxide 34 mEq/L (23-29); Chloride 94 mEq/L (98-107); Glucose 89 mg/dL (70-105); Osmolality,Calculated 282 (280-300); Potassium 4.4 mEq/L (3.5-5.1); Sodium 134 mEq/L (136-145); eGFR For African Americans > 60 (> 60); eGFR For Non-African Americans > 60 (> 60)
[2020-12-03] MEDS: Budesonide/Formoterol 80/4.5 1 PUFF INH IH SCH ×2 (08:58→19:33)
[2020-12-03] MEDS: MethylPREDNISolone 40 MG/ML VIAL IVP SCH (09:01)
[2020-12-03] MEDS: lisinopriL 20 MG TABLET PO SCH (09:01)
[2020-12-03] MEDS: Azithromycin 250 MG TABLET PO SCH (09:01)
[2020-12-03] MEDS: Melatonin 3 MG TABLET PO SCH (21:10)
[2020-12-03] MEDS: hydrOXYzine pamoate 25 MG CAPSULE PO PRN (21:11)
[2020-12-04 06:08] LABS: Hematocrit 38.2 % (37.5-50.1); Hemoglobin 12.4 g/dL (12.9-16.9); Mean Corpuscular HGB Conc 32.5 g/dL (31.6-35.5); Mean Corpuscular Hemoglobin 32.5 pg (28.0-33.3); Platelet Count 263 K/mcL (140-400); Red Blood Count 3.82 M/mcL (4.19-5.50); Red Cell Distribution Width 12.1 % (11.5-14.5); White Blood Count 12.3 K/mcL (4.3-11.1)
[2020-12-04] MEDS: *HR* Heparin 5,000 UNIT/ML VIAL SQ SCH ×2 (06:18→16:22)
[2020-12-04 06:28] LABS: BUN/Creatinine Ratio 34 (6-26); Blood Urea Nitrogen 24 mg/dL (8-23); Calcium 9.6 mg/dL (8.6-10.3); Carbon Dioxide 36 mEq/L (23-29); Chloride 90 mEq/L (98-107); Glucose 104 mg/dL (70-105); Osmolality,Calculated 278 (280-300); Potassium 4.7 mEq/L (3.5-5.1); Sodium 132 mEq/L (136-145); eGFR For African Americans > 60 (> 60); eGFR For Non-African Americans > 60 (> 60)
[2020-12-04] MEDS: Budesonide/Formoterol 80/4.5 1 PUFF INH IH SCH ×2 (08:37→20:43)
[2020-12-04] MEDS: predniSONE 20 MG TABLET PO SCH (08:41)
[2020-12-04] MEDS: lisinopriL 20 MG TABLET PO SCH (08:41)
[2020-12-04] MEDS: amLODIPine 5 MG TABLET PO SCH (16:54)
[2020-12-04] MEDS: traZODone 50 MG TABLET PO PRN (21:33)
[2020-12-04] MEDS: Melatonin 3 MG TABLET PO SCH (21:33)
[2020-12-04] MEDS: hydrOXYzine pamoate 25 MG CAPSULE PO PRN (21:34)
[2020-12-05] MEDS: *HR* Heparin 5,000 UNIT/ML VIAL SQ SCH (05:11)
[2020-12-05 07:02] VITALS: BP 168/87
[2020-12-05] MEDS: lisinopriL 20 MG TABLET PO SCH (08:14)
[2020-12-05] MEDS: predniSONE 20 MG TABLET PO SCH (08:15)
[2020-12-05] MEDS: amLODIPine 5 MG TABLET PO SCH (08:15)
[2020-12-05] MEDS: hydrOXYzine pamoate 25 MG CAPSULE PO PRN (08:20)
== END 2020-12-05 09:45 | disposition home health service (06) ==
LOC: 3BNU 14:18 → EMEROOARM 14:18 → 3BNU 18:23
PROVIDERS: ADMIT Internal Medicine; ATTEND Internal Medicine

== ENCOUNTER 2020-12-18 09:20 | Inpatient (IN) ==
[2020-12-18] MEDS ORDERED: Azithromycin 500 MG in 0.9 % Sodium Chloride 250 ML IVPB ONE (09:37)
[2020-12-18] MEDS ORDERED: cefTRIAXone 1,000 MG in Water for inj. (sterile) 10 ML IVP ONE (09:37)
[2020-12-18] MEDS ORDERED: methylPREDNISolone 125 MG/2 ML VIAL IVP ONE (09:37)
[2020-12-18 10:07] LABS: Basophils # 0.1 K/mcL (0.0-0.2); Basophils % 2.1 %; Eosinophils # 0.2 K/mcL (0.0-0.6); Eosinophils % 3.5 %; Hematocrit 34.2 % (37.5-50.1); Hemoglobin 11.2 g/dL (12.9-16.9); Immature Granulocytes % 0.3 % (0-4); Lymphocytes # 1.3 K/mcL (0.6-4.6); Lymphocytes % 20.5 %; Mean Corpuscular HGB Conc 32.7 g/dL (31.6-35.5); Mean Corpuscular Hemoglobin 32.9 pg (28.0-33.3); Mean Corpuscular Volume 100.6 fL (83.0-100.0); Monocytes # 0.9 K/mcL (0.0-1.3); Monocytes % 14.2 %; Neutrophils # 3.7 K/mcL (1.6-8.9); Platelet Count 238 K/mcL (140-400); Red Cell Distribution Width 12.4 % (11.5-14.5); Segmented Neutrophils % 59.4 %; White Blood Count 6.3 K/mcL (4.3-11.1)
[2020-12-18 10:14] LABS: BUN/Creatinine Ratio 13 (6-26); Blood Urea Nitrogen 8 mg/dL (8-23); Calcium 8.7 mg/dL (8.6-10.3); Carbon Dioxide 32 mEq/L (23-29); Chloride 94 mEq/L (98-107); Glucose 84 mg/dL (70-105); Osmolality,Calculated 274 (280-300); Potassium 4.1 mEq/L (3.5-5.1); Sodium 133 mEq/L (136-145); Troponin I < 0.03 ng/mL (< 0.04); eGFR For African Americans > 60 (> 60); eGFR For Non-African Americans > 60 (> 60)
[2020-12-18 10:26] LABS: VBG HCO3 34 mEq/L (21-27); VBG PCO2 66 mmHg (41-51); VBG PH 7.32 pH Units (7.32-7.42); VBG PO2 39 mmHg (25-50)
[2020-12-18 12:07] LABS: Adenovirus Not Detected (Not Detect); Bordetella Pertussis Not Detected (Not Detect); Chlamydophila pneumoniae Not Detected (Not Detect); Coronavirus 229E Not Detected (Not Detect); Coronavirus HKU1 Not Detected (Not Detect); Coronavirus NL63 Not Detected (Not Detect); Coronavirus OC43 Not Detected (Not Detect); Human Metapneumovirus Not Detected (Not Detect); Human Rhinovirus/Enterovirus Not Detected (Not Detect); Influenza A Subtype 2009 H1 Not Detected (Not Detect); Influenza B Not Detected (Not Detect); Mycoplasma pneumoniae Not Detected (Not Detect); Parainfluenza Virus 1 Not Detected (Not Detect); Parainfluenza Virus 2 Not Detected (Not Detect); Parainfluenza Virus 3 Not Detected (Not Detect); Parainfluenza Virus 4 Not Detected (Not Detect); Respiratory Syncytial Virus Not Detected (Not Detect); SARS-CoV-2 Not Detected (Not Detect)
[2020-12-18] MEDS ORDERED: Naloxone 0.4 MG/ML INJ IVP PRN (12:09)
[2020-12-18] MEDS: Ipratropium/Albuterol Neb 3 ML IH SCH ×2 (16:12→21:56)
[2020-12-18] MEDS: *HR* Heparin 5,000 UNIT/ML VIAL SQ SCH (17:31)
[2020-12-18] MEDS: traZODone 50 MG TABLET PO SCH (21:43)
[2020-12-18] MEDS: amLODIPine 5 MG TABLET PO SCH (21:44)
[2020-12-18] MEDS: Budesonide/Formoterol 160/4.5 1 PUFF INH IH SCH (21:56)
[2020-12-19] MEDS: Ipratropium/Albuterol Neb 3 ML IH SCH (03:06)
[2020-12-19 05:35] LABS: Basophils % 0.2 %; Hematocrit 28.3 % (37.5-50.1); Immature Granulocytes % 0.5 % (0-4); Lymphocytes # 0.2 K/mcL (0.6-4.6); Lymphocytes % 2.6 %; Mean Corpuscular HGB Conc 32.9 g/dL (31.6-35.5); Mean Corpuscular Hemoglobin 32.9 pg (28.0-33.3); Monocytes # 0.6 K/mcL (0.0-1.3); Nucleated Red Blood Cells 0.3 /100 WBC (0); Platelet Count 248 K/mcL (140-400); Red Blood Count 2.83 M/mcL (4.19-5.50); Red Cell Distribution Width 12.5 % (11.5-14.5); Segmented Neutrophils % 87.7 %; White Blood Count 6.4 K/mcL (4.3-11.1)
[2020-12-19] MEDS: *HR* Heparin 5,000 UNIT/ML VIAL SQ SCH ×2 (05:39→17:30)
[2020-12-19 05:43] LABS: Hemoglobin 9.3 g/dL (12.9-16.9); Neutrophils # 5.6 K/mcL (1.6-8.9)
[2020-12-19] MEDS: Budesonide/Formoterol 160/4.5 1 PUFF INH IH SCH ×4 (08:01→22:38)
[2020-12-19] MEDS: Levalbuterol Neb 1.25 MG/3 ML IH SCH ×4 (08:21→22:37)
[2020-12-19] MEDS ORDERED: amLODIPine 5 MG TABLET PO SCH (09:00)
[2020-12-19] MEDS: MethylPREDNISolone 40 MG/ML VIAL IVP SCH ×2 (09:31→18:14)
[2020-12-19] MEDS: lisinopriL 20 MG TABLET PO SCH (09:31)
[2020-12-19] MEDS: amLODIPine 5 MG TABLET PO SCH (09:32)
[2020-12-19] MEDS: Azithromycin 250 MG TABLET PO SCH (09:32)
[2020-12-19] MEDS: Melatonin 3 MG TABLET PO SCH (20:31)
[2020-12-19] MEDS: traZODone 50 MG TABLET PO SCH (20:38)
[2020-12-20 03:15] LABS: % Iron Saturation 14 % (20-55); Iron 48 mcg/dL (65-175); Transferrin 242 mg/dL (203-362)
[2020-12-20 03:32] LABS: Ferritin 78 ng/mL (20-250)
[2020-12-20] MEDS: Levalbuterol Neb 1.25 MG/3 ML IH SCH ×4 (03:58→22:42)
[2020-12-20] MEDS: *HR* Heparin 5,000 UNIT/ML VIAL SQ SCH ×2 (05:08→17:42)
[2020-12-20] MEDS: Budesonide/Formoterol 160/4.5 1 PUFF INH IH SCH ×4 (07:45→22:43)
[2020-12-20] MEDS: amLODIPine 5 MG TABLET PO SCH (08:56)
[2020-12-20] MEDS: Azithromycin 250 MG TABLET PO SCH (08:56)
[2020-12-20] MEDS: lisinopriL 20 MG TABLET PO SCH (08:56)
[2020-12-20] MEDS ORDERED: predniSONE 20 MG TABLET PO SCH (09:00)
[2020-12-20] MEDS: MethylPREDNISolone 40 MG/ML VIAL IVP SCH ×2 (11:40→17:42)
[2020-12-20] MEDS: Melatonin 3 MG TABLET PO SCH (20:42)
[2020-12-20] MEDS: traZODone 50 MG TABLET PO SCH (20:42)
[2020-12-21 02:47] LABS: Basophils % 0.1 %; Hematocrit 30.4 % (37.5-50.1); Hemoglobin 9.7 g/dL (12.9-16.9); Immature Granulocytes % 2.3 % (0-4); Lymphocytes # 0.2 K/mcL (0.6-4.6); Lymphocytes % 1.5 %; Mean Corpuscular HGB Conc 31.9 g/dL (31.6-35.5); Mean Corpuscular Volume 103.4 fL (83.0-100.0); Mean Platelet Volume 10.7 fL (9.4-12.4); Monocytes # 0.5 K/mcL (0.0-1.3); Monocytes % 3.4 %; Platelet Count 245 K/mcL (140-400); Red Blood Count 2.94 M/mcL (4.19-5.50); Red Cell Distribution Width 13.4 % (11.5-14.5); Segmented Neutrophils % 92.7 %; White Blood Count 15.1 K/mcL (4.3-11.1)
[2020-12-21 03:05] LABS: BUN/Creatinine Ratio 41 (6-26); Blood Urea Nitrogen 26 mg/dL (8-23); Calcium 8.5 mg/dL (8.6-10.3); Carbon Dioxide 31 mEq/L (23-29); Chloride 99 mEq/L (98-107); Glucose 229 mg/dL (70-105); Magnesium 1.8 mg/dL (1.6-2.6); Osmolality,Calculated 292 (280-300); Phosphorous 2.6 mg/dL (2.7-4.5); Potassium 4.6 mEq/L (3.5-5.1); Sodium 135 mEq/L (136-145); eGFR For African Americans > 60 (> 60); eGFR For Non-African Americans > 60 (> 60)
[2020-12-21] MEDS: MethylPREDNISolone 40 MG/ML VIAL IVP SCH ×3 (03:41→18:10)
[2020-12-21] MEDS: Levalbuterol Neb 1.25 MG/3 ML IH SCH (04:54)
[2020-12-21] MEDS: *HR* Heparin 5,000 UNIT/ML VIAL SQ SCH ×2 (05:05→16:32)
[2020-12-21] MEDS: Budesonide/Formoterol 160/4.5 1 PUFF INH IH SCH ×4 (08:08→20:00)
[2020-12-21] MEDS: Azithromycin 250 MG TABLET PO SCH (08:26)
[2020-12-21] MEDS: lisinopriL 20 MG TABLET PO SCH (08:26)
[2020-12-21] MEDS: amLODIPine 5 MG TABLET PO SCH (08:26)
[2020-12-21] MEDS: Ipratropium/Albuterol Neb 3 ML IH SCH ×5 (09:57→23:44)
[2020-12-21] MEDS: traZODone 50 MG TABLET PO SCH (20:36)
[2020-12-21] MEDS: Melatonin 3 MG TABLET PO SCH (20:36)
[2020-12-22 00:50] LABS: Basophils % 0.1 %; Hematocrit 30.5 % (37.5-50.1); Hemoglobin 9.9 g/dL (12.9-16.9); Lymphocytes # 0.3 K/mcL (0.6-4.6); Lymphocytes % 2.2 %; Mean Corpuscular HGB Conc 32.5 g/dL (31.6-35.5); Mean Corpuscular Hemoglobin 33.4 pg (28.0-33.3); Mean Platelet Volume 10.1 fL (9.4-12.4); Monocytes # 0.6 K/mcL (0.0-1.3); Platelet Count 294 K/mcL (140-400); Red Blood Count 2.96 M/mcL (4.19-5.50); Red Cell Distribution Width 13.5 % (11.5-14.5); Segmented Neutrophils % 91.7 %; White Blood Count 14.9 K/mcL (4.3-11.1)
[2020-12-22 00:56] LABS: Neutrophils # 13.7 K/mcL (1.6-8.9)
[2020-12-22 01:08] LABS: BUN/Creatinine Ratio 45 (6-26); Blood Urea Nitrogen 32 mg/dL (8-23); Calcium 8.5 mg/dL (8.6-10.3); Carbon Dioxide 31 mEq/L (23-29); Chloride 97 mEq/L (98-107); Glucose 189 mg/dL (70-105); Osmolality,Calculated 292 (280-300); Phosphorous 3.5 mg/dL (2.7-4.5); Potassium 4.3 mEq/L (3.5-5.1); Sodium 135 mEq/L (136-145); eGFR For African Americans > 60 (> 60); eGFR For Non-African Americans > 60 (> 60)
[2020-12-22 01:11] LABS: Platelet Estimate Normal (Normal)
[2020-12-22] MEDS: MethylPREDNISolone 40 MG/ML VIAL IVP SCH (03:23)
[2020-12-22] MEDS: Ipratropium/Albuterol Neb 3 ML IH SCH ×3 (03:39→11:26)
[2020-12-22] MEDS: *HR* Heparin 5,000 UNIT/ML VIAL SQ SCH (05:07)
[2020-12-22] MEDS: Budesonide/Formoterol 160/4.5 1 PUFF INH IH SCH ×2 (07:29→07:30)
[2020-12-22] MEDS ORDERED: predniSONE 20 MG TABLET PO SCH (09:00)
[2020-12-22 09:13] VITALS: BP 158/88
[2020-12-22] MEDS: Azithromycin 250 MG TABLET PO SCH (09:57)
[2020-12-22] MEDS: lisinopriL 20 MG TABLET PO SCH (09:58)
[2020-12-22] MEDS: amLODIPine 5 MG TABLET PO SCH (09:59)
== END 2020-12-22 14:21 | disposition home or self-care (01) | DRG 190 ==
LOC: 3ANU 09:20 → EMEROOARM 09:20 → SUATTDRO 11:36 → 3ANU 12:05
PROVIDERS: ADMIT Student in an Organized Health Care Education/Training Program; ATTEND Internal Medicine

== ENCOUNTER 2021-01-04 12:42 | Inpatient (IN) ==
[2021-01-04] MEDS ORDERED: Azithromycin 500 MG in 0.9 % Sodium Chloride 250 ML IVPB ONE (12:47)
[2021-01-04] MEDS ORDERED: methylPREDNISolone 125 MG/2 ML VIAL IVP ONE (12:47)
[2021-01-04] MEDS ORDERED: cefTRIAXone 1,000 MG in Water for inj. (sterile) 10 ML IVP ONE (12:47)
[2021-01-04] MEDS ORDERED: Ipratropium/Albuterol Neb 3 ML IH ONE (12:48)
[2021-01-04 13:13] LABS: Basophils # 0.1 K/mcL (0.0-0.2); Basophils % 0.7 %; Eosinophils % 0.3 %; Hematocrit 37.6 % (37.5-50.1); Hemoglobin 12.5 g/dL (12.9-16.9); Immature Granulocytes % 0.3 % (0-4); Lymphocytes # 1.3 K/mcL (0.6-4.6); Lymphocytes % 11.2 %; Mean Corpuscular HGB Conc 33.2 g/dL (31.6-35.5); Mean Corpuscular Hemoglobin 33.3 pg (28.0-33.3); Mean Corpuscular Volume 100.3 fL (83.0-100.0); Mean Platelet Volume 9.8 fL (9.4-12.4); Monocytes # 1.4 K/mcL (0.0-1.3); Monocytes % 11.8 %; Platelet Count 240 K/mcL (140-400); Red Blood Count 3.75 M/mcL (4.19-5.50); Red Cell Distribution Width 13.9 % (11.5-14.5); Segmented Neutrophils % 75.7 %; White Blood Count 11.9 K/mcL (4.3-11.1)
[2021-01-04 13:31] LABS: BUN/Creatinine Ratio 13 (6-26); Blood Urea Nitrogen 7 mg/dL (8-23); Calcium 8.7 mg/dL (8.6-10.3); Carbon Dioxide 30 mEq/L (23-29); Chloride 94 mEq/L (98-107); Glucose 89 mg/dL (70-105); Osmolality,Calculated 271 (280-300); Potassium 4.3 mEq/L (3.5-5.1); Sodium 132 mEq/L (136-145); eGFR For African Americans > 60 (> 60); eGFR For Non-African Americans > 60 (> 60)
[2021-01-04 13:32] LABS: Troponin I < 0.03 ng/mL (< 0.04)
[2021-01-04 14:16] LABS: Acetaminophen < 10 mcg/mL (10-20); Ethanol 289 mg/dL (Less than 10); Salicylate < 2.5 mg/dL (15.0-30.0)
[2021-01-04 14:22] LABS: Amphetamine Screen,Urine Negative ng/mL (Cutoff=1000); Barbiturate Screen,Urine Negative ng/mL (Cutoff=200); Benzodiazepines Screen,Urine Negative ng/mL (Cutoff=200); Cannabinoid Screen,Urine Positive ng/mL (Cutoff = 50); Cocaine Screen,Urine Negative ng/mL (Cutoff= 300); Opiate Screen,Urine Negative ng/mL (Cutoff=300); Phencyclidine Screen,Urine Negative ng/mL (Cutoff=25)
[2021-01-04] MEDS ORDERED: Naloxone 0.4 MG/ML INJ IVP PRN (15:41)
[2021-01-04] MEDS ORDERED: *HR* LORazepam 2 MG/ML VIAL IVP PRN ×2 (15:53)
[2021-01-04] MEDS: Ipratropium/Albuterol Neb 3 ML IH SCH ×2 (16:50→20:28)
[2021-01-04] MEDS: *HR* LORazepam 2 MG/ML VIAL IVP PRN ×2 (17:33→21:58)
[2021-01-04] MEDS: traZODone 50 MG TABLET PO SCH (20:47)
[2021-01-04] MEDS: Budesonide/Formoterol 160/4.5 1 PUFF INH IH SCH (22:01)
[2021-01-04] MEDS: Levalbuterol Neb 1.25 MG/3 ML IH SCH (23:32)
[2021-01-05] MEDS: Levalbuterol Neb 1.25 MG/3 ML IH SCH ×6 (03:48→23:21)
[2021-01-05 03:59] LABS: Basophils % 0.2 %; Hematocrit 32.3 % (37.5-50.1); Hemoglobin 10.8 g/dL (12.9-16.9); Immature Granulocytes % 0.6 % (0-4); Lymphocytes # 0.2 K/mcL (0.6-4.6); Lymphocytes % 4.8 %; Mean Corpuscular HGB Conc 33.4 g/dL (31.6-35.5); Mean Corpuscular Hemoglobin 33.5 pg (28.0-33.3); Mean Corpuscular Volume 100.3 fL (83.0-100.0); Mean Platelet Volume 10.3 fL (9.4-12.4); Monocytes # 0.2 K/mcL (0.0-1.3); Monocytes % 3.4 %; Neutrophils # 4.6 K/mcL (1.6-8.9); Platelet Count 204 K/mcL (140-400); Red Blood Count 3.22 M/mcL (4.19-5.50); Red Cell Distribution Width 13.5 % (11.5-14.5); White Blood Count 5.1 K/mcL (4.3-11.1)
[2021-01-05 04:13] LABS: BUN/Creatinine Ratio 34 (6-26); Blood Urea Nitrogen 20 mg/dL (8-23); Calcium 8.9 mg/dL (8.6-10.3); Carbon Dioxide 28 mEq/L (23-29); Chloride 98 mEq/L (98-107); Glucose 194 mg/dL (70-105); Osmolality,Calculated 288 (280-300); Potassium 4.2 mEq/L (3.5-5.1); Sodium 135 mEq/L (136-145); eGFR For African Americans > 60 (> 60); eGFR For Non-African Americans > 60 (> 60)
[2021-01-05] MEDS: MethylPREDNISolone 40 MG/ML VIAL IVP SCH ×2 (05:25→17:38)
[2021-01-05] MEDS: Budesonide/Formoterol 160/4.5 1 PUFF INH IH SCH ×2 (07:25→19:55)
[2021-01-05] MEDS: lisinopriL 20 MG TABLET PO SCH (09:13)
[2021-01-05] MEDS: amLODIPine 5 MG TABLET PO SCH (09:13)
[2021-01-05] MEDS: Azithromycin 500 MG in 0.9 % Sodium Chloride 250 ML IVPB SCH (17:33)
[2021-01-05] MEDS: Melatonin 3 MG TABLET PO PRN (19:52)
[2021-01-05] MEDS: traZODone 50 MG TABLET PO SCH (19:52)
[2021-01-06] MEDS: Levalbuterol Neb 1.25 MG/3 ML IH SCH ×6 (04:08→23:39)
[2021-01-06] MEDS: MethylPREDNISolone 40 MG/ML VIAL IVP SCH (05:18)
[2021-01-06 05:34] LABS: Basophils % 0.1 %; Hematocrit 29.2 % (37.5-50.1); Hemoglobin 9.5 g/dL (12.9-16.9); Lymphocytes # 0.3 K/mcL (0.6-4.6); Lymphocytes % 1.6 %; Mean Corpuscular HGB Conc 32.5 g/dL (31.6-35.5); Mean Corpuscular Hemoglobin 33.6 pg (28.0-33.3); Mean Corpuscular Volume 103.2 fL (83.0-100.0); Mean Platelet Volume 10.3 fL (9.4-12.4); Monocytes % 5.5 %; Platelet Count 210 K/mcL (140-400); Red Blood Count 2.83 M/mcL (4.19-5.50); Red Cell Distribution Width 14.2 % (11.5-14.5); Segmented Neutrophils % 91.8 %
[2021-01-06 05:45] LABS: BUN/Creatinine Ratio 31 (6-26); Blood Urea Nitrogen 18 mg/dL (8-23); Calcium 8.7 mg/dL (8.6-10.3); Carbon Dioxide 30 mEq/L (23-29); Chloride 100 mEq/L (98-107); Glucose 195 mg/dL (70-105); Osmolality,Calculated 291 (280-300); Potassium 4.3 mEq/L (3.5-5.1); Sodium 137 mEq/L (136-145); eGFR For African Americans > 60 (> 60); eGFR For Non-African Americans > 60 (> 60)
[2021-01-06 05:58] LABS: Neutrophils # 16.5 K/mcL (1.6-8.9)
[2021-01-06] MEDS: Budesonide/Formoterol 160/4.5 1 PUFF INH IH SCH ×2 (07:41→19:17)
[2021-01-06] MEDS: amLODIPine 5 MG TABLET PO SCH (10:02)
[2021-01-06] MEDS: lisinopriL 20 MG TABLET PO SCH (10:02)
[2021-01-06] MEDS: Azithromycin 500 MG in 0.9 % Sodium Chloride 250 ML IVPB SCH (16:17)
[2021-01-06] MEDS: Melatonin 3 MG TABLET PO PRN (20:10)
[2021-01-06] MEDS: traZODone 50 MG TABLET PO SCH (20:11)
[2021-01-07] MEDS: Levalbuterol Neb 1.25 MG/3 ML IH SCH ×6 (04:04→23:04)
[2021-01-07 05:46] LABS: Basophils % 0.1 %; Hematocrit 31.7 % (37.5-50.1); Hemoglobin 10.1 g/dL (12.9-16.9); Immature Granulocytes % 0.8 % (0-4); Lymphocytes % 5.4 %; Mean Corpuscular HGB Conc 31.9 g/dL (31.6-35.5); Mean Corpuscular Hemoglobin 33.2 pg (28.0-33.3); Mean Corpuscular Volume 104.3 fL (83.0-100.0); Mean Platelet Volume 10.2 fL (9.4-12.4); Monocytes # 0.8 K/mcL (0.0-1.3); Monocytes % 4.8 %; Neutrophils # 15.7 K/mcL (1.6-8.9); Platelet Count 219 K/mcL (140-400); Red Blood Count 3.04 M/mcL (4.19-5.50); Red Cell Distribution Width 14.6 % (11.5-14.5); Segmented Neutrophils % 88.9 %; White Blood Count 17.7 K/mcL (4.3-11.1)
[2021-01-07 06:05] LABS: BUN/Creatinine Ratio 33 (6-26); Blood Urea Nitrogen 22 mg/dL (8-23); Calcium 8.8 mg/dL (8.6-10.3); Carbon Dioxide 34 mEq/L (23-29); Chloride 96 mEq/L (98-107); Glucose 154 mg/dL (70-105); Osmolality,Calculated 286 (280-300); Potassium 4.4 mEq/L (3.5-5.1); Sodium 135 mEq/L (136-145); eGFR For African Americans > 60 (> 60); eGFR For Non-African Americans > 60 (> 60)
[2021-01-07] MEDS: Budesonide/Formoterol 160/4.5 1 PUFF INH IH SCH ×2 (07:22→20:00)
[2021-01-07] MEDS: lisinopriL 20 MG TABLET PO SCH (07:46)
[2021-01-07] MEDS: amLODIPine 5 MG TABLET PO SCH (07:46)
[2021-01-07] MEDS ORDERED: MethylPREDNISolone 40 MG/ML VIAL IVP SCH (09:00)
[2021-01-07] MEDS: Azithromycin 500 MG in 0.9 % Sodium Chloride 250 ML IVPB SCH (18:14)
[2021-01-07] MEDS: traZODone 50 MG TABLET PO SCH (21:39)
[2021-01-07] MEDS: Melatonin 3 MG TABLET PO PRN (21:39)
[2021-01-08 02:12] LABS: Hematocrit 31.9 % (37.5-50.1); Hemoglobin 10.3 g/dL (12.9-16.9); Mean Corpuscular HGB Conc 32.3 g/dL (31.6-35.5); Mean Corpuscular Hemoglobin 33.7 pg (28.0-33.3); Mean Corpuscular Volume 104.2 fL (83.0-100.0); Mean Platelet Volume 10.5 fL (9.4-12.4); Platelet Count 233 K/mcL (140-400); Red Blood Count 3.06 M/mcL (4.19-5.50); Red Cell Distribution Width 14.6 % (11.5-14.5); White Blood Count 16.9 K/mcL (4.3-11.1)
[2021-01-08 02:32] LABS: Alanine Aminotransferase 15 Units/L (7-52); Albumin 3.8 g/dL (3.5-5.7); Albumin/Globulin Ratio 1.4 (1.1-2.2); Alkaline Phosphatase 60 Units/L (34-104); Aspartate Amino Transferase 15 Units/L (13-39); BUN/Creatinine Ratio 40 (6-26); Bilirubin,Total 0.3 mg/dL (0.3-1.0); Blood Urea Nitrogen 24 mg/dL (8-23); Carbon Dioxide 32 mEq/L (23-29); Chloride 95 mEq/L (98-107); Globulin 2.7 g/dL (2.4-3.5); Glucose 117 mg/dL (70-105); Osmolality,Calculated 283 (280-300); Potassium 4.5 mEq/L (3.5-5.1); Sodium 134 mEq/L (136-145); Total Protein 6.5 g/dL (6.4-8.9); eGFR For African Americans > 60 (> 60); eGFR For Non-African Americans > 60 (> 60)
[2021-01-08] MEDS: Levalbuterol Neb 1.25 MG/3 ML IH SCH ×6 (03:49→23:40)
[2021-01-08] MEDS: *HR* Enoxaparin 40 MG/0.4 ML SYRINGE SQ SCH (05:40)
[2021-01-08] MEDS: Budesonide/Formoterol 160/4.5 1 PUFF INH IH SCH ×2 (07:49→19:33)
[2021-01-08] MEDS: amLODIPine 5 MG TABLET PO SCH (09:19)
[2021-01-08] MEDS: lisinopriL 20 MG TABLET PO SCH (09:19)
[2021-01-08] MEDS: predniSONE 20 MG TABLET PO SCH (09:20)
[2021-01-08] MEDS ORDERED: amLODIPine 5 MG TABLET PO ONE ×2 (12:53→13:00)
[2021-01-08] MEDS: Azithromycin 500 MG in 0.9 % Sodium Chloride 250 ML IVPB SCH (17:00)
[2021-01-08] MEDS: traZODone 50 MG TABLET PO SCH (20:18)
[2021-01-08] MEDS: Melatonin 3 MG TABLET PO PRN (20:18)
[2021-01-09] MEDS: Levalbuterol Neb 1.25 MG/3 ML IH SCH ×6 (03:37→23:18)
[2021-01-09 04:14] LABS: Hematocrit 31.8 % (37.5-50.1); Hemoglobin 10.5 g/dL (12.9-16.9); Mean Corpuscular Hemoglobin 33.9 pg (28.0-33.3); Mean Corpuscular Volume 102.6 fL (83.0-100.0); Mean Platelet Volume 10.7 fL (9.4-12.4); Platelet Count 203 K/mcL (140-400); Red Cell Distribution Width 14.6 % (11.5-14.5); White Blood Count 10.8 K/mcL (4.3-11.1)
[2021-01-09 04:27] LABS: Alanine Aminotransferase 16 Units/L (7-52); Albumin 3.7 g/dL (3.5-5.7); Albumin/Globulin Ratio 1.4 (1.1-2.2); Alkaline Phosphatase 60 Units/L (34-104); Aspartate Amino Transferase 12 Units/L (13-39); BUN/Creatinine Ratio 46 (6-26); Bilirubin,Total 0.4 mg/dL (0.3-1.0); Blood Urea Nitrogen 25 mg/dL (8-23); Calcium 8.9 mg/dL (8.6-10.3); Carbon Dioxide 31 mEq/L (23-29); Chloride 97 mEq/L (98-107); Globulin 2.7 g/dL (2.4-3.5); Glucose 103 mg/dL (70-105); Osmolality,Calculated 283 (280-300); Potassium 4.3 mEq/L (3.5-5.1); Sodium 134 mEq/L (136-145); Total Protein 6.4 g/dL (6.4-8.9); eGFR For African Americans > 60 (> 60); eGFR For Non-African Americans > 60 (> 60)
[2021-01-09] MEDS: *HR* Enoxaparin 40 MG/0.4 ML SYRINGE SQ SCH ×2 (05:03→23:26)
[2021-01-09] MEDS: Budesonide/Formoterol 160/4.5 1 PUFF INH IH SCH ×2 (07:51→20:01)
[2021-01-09] MEDS: predniSONE 20 MG TABLET PO SCH (08:43)
[2021-01-09] MEDS: lisinopriL 20 MG TABLET PO SCH (08:43)
[2021-01-09] MEDS: amLODIPine 5 MG TABLET PO SCH (08:44)
[2021-01-09] MEDS: Azithromycin 500 MG in 0.9 % Sodium Chloride 250 ML IVPB SCH (15:05)
[2021-01-09] MEDS: traZODone 50 MG TABLET PO SCH (19:48)
[2021-01-09] MEDS: Melatonin 3 MG TABLET PO PRN (19:48)
[2021-01-10] MEDS: Levalbuterol Neb 1.25 MG/3 ML IH SCH ×2 (03:28→08:08)
[2021-01-10 06:04] LABS: Hemoglobin 10.3 g/dL (12.9-16.9); Mean Corpuscular HGB Conc 32.2 g/dL (31.6-35.5); Mean Corpuscular Hemoglobin 33.6 pg (28.0-33.3); Mean Corpuscular Volume 104.2 fL (83.0-100.0); Mean Platelet Volume 10.7 fL (9.4-12.4); Platelet Count 215 K/mcL (140-400); Red Blood Count 3.07 M/mcL (4.19-5.50); Red Cell Distribution Width 14.6 % (11.5-14.5); White Blood Count 8.9 K/mcL (4.3-11.1)
[2021-01-10 06:15] LABS: Alanine Aminotransferase 17 Units/L (7-52); Albumin 3.7 g/dL (3.5-5.7); Albumin/Globulin Ratio 1.4 (1.1-2.2); Alkaline Phosphatase 54 Units/L (34-104); Aspartate Amino Transferase 14 Units/L (13-39); BUN/Creatinine Ratio 44 (6-26); Bilirubin,Total 0.4 mg/dL (0.3-1.0); Blood Urea Nitrogen 27 mg/dL (8-23); Calcium 8.8 mg/dL (8.6-10.3); Carbon Dioxide 31 mEq/L (23-29); Chloride 95 mEq/L (98-107); Globulin 2.6 g/dL (2.4-3.5); Glucose 100 mg/dL (70-105); Osmolality,Calculated 283 (280-300); Potassium 4.3 mEq/L (3.5-5.1); Sodium 134 mEq/L (136-145); Total Protein 6.3 g/dL (6.4-8.9); eGFR For African Americans > 60 (> 60); eGFR For Non-African Americans > 60 (> 60)
[2021-01-10 07:08] VITALS: BP 145/87
[2021-01-10] MEDS: Budesonide/Formoterol 160/4.5 1 PUFF INH IH SCH (08:08)
[2021-01-10] MEDS: predniSONE 20 MG TABLET PO SCH (08:55)
[2021-01-10] MEDS: amLODIPine 5 MG TABLET PO SCH (08:55)
[2021-01-10] MEDS: lisinopriL 20 MG TABLET PO SCH (08:55)
== END 2021-01-10 10:28 | DRG 191 ==
LOC: 3BNU 12:42 → EMEROOARM 12:42 → SUATTDRO 15:46 → 3BNU 16:34
PROVIDERS: ADMIT Internal Medicine; ATTEND Registered Nurse

== ENCOUNTER 2021-09-04 10:12 | Observation (INO) ==
[2021-09-04 12:02] LABS: Basophils # 0.1 K/mcL (0.0-0.2); Basophils % 0.9 %; Eosinophils # 0.1 K/mcL (0.0-0.6); Eosinophils % 0.6 %; Hematocrit 28.5 % (37.5-50.1); Hemoglobin 9.7 g/dL (12.9-16.9); Immature Granulocytes % 1.1 % (0-4); Lymphocytes % 7.9 %; Mean Corpuscular Hemoglobin 32.8 pg (28.0-33.3); Mean Corpuscular Volume 96.3 fL (83.0-100.0); Mean Platelet Volume 10.4 fL (9.4-12.4); Monocytes # 0.8 K/mcL (0.0-1.3); Monocytes % 6.6 %; Neutrophils # 10.5 K/mcL (1.6-8.9); Platelet Count 288 K/mcL (140-400); Red Blood Count 2.96 M/mcL (4.19-5.50); Red Cell Distribution Width 12.6 % (11.5-14.5); Segmented Neutrophils % 82.9 %; White Blood Count 12.6 K/mcL (4.3-11.1)
[2021-09-04 12:37] LABS: BUN/Creatinine Ratio 8 (6-26); Blood Urea Nitrogen 7 mg/dL (8-23); Carbon Dioxide 31 mEq/L (23-29); Chloride 97 mEq/L (98-107); Glucose 112 mg/dL (70-105); Osmolality,Calculated 283 (280-300); Potassium 4.5 mEq/L (3.5-5.1); Sodium 137 mEq/L (136-145); Troponin I < 0.03 ng/mL (< 0.04); eGFR For African Americans > 60 (> 60); eGFR For Non-African Americans > 60 (> 60)
[2021-09-04 13:00] LABS: Influenza A PCR Negative (Negative); Influenza B PCR Negative (Negative); Resp. Syncytial Virus PCR Negative (Negative)
[2021-09-04 13:11] LABS: SARS-CoV-2 by PCR (In House) Negative (Negative)
[2021-09-04] MEDS ORDERED: Ipratropium/Albuterol Neb 3 ML IH ONE (13:38)
[2021-09-04] MEDS ORDERED: Naloxone 0.4 MG/ML INJ IVP PRN (15:35)
[2021-09-04] MEDS: *HR* Heparin 5,000 UNIT/ML VIAL SQ SCH (18:28)
[2021-09-05 04:33] LABS: Basophils # 0.1 K/mcL (0.0-0.2); Basophils % 1.3 %; Eosinophils # 0.3 K/mcL (0.0-0.6); Eosinophils % 3.9 %; Hematocrit 29.9 % (37.5-50.1); Hemoglobin 9.7 g/dL (12.9-16.9); Immature Granulocytes % 0.7 % (0-4); Lymphocytes # 1.4 K/mcL (0.6-4.6); Lymphocytes % 16.7 %; Mean Corpuscular HGB Conc 32.4 g/dL (31.6-35.5); Mean Corpuscular Hemoglobin 31.5 pg (28.0-33.3); Mean Corpuscular Volume 97.1 fL (83.0-100.0); Mean Platelet Volume 9.5 fL (9.4-12.4); Monocytes # 0.8 K/mcL (0.0-1.3); Monocytes % 9.6 %; Neutrophils # 5.5 K/mcL (1.6-8.9); Platelet Count 350 K/mcL (140-400); Red Blood Count 3.08 M/mcL (4.19-5.50); Red Cell Distribution Width 12.9 % (11.5-14.5); Segmented Neutrophils % 67.8 %; White Blood Count 8.2 K/mcL (4.3-11.1)
[2021-09-05 04:58] LABS: BUN/Creatinine Ratio 8 (6-26); Blood Urea Nitrogen 8 mg/dL (8-23); Calcium 8.9 mg/dL (8.6-10.3); Carbon Dioxide 32 mEq/L (23-29); Chloride 99 mEq/L (98-107); Glucose 132 mg/dL (70-105); Osmolality,Calculated 284 (280-300); Potassium 4.3 mEq/L (3.5-5.1); Sodium 137 mEq/L (136-145); eGFR For African Americans > 60 (> 60); eGFR For Non-African Americans > 60 (> 60)
[2021-09-05] MEDS: *HR* Heparin 5,000 UNIT/ML VIAL SQ SCH ×2 (06:17→18:45)
[2021-09-05] MEDS: Ipratropium/Albuterol Neb 3 ML IH PRN ×2 (09:00→18:46)
[2021-09-05] MEDS: Melatonin 3 MG TABLET PO SCH (20:52)
[2021-09-05] MEDS: Budesonide/Formoterol 160/4.5 1 PUFF INH IH SCH (20:56)
[2021-09-06] MEDS: Ipratropium/Albuterol Neb 3 ML IH PRN ×2 (03:33→17:16)
[2021-09-06] MEDS: *HR* Heparin 5,000 UNIT/ML VIAL SQ SCH ×3 (05:03→18:13)
[2021-09-06] MEDS: lisinopriL 20 MG TABLET PO SCH (07:46)
[2021-09-06] MEDS: Budesonide/Formoterol 160/4.5 1 PUFF INH IH SCH ×2 (10:53→20:32)
[2021-09-06] MEDS ORDERED: Baclofen 10 MG TABLET PO PRN (11:12)
[2021-09-06] MEDS: Melatonin 3 MG TABLET PO SCH (20:32)
[2021-09-07] MEDS: *HR* Heparin 5,000 UNIT/ML VIAL SQ SCH ×2 (05:12→17:36)
[2021-09-07] MEDS: amLODIPine 5 MG TABLET PO SCH (08:06)
[2021-09-07] MEDS: lisinopriL 20 MG TABLET PO SCH (08:07)
[2021-09-07] MEDS: Cholecalciferol (D-3) 1,000 UNIT (25MCG) TABLET PO SCH (08:07)
[2021-09-07] MEDS: Thiamine (B-1) 100 MG TABLET PO SCH (08:07)
[2021-09-07] MEDS: Budesonide/Formoterol 160/4.5 1 PUFF INH IH SCH ×2 (11:36→22:28)
[2021-09-07] MEDS: Ipratropium/Albuterol Neb 3 ML IH PRN (11:39)
[2021-09-07] MEDS: Melatonin 3 MG TABLET PO SCH (22:27)
[2021-09-08] MEDS: *HR* Heparin 5,000 UNIT/ML VIAL SQ SCH (05:19)
[2021-09-08] MEDS: Cholecalciferol (D-3) 1,000 UNIT (25MCG) TABLET PO SCH (07:54)
[2021-09-08] MEDS: amLODIPine 5 MG TABLET PO SCH (07:54)
[2021-09-08] MEDS: Thiamine (B-1) 100 MG TABLET PO SCH (07:54)
[2021-09-08] MEDS: lisinopriL 20 MG TABLET PO SCH (07:54)
[2021-09-08] MEDS: Budesonide/Formoterol 160/4.5 1 PUFF INH IH SCH (11:34)
[2021-09-08 13:44] LABS: Adenovirus Not Detected (Not Detect); Coronavirus 229E Not Detected (Not Detect); Coronavirus HKU1 Not Detected (Not Detect); Coronavirus NL63 Not Detected (Not Detect); Coronavirus OC43 Not Detected (Not Detect); Human Metapneumovirus Not Detected (Not Detect); Human Rhinovirus/Enterovirus Not Detected (Not Detect); Influenza A Subtype 2009 H1 Not Detected (Not Detect); SARS-CoV-2 Not Detected (Not Detect)
[2021-09-08 13:45] LABS: Bordetella Pertussis Not Detected (Not Detect); Chlamydophila pneumoniae Not Detected (Not Detect); Influenza B Not Detected (Not Detect); Mycoplasma pneumoniae Not Detected (Not Detect); Parainfluenza Virus 1 Not Detected (Not Detect); Parainfluenza Virus 2 Not Detected (Not Detect); Parainfluenza Virus 3 Not Detected (Not Detect); Parainfluenza Virus 4 Not Detected (Not Detect); Respiratory Syncytial Virus Not Detected (Not Detect)
[2021-09-08 14:37] VITALS: BP 109/65; PULSE 90; TEMP 98.3; O2SAT 97
== END 2021-09-08 15:27 ==
LOC: EMEROOARM 10:12 → 4WAOSI 10:12 → SUATTDRO 15:20 → 4WAOSI 16:12 → 3ANU 09-07 23:53
PROVIDERS: ADMIT Family Medicine; ATTEND Internal Medicine

== ENCOUNTER 2021-10-03 12:21 | Inpatient (IN) ==
[2021-10-03] MEDS ORDERED: Ipratropium/Albuterol Neb 3 ML IH ONE (12:29)
[2021-10-03] MEDS ORDERED: methylPREDNISolone 125 MG/2 ML VIAL IVP ONE (12:29)
[2021-10-03] MEDS ORDERED: 0.9 % Sodium Chloride 1,000 ML IVC ONE (12:29)
[2021-10-03 12:43] LABS: Basophils # 0.1 K/mcL (0.0-0.2); Basophils % 0.3 %; Hemoglobin 9.1 g/dL (12.9-16.9); Immature Granulocytes % 6.6 % (0-4); Lymphocytes # 1.8 K/mcL (0.6-4.6); Lymphocytes % 7.4 %; Mean Corpuscular HGB Conc 31.4 g/dL (31.6-35.5); Mean Corpuscular Hemoglobin 31.2 pg (28.0-33.3); Mean Corpuscular Volume 99.3 fL (83.0-100.0); Mean Platelet Volume 10.1 fL (9.4-12.4); Monocytes # 1.9 K/mcL (0.0-1.3); Monocytes % 7.6 %; Nucleated Red Blood Cells 0.1 /100 WBC (0); Platelet Count 473 K/mcL (140-400); Red Blood Count 2.92 M/mcL (4.19-5.50); Red Cell Distribution Width 13.3 % (11.5-14.5); Segmented Neutrophils % 78.1 %; White Blood Count 24.3 K/mcL (4.3-11.1)
[2021-10-03 13:07] LABS: BUN/Creatinine Ratio 29 (6-26); Blood Urea Nitrogen 41 mg/dL (8-23); Calcium 8.3 mg/dL (8.6-10.3); Carbon Dioxide 27 mEq/L (23-29); Chloride 101 mEq/L (98-107); Glucose 118 mg/dL (70-105); Osmolality,Calculated 293 (280-300); Potassium 4.6 mEq/L (3.5-5.1); Sodium 136 mEq/L (136-145); Troponin I < 0.03 ng/mL (< 0.04); eGFR For African Americans > 60 (> 60); eGFR For Non-African Americans 50 (> 60)
[2021-10-03] MEDS ORDERED: Albuterol 2.5 MG/3 ML NEBULIZER IH ONE (13:17)
[2021-10-03 13:31] LABS: Toxic Granulation Present (Not Present)
[2021-10-03 13:44] LABS: ABG Base Excess -3 mEq/L (-2 to 3); ABG HCO3 23 mEq/L (21-27); ABG Oxygen Saturation 88 % (95-98); ABG PCO2 44 mmHg (35-45); ABG PH 7.33 pH Units (7.32-7.45); ABG PO2 59 mmHg (85-104); ABG TCO2 25 mEq/L (20-26)
[2021-10-03] MEDS ORDERED: Azithromycin 250 MG TABLET PO ONE (13:46)
[2021-10-03] MEDS ORDERED: cefTRIAXone 1,000 MG in 0.9 % Sodium Chloride Mini Bag 100 ML IVPB ONE (13:46)
[2021-10-03 15:04] LABS: Influenza A PCR Negative (Negative); Influenza B PCR Negative (Negative); Resp. Syncytial Virus PCR Negative (Negative)
[2021-10-03] MEDS ORDERED: Perflutren Lipid Microsphere 1.3 ML in 0.9 % Sodium Chloride 8.7 ML IVP PRN (15:10)
[2021-10-03 15:13] LABS: SARS-CoV-2 by PCR (In House) Negative (Negative)
[2021-10-03] MEDS ORDERED: Acetaminophen 325 MG TABLET PO PRN (15:21)
[2021-10-03] MEDS ORDERED: Calcium Gluconate 1,000 MG/10 ML VIAL IVP ONE (15:25)
[2021-10-03] MEDS ORDERED: Calcium Gluconate 1gm/50mL 1 GM/50 ML BAG IVPB ONE (15:30)
[2021-10-03] MEDS: Ipratropium/Albuterol Neb 3 ML IH SCH ×2 (18:19→19:59)
[2021-10-03] MEDS: MethylPREDNISolone 40 MG/ML VIAL IVP SCH ×2 (18:34→23:52)
[2021-10-03] MEDS: 0.9 % Sodium Chloride 1,000 ML IVC SCH (18:35)
[2021-10-03] MEDS: Budesonide/Formoterol 160/4.5 1 PUFF INH IH SCH (20:40)
[2021-10-04 02:15] LABS: Basophils % 0.1 %; Hematocrit 24.2 % (37.5-50.1); Hemoglobin 7.7 g/dL (12.9-16.9); Immature Granulocytes % 9.6 % (0-4); Lymphocytes # 0.4 K/mcL (0.6-4.6); Lymphocytes % 2.2 %; Mean Corpuscular HGB Conc 31.8 g/dL (31.6-35.5); Mean Corpuscular Hemoglobin 31.2 pg (28.0-33.3); Mean Platelet Volume 10.5 fL (9.4-12.4); Monocytes # 0.6 K/mcL (0.0-1.3); Monocytes % 3.1 %; Neutrophils # 16.6 K/mcL (1.6-8.9); Platelet Count 368 K/mcL (140-400); Red Blood Count 2.47 M/mcL (4.19-5.50); Red Cell Distribution Width 13.4 % (11.5-14.5); White Blood Count 19.5 K/mcL (4.3-11.1)
[2021-10-04 02:33] LABS: Alanine Aminotransferase 78 Units/L (7-52); Albumin 3.2 g/dL (3.5-5.7); Albumin/Globulin Ratio 1.1 (1.1-2.2); Alkaline Phosphatase 76 Units/L (34-104); Aspartate Amino Transferase 23 Units/L (13-39); BUN/Creatinine Ratio 31 (6-26); Bilirubin,Total 0.2 mg/dL (0.3-1.0); Blood Urea Nitrogen 38 mg/dL (8-23); Calcium 7.9 mg/dL (8.6-10.3); Carbon Dioxide 25 mEq/L (23-29); Chloride 107 mEq/L (98-107); Globulin 2.9 g/dL (2.4-3.5); Glucose 233 mg/dL (70-105); Osmolality,Calculated 303 (280-300); Potassium 4.7 mEq/L (3.5-5.1); Sodium 138 mEq/L (136-145); Total Protein 6.1 g/dL (6.4-8.9); eGFR For African Americans > 60 (> 60); eGFR For Non-African Americans 58 (> 60)
[2021-10-04] MEDS: hydrOXYzine pamoate 25 MG CAPSULE PO PRN ×2 (02:52→11:05)
[2021-10-04] MEDS: Ipratropium/Albuterol Neb 3 ML IH SCH ×4 (03:18→19:47)
[2021-10-04] MEDS: MethylPREDNISolone 40 MG/ML VIAL IVP SCH ×3 (06:12→17:47)
[2021-10-04] MEDS: cefTRIAXone 1,000 MG in Water for inj. (sterile) 10 ML IVP SCH (07:21)
[2021-10-04] MEDS: amLODIPine 5 MG TABLET PO SCH (07:21)
[2021-10-04] MEDS: 0.9 % Sodium Chloride 1,000 ML IVC SCH (08:27)
[2021-10-04] MEDS ORDERED: lisinopriL 20 MG TABLET PO SCH (09:00)
[2021-10-04] MEDS: Budesonide/Formoterol 160/4.5 1 PUFF INH IH SCH ×2 (10:10→19:47)
[2021-10-04] MEDS ORDERED: Saline Nasal Spray 44 ML BOTTLE NS PRN (10:44)
[2021-10-04] MEDS: lisinopriL 20 MG TABLET PO SCH (11:05)
[2021-10-04] MEDS ORDERED: Azithromycin 500 MG VIAL ONE (15:58)
[2021-10-04] MEDS: Azithromycin 500 MG in 0.9 % Sodium Chloride 250 ML IVPB SCH (15:59)
[2021-10-04] MEDS ORDERED: *HR* LORazepam 2 MG/ML VIAL IVP ONE (16:44)
[2021-10-04 16:52] LABS: Adenovirus Not Detected (Not Detect); Bordetella Pertussis Not Detected (Not Detect); Chlamydophila pneumoniae Not Detected (Not Detect); Coronavirus 229E Not Detected (Not Detect); Coronavirus HKU1 Not Detected (Not Detect); Coronavirus NL63 Not Detected (Not Detect); Coronavirus OC43 Not Detected (Not Detect); Human Metapneumovirus Not Detected (Not Detect); Human Rhinovirus/Enterovirus Not Detected (Not Detect); Influenza A Subtype 2009 H1 Not Detected (Not Detect); Influenza B Not Detected (Not Detect); Mycoplasma pneumoniae Not Detected (Not Detect); Parainfluenza Virus 1 Not Detected (Not Detect); Parainfluenza Virus 2 Not Detected (Not Detect); Parainfluenza Virus 3 Not Detected (Not Detect); Parainfluenza Virus 4 Not Detected (Not Detect); Respiratory Syncytial Virus Not Detected (Not Detect); SARS-CoV-2 Not Detected (Not Detect)
[2021-10-05] MEDS: MethylPREDNISolone 40 MG/ML VIAL IVP SCH ×5 (00:03→23:52)
[2021-10-05] MEDS: Melatonin 3 MG TABLET PO PRN ×2 (00:03→20:47)
[2021-10-05] MEDS: hydrOXYzine pamoate 25 MG CAPSULE PO PRN ×3 (00:03→20:47)
[2021-10-05] MEDS: Ipratropium/Albuterol Neb 3 ML IH SCH ×4 (04:13→19:39)
[2021-10-05 05:58] LABS: Basophils # 0.1 K/mcL (0.0-0.2); Basophils % 0.4 %; Hematocrit 24.1 % (37.5-50.1); Hemoglobin 7.8 g/dL (12.9-16.9); Immature Granulocytes % 4.7 % (0-4); Lymphocytes # 0.7 K/mcL (0.6-4.6); Lymphocytes % 3.1 %; Mean Corpuscular HGB Conc 32.4 g/dL (31.6-35.5); Mean Corpuscular Volume 98.8 fL (83.0-100.0); Mean Platelet Volume 10.2 fL (9.4-12.4); Monocytes # 0.8 K/mcL (0.0-1.3); Monocytes % 3.6 %; Neutrophils # 19.3 K/mcL (1.6-8.9); Platelet Count 438 K/mcL (140-400); Red Blood Count 2.44 M/mcL (4.19-5.50); Red Cell Distribution Width 13.9 % (11.5-14.5); Segmented Neutrophils % 88.2 %
[2021-10-05 06:15] LABS: Alanine Aminotransferase 54 Units/L (7-52); Albumin 3.2 g/dL (3.5-5.7); Albumin/Globulin Ratio 1.1 (1.1-2.2); Alkaline Phosphatase 73 Units/L (34-104); Aspartate Amino Transferase 13 Units/L (13-39); BUN/Creatinine Ratio 31 (6-26); Bilirubin,Total 0.2 mg/dL (0.3-1.0); Blood Urea Nitrogen 36 mg/dL (8-23); Calcium 8.4 mg/dL (8.6-10.3); Carbon Dioxide 26 mEq/L (23-29); Chloride 107 mEq/L (98-107); Globulin 2.9 g/dL (2.4-3.5); Glucose 208 mg/dL (70-105); Osmolality,Calculated 304 (280-300); Potassium 4.7 mEq/L (3.5-5.1); Sodium 140 mEq/L (136-145); Total Protein 6.1 g/dL (6.4-8.9); eGFR For African Americans > 60 (> 60); eGFR For Non-African Americans > 60 (> 60)
[2021-10-05] MEDS: amLODIPine 5 MG TABLET PO SCH (09:01)
[2021-10-05] MEDS: cefTRIAXone 1,000 MG in Water for inj. (sterile) 10 ML IVP SCH (09:01)
[2021-10-05] MEDS: lisinopriL 20 MG TABLET PO SCH (09:01)
[2021-10-05] MEDS: Budesonide/Formoterol 160/4.5 1 PUFF INH IH SCH ×2 (11:17→19:39)
[2021-10-05] MEDS: *HR* LORazepam 0.5 MG TABLET PO PRN ×2 (13:04→23:52)
[2021-10-05] MEDS: Azithromycin 500 MG in 0.9 % Sodium Chloride 250 ML IVPB SCH (16:49)
[2021-10-06] MEDS: Ipratropium/Albuterol Neb 3 ML IH SCH ×4 (03:26→22:37)
[2021-10-06] MEDS: hydrOXYzine pamoate 25 MG CAPSULE PO PRN ×2 (05:30→20:30)
[2021-10-06] MEDS: MethylPREDNISolone 40 MG/ML VIAL IVP SCH (05:30)
[2021-10-06 06:34] LABS: Basophils # 0.1 K/mcL (0.0-0.2); Basophils % 0.5 %; Hematocrit 24.3 % (37.5-50.1); Hemoglobin 7.8 g/dL (12.9-16.9); Immature Granulocytes % 5.7 % (0-4); Lymphocytes % 4.2 %; Mean Corpuscular HGB Conc 32.1 g/dL (31.6-35.5); Mean Corpuscular Hemoglobin 31.7 pg (28.0-33.3); Mean Corpuscular Volume 98.8 fL (83.0-100.0); Mean Platelet Volume 10.3 fL (9.4-12.4); Monocytes # 0.8 K/mcL (0.0-1.3); Monocytes % 3.2 %; Neutrophils # 20.9 K/mcL (1.6-8.9); Platelet Count 471 K/mcL (140-400); Red Blood Count 2.46 M/mcL (4.19-5.50); Red Cell Distribution Width 14.2 % (11.5-14.5); Segmented Neutrophils % 86.4 %; White Blood Count 24.2 K/mcL (4.3-11.1)
[2021-10-06 06:54] LABS: Alanine Aminotransferase 43 Units/L (7-52); Albumin 3.1 g/dL (3.5-5.7); Alkaline Phosphatase 69 Units/L (34-104); Aspartate Amino Transferase 13 Units/L (13-39); BUN/Creatinine Ratio 26 (6-26); Bilirubin,Total 0.2 mg/dL (0.3-1.0); Blood Urea Nitrogen 33 mg/dL (8-23); Calcium 8.2 mg/dL (8.6-10.3); Carbon Dioxide 28 mEq/L (23-29); Chloride 105 mEq/L (98-107); Globulin 3.1 g/dL (2.4-3.5); Glucose 265 mg/dL (70-105); Osmolality,Calculated 307 (280-300); Sodium 140 mEq/L (136-145); Total Protein 6.2 g/dL (6.4-8.9); eGFR For African Americans > 60 (> 60); eGFR For Non-African Americans 57 (> 60)
[2021-10-06] MEDS: cefTRIAXone 1,000 MG in Water for inj. (sterile) 10 ML IVP SCH (07:30)
[2021-10-06] MEDS: amLODIPine 5 MG TABLET PO SCH (07:31)
[2021-10-06] MEDS: lisinopriL 20 MG TABLET PO SCH (07:31)
[2021-10-06] MEDS: *HR* LORazepam 0.5 MG TABLET PO PRN ×2 (07:34→20:27)
[2021-10-06] MEDS: Budesonide/Formoterol 160/4.5 1 PUFF INH IH SCH ×2 (08:07→22:36)
[2021-10-06] MEDS: Azithromycin 500 MG in 0.9 % Sodium Chloride 250 ML IVPB SCH (15:29)
[2021-10-06] MEDS: Melatonin 3 MG TABLET PO PRN (20:27)
[2021-10-07 01:07] LABS: Mean Platelet Volume 9.9 fL (9.4-12.4); Nucleated Red Blood Cells 0.1 /100 WBC (0)
[2021-10-07 01:08] LABS: Hematocrit 26.6 % (37.5-50.1); Hemoglobin 8.3 g/dL (12.9-16.9); Mean Corpuscular HGB Conc 31.2 g/dL (31.6-35.5); Mean Corpuscular Volume 99.3 fL (83.0-100.0); Platelet Count 473 K/mcL (140-400); Red Blood Count 2.68 M/mcL (4.19-5.50); Red Cell Distribution Width 14.3 % (11.5-14.5); White Blood Count 28.4 K/mcL (4.3-11.1)
[2021-10-07 01:27] LABS: Alanine Aminotransferase 35 Units/L (7-52); Albumin 3.1 g/dL (3.5-5.7); Alkaline Phosphatase 60 Units/L (34-104); Aspartate Amino Transferase 12 Units/L (13-39); BUN/Creatinine Ratio 34 (6-26); Bilirubin,Total 0.2 mg/dL (0.3-1.0); Blood Urea Nitrogen 36 mg/dL (8-23); Calcium 8.3 mg/dL (8.6-10.3); Carbon Dioxide 30 mEq/L (23-29); Chloride 105 mEq/L (98-107); Glucose 153 mg/dL (70-105); Osmolality,Calculated 303 (280-300); Potassium 5.3 mEq/L (3.5-5.1); Sodium 141 mEq/L (136-145); Total Protein 6.1 g/dL (6.4-8.9); eGFR For African Americans > 60 (> 60); eGFR For Non-African Americans > 60 (> 60)
[2021-10-07 01:30] LABS: Lymphocytes # 2.8 K/mcL (0.6-4.6); Monocytes # 0.6 K/mcL (0.0-1.3); Neutrophils # 23.3 K/mcL (1.6-8.9)
[2021-10-07] MEDS ORDERED: *HR* LORazepam 1 MG TABLET PO ONE (02:46)
[2021-10-07] MEDS: Ipratropium/Albuterol Neb 3 ML IH SCH ×4 (03:27→21:02)
[2021-10-07] MEDS: Budesonide/Formoterol 160/4.5 1 PUFF INH IH SCH ×2 (07:55→21:02)
[2021-10-07] MEDS: lisinopriL 20 MG TABLET PO SCH (08:21)
[2021-10-07] MEDS: predniSONE 20 MG TABLET PO SCH (08:21)
[2021-10-07] MEDS: amLODIPine 5 MG TABLET PO SCH (08:21)
[2021-10-07] MEDS: cefTRIAXone 1,000 MG in Water for inj. (sterile) 10 ML IVP SCH (08:22)
[2021-10-07] MEDS: hydrOXYzine pamoate 25 MG CAPSULE PO PRN (08:27)
[2021-10-07] MEDS: *HR* LORazepam 0.5 MG TABLET PO PRN (08:27)
[2021-10-07] MEDS ORDERED: *HR* LORazepam 2 MG/ML VIAL IVP ONE (12:18)
[2021-10-07] MEDS: Azithromycin 500 MG in 0.9 % Sodium Chloride 250 ML IVPB SCH (15:10)
[2021-10-07] MEDS: SODIUM ZIRCONIUM CYCLOSILICATE 5 GM POWD.PACK PO SCH (17:16)
[2021-10-08] MEDS: hydrOXYzine pamoate 25 MG CAPSULE PO PRN ×3 (01:22→20:33)
[2021-10-08] MEDS: *HR* LORazepam 0.5 MG TABLET PO PRN ×3 (01:22→20:33)
[2021-10-08] MEDS: Melatonin 3 MG TABLET PO PRN ×2 (01:22→20:34)
[2021-10-08 02:54] LABS: Hematocrit 26.1 % (37.5-50.1); Hemoglobin 8.4 g/dL (12.9-16.9); Mean Corpuscular HGB Conc 32.2 g/dL (31.6-35.5); Mean Corpuscular Hemoglobin 31.6 pg (28.0-33.3); Mean Corpuscular Volume 98.1 fL (83.0-100.0); Mean Platelet Volume 10.1 fL (9.4-12.4); Nucleated Red Blood Cells 0.1 /100 WBC (0); Platelet Count 428 K/mcL (140-400); Red Blood Count 2.66 M/mcL (4.19-5.50); Red Cell Distribution Width 13.8 % (11.5-14.5); White Blood Count 22.5 K/mcL (4.3-11.1)
[2021-10-08 03:10] LABS: BUN/Creatinine Ratio 31 (6-26); Blood Urea Nitrogen 32 mg/dL (8-23); Calcium 8.4 mg/dL (8.6-10.3); Carbon Dioxide 37 mEq/L (23-29); Chloride 100 mEq/L (98-107); Glucose 169 mg/dL (70-105); Magnesium 1.9 mg/dL (1.6-2.6); Osmolality,Calculated 303 (280-300); Phosphorous 4.3 mg/dL (2.7-4.5); Potassium 5.3 mEq/L (3.5-5.1); Sodium 141 mEq/L (136-145); eGFR For African Americans > 60 (> 60); eGFR For Non-African Americans > 60 (> 60)
[2021-10-08] MEDS: Ipratropium/Albuterol Neb 3 ML IH SCH ×4 (03:31→22:22)
[2021-10-08 03:41] LABS: Lymphocytes # 0.5 K/mcL (0.6-4.6); Monocytes # 1.8 K/mcL (0.0-1.3); Neutrophils # 19.4 K/mcL (1.6-8.9)
[2021-10-08] MEDS: predniSONE 20 MG TABLET PO SCH (08:38)
[2021-10-08] MEDS: SODIUM ZIRCONIUM CYCLOSILICATE 5 GM POWD.PACK PO SCH (08:38)
[2021-10-08] MEDS: amLODIPine 5 MG TABLET PO SCH (08:39)
[2021-10-08] MEDS: cefTRIAXone 1,000 MG in Water for inj. (sterile) 10 ML IVP SCH (08:39)
[2021-10-08] MEDS: lisinopriL 20 MG TABLET PO SCH (08:39)
[2021-10-08] MEDS: Budesonide/Formoterol 160/4.5 1 PUFF INH IH SCH ×2 (10:19→22:22)
[2021-10-08 11:05] LABS: VBG HCO3 34 mEq/L (21-27); VBG PCO2 53 mmHg (41-51); VBG PH 7.42 pH Units (7.32-7.42); VBG PO2 79 mmHg (25-50)
[2021-10-08] MEDS: Azithromycin 500 MG in 0.9 % Sodium Chloride 250 ML IVPB SCH (15:06)
[2021-10-09] MEDS: Ipratropium/Albuterol Neb 3 ML IH SCH ×2 (04:37→10:03)
[2021-10-09 06:40] LABS: Basophils # 0.2 K/mcL (0.0-0.2); Basophils % 0.9 %; Eosinophils # 0.4 K/mcL (0.0-0.6); Eosinophils % 2.1 %; Hematocrit 29.6 % (37.5-50.1); Hemoglobin 9.2 g/dL (12.9-16.9); Immature Granulocytes % 8.4 % (0-4); Lymphocytes # 2.2 K/mcL (0.6-4.6); Lymphocytes % 11.5 %; Mean Corpuscular HGB Conc 31.1 g/dL (31.6-35.5); Mean Corpuscular Hemoglobin 30.8 pg (28.0-33.3); Mean Platelet Volume 10.5 fL (9.4-12.4); Monocytes # 1.2 K/mcL (0.0-1.3); Monocytes % 6.3 %; Neutrophils # 13.5 K/mcL (1.6-8.9); Nucleated Red Blood Cells 0.1 /100 WBC (0); Platelet Count 385 K/mcL (140-400); Red Blood Count 2.99 M/mcL (4.19-5.50); Segmented Neutrophils % 70.8 %
[2021-10-09 06:58] LABS: BUN/Creatinine Ratio 28 (6-26); Blood Urea Nitrogen 28 mg/dL (8-23); Calcium 8.5 mg/dL (8.6-10.3); Carbon Dioxide 39 mEq/L (23-29); Chloride 98 mEq/L (98-107); Glucose 102 mg/dL (70-105); Magnesium 1.6 mg/dL (1.6-2.6); Osmolality,Calculated 296 (280-300); Phosphorous 4.1 mg/dL (2.7-4.5); Potassium 4.6 mEq/L (3.5-5.1); Sodium 140 mEq/L (136-145); eGFR For African Americans > 60 (> 60); eGFR For Non-African Americans > 60 (> 60)
[2021-10-09 07:20] VITALS: TEMP 98.1; O2SAT 93
[2021-10-09] MEDS: amLODIPine 5 MG TABLET PO SCH (08:15)
[2021-10-09] MEDS: SODIUM ZIRCONIUM CYCLOSILICATE 5 GM POWD.PACK PO SCH (08:15)
[2021-10-09] MEDS: *HR* LORazepam 0.5 MG TABLET PO PRN (08:15)
[2021-10-09] MEDS: predniSONE 20 MG TABLET PO SCH (08:15)
[2021-10-09] MEDS: lisinopriL 20 MG TABLET PO SCH (08:15)
[2021-10-09] MEDS ORDERED: levoFLOXacin 750 MG TABLET PO SCH (09:00)
[2021-10-09] MEDS: Budesonide/Formoterol 160/4.5 1 PUFF INH IH SCH (10:02)
[2021-10-09 10:05] LABS: Adenovirus Not Detected (Not Detect); Bordetella Pertussis Not Detected (Not Detect); Chlamydophila pneumoniae Not Detected (Not Detect); Coronavirus 229E Not Detected (Not Detect); Coronavirus HKU1 Not Detected (Not Detect); Coronavirus NL63 Not Detected (Not Detect); Coronavirus OC43 Not Detected (Not Detect); Human Metapneumovirus Not Detected (Not Detect); Human Rhinovirus/Enterovirus Not Detected (Not Detect); Influenza A Subtype 2009 H1 Not Detected (Not Detect); Influenza B Not Detected (Not Detect); Mycoplasma pneumoniae Not Detected (Not Detect); Parainfluenza Virus 1 Not Detected (Not Detect); Parainfluenza Virus 2 Not Detected (Not Detect); Parainfluenza Virus 3 Not Detected (Not Detect); Parainfluenza Virus 4 Not Detected (Not Detect); Respiratory Syncytial Virus Not Detected (Not Detect); SARS-CoV-2 Not Detected (Not Detect)
[2021-10-09 11:26] VITALS: BP 160/106; PULSE 90
[2021-10-09] MEDS: hydrOXYzine pamoate 25 MG CAPSULE PO PRN (12:48)
== END 2021-10-09 13:54 | DRG 871 ==
LOC: 2NNU 12:21 → EMEROOARM 12:21 → SUATTDRO 16:59 → 2NNU 17:23 → 3NENU 10-04 14:19
PROVIDERS: ADMIT Family Medicine; ATTEND Internal Medicine

== ENCOUNTER 2022-05-03 19:12 | Inpatient (IN) ==
[2022-05-03 22:29] LABS: Basophils # 0.1 K/mcL (0.0-0.2); Basophils % 1.5 %; Eosinophils # 0.2 K/mcL (0.0-0.6); Eosinophils % 2.3 %; Hematocrit 28.1 % (37.5-50.1); Hemoglobin 9.5 g/dL (12.9-16.9); Immature Granulocytes % 0.7 % (0-4); Lymphocytes # 0.8 K/mcL (0.6-4.6); Lymphocytes % 10.9 %; Mean Corpuscular HGB Conc 33.8 g/dL (31.6-35.5); Mean Corpuscular Hemoglobin 28.3 pg (28.0-33.3); Mean Corpuscular Volume 83.6 fL (83.0-100.0); Monocytes # 0.9 K/mcL (0.0-1.3); Monocytes % 13.4 %; Neutrophils # 4.9 K/mcL (1.6-8.9); Platelet Count 477 K/mcL (140-400); Red Blood Count 3.36 M/mcL (4.19-5.50); Red Cell Distribution Width 13.3 % (11.5-14.5); Segmented Neutrophils % 71.2 %; White Blood Count 6.9 K/mcL (4.3-11.1)
[2022-05-03 22:40] LABS: Alanine Aminotransferase 6 Units/L (7-52); Albumin 3.5 g/dL (3.5-5.7); Albumin/Globulin Ratio 0.9 (1.1-2.2); Alkaline Phosphatase 123 Units/L (34-104); Aspartate Amino Transferase 15 Units/L (13-39); BUN/Creatinine Ratio 11 (6-26); Bilirubin,Total 0.4 mg/dL (0.3-1.0); Blood Urea Nitrogen 11 mg/dL (8-23); Calcium 8.6 mg/dL (8.6-10.3); Carbon Dioxide 28 mEq/L (23-29); Chloride 81 mEq/L (98-107); Globulin 3.7 g/dL (2.4-3.5); Glucose 116 mg/dL (70-105); Osmolality,Calculated 242 (280-300); Potassium 4.7 mEq/L (3.5-5.1); Sodium 116 mEq/L (136-145); Total Protein 7.2 g/dL (6.4-8.9); eGFR For African Americans > 60 (> 60); eGFR For Non-African Americans > 60 (> 60)
[2022-05-03] MEDS ORDERED: Naloxone 0.4 MG/ML INJ IVP PRN (23:34)
[2022-05-04] MEDS ORDERED: 0.9 % Sodium Chloride 1,000 ML IVC SCH ×4 (00:15→16:27)
[2022-05-04 02:28] LABS: Chol/HDL Ratio 1.7 (0-4.9)
[2022-05-04 03:08] LABS: BUN/Creatinine Ratio 13 (6-26); Blood Urea Nitrogen 15 mg/dL (8-23); Calcium 8.2 mg/dL (8.6-10.3); Carbon Dioxide 27 mEq/L (23-29); Chloride 84 mEq/L (98-107); Glucose 113 mg/dL (70-105); Osmolality,Calculated 244 (280-300); Potassium 4.7 mEq/L (3.5-5.1); Sodium 116 mEq/L (136-145); eGFR For African Americans > 60 (> 60); eGFR For Non-African Americans > 60 (> 60)
[2022-05-04 03:25] LABS: Potassium,Urine 18.9 mEq/L
[2022-05-04] MEDS: 0.9 % Sodium Chloride 1,000 ML IVC SCH ×2 (04:05→12:09)
[2022-05-04] MEDS ORDERED: *HR* LORazepam 2 MG/ML VIAL IVP PRN (05:21)
[2022-05-04] MEDS: *HR* Enoxaparin 40 MG/0.4 ML SYRINGE SQ SCH (06:25)
[2022-05-04] MEDS: Dextromethorphan Polistrx(12h) 30 MG/5 ML UDC PO PRN ×2 (06:30→20:31)
[2022-05-04 08:19] LABS: Basophils # 0.1 K/mcL (0.0-0.2); Hematocrit 25.1 % (37.5-50.1); Hemoglobin 8.4 g/dL (12.9-16.9); Mean Corpuscular HGB Conc 33.5 g/dL (31.6-35.5); Mean Corpuscular Hemoglobin 28.3 pg (28.0-33.3); Mean Corpuscular Volume 84.5 fL (83.0-100.0); Mean Platelet Volume 9.7 fL (9.4-12.4); Platelet Count 376 K/mcL (140-400); Red Blood Count 2.97 M/mcL (4.19-5.50); Red Cell Distribution Width 13.5 % (11.5-14.5); White Blood Count 6.6 K/mcL (4.3-11.1)
[2022-05-04 08:27] LABS: INR 1.6; Prothrombin Time 17.4 Seconds (9.4-12.1)
[2022-05-04 08:43] LABS: Magnesium 1.4 mg/dL (1.6-2.6); Phosphorous 3.8 mg/dL (2.7-4.5)
[2022-05-04 08:44] LABS: % Iron Saturation 19 % (20-55); Iron 41 mcg/dL (65-175); Transferrin 151 mg/dL (203-362)
[2022-05-04 08:50] LABS: BUN/Creatinine Ratio 14 (6-26); Blood Urea Nitrogen 15 mg/dL (8-23); Calcium 8.1 mg/dL (8.6-10.3); Carbon Dioxide 26 mEq/L (23-29); Chloride 87 mEq/L (98-107); Glucose 100 mg/dL (70-105); Osmolality,Calculated 249 (280-300); Sodium 119 mEq/L (136-145); eGFR For African Americans > 60 (> 60); eGFR For Non-African Americans > 60 (> 60)
[2022-05-04] MEDS: Folic Acid 1 MG TABLET PO SCH (09:24)
[2022-05-04] MEDS: Thiamine (B-1) 100 MG TABLET PO SCH (09:24)
[2022-05-04 11:05] LABS: BUN/Creatinine Ratio 13 (6-26); Blood Urea Nitrogen 14 mg/dL (8-23); Calcium 7.9 mg/dL (8.6-10.3); Carbon Dioxide 26 mEq/L (23-29); Chloride 88 mEq/L (98-107); Ferritin 364 ng/mL (20-250); Glucose 103 mg/dL (70-105); Osmolality,Calculated 251 (280-300); Potassium 4.8 mEq/L (3.5-5.1); Sodium 120 mEq/L (136-145); eGFR For African Americans > 60 (> 60); eGFR For Non-African Americans > 60 (> 60)
[2022-05-04] MEDS: hydrOXYzine pamoate 25 MG CAPSULE PO PRN ×2 (12:08→20:09)
[2022-05-04 13:31] LABS: Eosinophils # 0.1 K/mcL (0.0-0.6); Hypochromasia Present (Not Present); Lymphocytes # 1.2 K/mcL (0.6-4.6); Monocytes # 1.1 K/mcL (0.0-1.3); Neutrophils # 4.1 K/mcL (1.6-8.9); Platelet Estimate Normal (Normal)
[2022-05-04 14:50] LABS: BUN/Creatinine Ratio 13 (6-26); Blood Urea Nitrogen 13 mg/dL (8-23); Carbon Dioxide 28 mEq/L (23-29); Chloride 89 mEq/L (98-107); Glucose 106 mg/dL (70-105); Osmolality,Calculated 253 (280-300); Potassium 4.6 mEq/L (3.5-5.1); Sodium 121 mEq/L (136-145); eGFR For African Americans > 60 (> 60); eGFR For Non-African Americans > 60 (> 60)
[2022-05-04 18:08] LABS: BUN/Creatinine Ratio 13 (6-26); Blood Urea Nitrogen 13 mg/dL (8-23); Calcium 7.9 mg/dL (8.6-10.3); Carbon Dioxide 24 mEq/L (23-29); Chloride 92 mEq/L (98-107); Glucose 102 mg/dL (70-105); Osmolality,Calculated 256 (280-300); Potassium 5.2 mEq/L (3.5-5.1); Sodium 123 mEq/L (136-145); eGFR For African Americans > 60 (> 60); eGFR For Non-African Americans > 60 (> 60)
[2022-05-04] MEDS: Melatonin 3 MG TABLET PO SCH (20:09)
[2022-05-04 22:49] LABS: BUN/Creatinine Ratio 15 (6-26); Blood Urea Nitrogen 12 mg/dL (8-23); Calcium 8.1 mg/dL (8.6-10.3); Carbon Dioxide 27 mEq/L (23-29); Chloride 91 mEq/L (98-107); Glucose 97 mg/dL (70-105); Osmolality,Calculated 254 (280-300); Potassium 4.9 mEq/L (3.5-5.1); Sodium 122 mEq/L (136-145); eGFR For African Americans > 60 (> 60); eGFR For Non-African Americans > 60 (> 60)
[2022-05-05] MEDS: hydrOXYzine pamoate 25 MG CAPSULE PO PRN (04:48)
[2022-05-05] MEDS: *HR* Enoxaparin 40 MG/0.4 ML SYRINGE SQ SCH (05:38)
[2022-05-05] MEDS ORDERED: Ondansetron ODT 4 MG TAB.RAPDIS SL PRN (08:46)
[2022-05-05] MEDS ORDERED: Melatonin 3 MG TABLET PO PRN (08:46)
[2022-05-05] MEDS: amLODIPine 5 MG TABLET PO SCH (08:46)
[2022-05-05] MEDS: Thiamine (B-1) 100 MG TABLET PO SCH (09:03)
[2022-05-05] MEDS: Folic Acid 1 MG TABLET PO SCH (09:04)
[2022-05-05 09:27] LABS: BUN/Creatinine Ratio 10 (6-26); Blood Urea Nitrogen 9 mg/dL (8-23); Carbon Dioxide 28 mEq/L (23-29); Chloride 90 mEq/L (98-107); Glucose 119 mg/dL (70-105); Magnesium 1.6 mg/dL (1.6-2.6); Osmolality,Calculated 256 (280-300); Potassium 4.6 mEq/L (3.5-5.1); Sodium 123 mEq/L (136-145); eGFR For African Americans > 60 (> 60); eGFR For Non-African Americans > 60 (> 60)
[2022-05-05] MEDS: 0.9 % Sodium Chloride 1,000 ML IVC SCH ×2 (14:07→21:13)
[2022-05-05] MEDS ORDERED: *HR* LORazepam 2 MG/ML VIAL IVP PRN ×3 (14:42)
[2022-05-05] MEDS: Melatonin 3 MG TABLET PO SCH (21:12)
[2022-05-06] MEDS: *HR* Enoxaparin 40 MG/0.4 ML SYRINGE SQ SCH (03:30)
[2022-05-06 03:49] LABS: Hematocrit 24.1 % (37.5-50.1); Hemoglobin 7.7 g/dL (12.9-16.9); Mean Corpuscular Hemoglobin 28.2 pg (28.0-33.3); Mean Corpuscular Volume 88.3 fL (83.0-100.0); Mean Platelet Volume 10.9 fL (9.4-12.4); Platelet Count 236 K/mcL (140-400); Red Blood Count 2.73 M/mcL (4.19-5.50); Red Cell Distribution Width 13.5 % (11.5-14.5); White Blood Count 5.8 K/mcL (4.3-11.1)
[2022-05-06 04:08] LABS: BUN/Creatinine Ratio 10 (6-26); Blood Urea Nitrogen 9 mg/dL (8-23); Calcium 7.9 mg/dL (8.6-10.3); Carbon Dioxide 27 mEq/L (23-29); Chloride 92 mEq/L (98-107); Glucose 83 mg/dL (70-105); Osmolality,Calculated 258 (280-300); Potassium 4.4 mEq/L (3.5-5.1); Sodium 125 mEq/L (136-145); eGFR For African Americans > 60 (> 60); eGFR For Non-African Americans > 60 (> 60)
[2022-05-06 04:43] LABS: Eosinophils # 0.1 K/mcL (0.0-0.6); Lymphocytes # 0.6 K/mcL (0.6-4.6); Monocytes # 1.2 K/mcL (0.0-1.3); Neutrophils # 3.9 K/mcL (1.6-8.9)
[2022-05-06 04:44] LABS: Platelet Estimate Normal (Normal)
[2022-05-06] MEDS: amLODIPine 5 MG TABLET PO SCH (08:45)
[2022-05-06] MEDS: Folic Acid 1 MG TABLET PO SCH (08:45)
[2022-05-06] MEDS: Thiamine (B-1) 100 MG TABLET PO SCH (08:45)
[2022-05-06 11:38] VITALS: BP 115/62; PULSE 87; TEMP 99.5; O2SAT 91
[2022-05-06] MEDS: 0.9 % Sodium Chloride 1,000 ML IVC SCH (11:43)
[2022-05-06] MEDS ORDERED: Sennosides/Docusate Sodium TABLET PO PRN (13:13)
== END 2022-05-06 15:15 | disposition home or self-care (01) | DRG 640 ==
LOC: 3NENU 19:12 → EMEROOARM 19:12 → SUATTDRO 23:31 → 3NENU 05-04 00:17 → SUATTDRO 05-04 13:59
PROVIDERS: ADMIT Internal Medicine; ATTEND Family Medicine